=== PATIENT | female | born 1945 | race Caucasian/White ===

== ENCOUNTER 2017-10-23 12:51 | Outpatient (RCR) | payer MEDICARE, OTHER, SELFPAY ==
[2017-10-23 14:23] LABS: International Normalized Ratio 1.9; Prothrombin Time (Protime)PT. 21.1 SECONDS (11.7-14.9)
== END 2017-10-23 13:00 | disposition home or self-care (01) ==
LOC: MTLAB 12:51
PROVIDERS: Family Provider Family Medicine; PCP Family Medicine; Visit Provider Internal Medicine Cardiovascular Disease
DX: I48.0 Paroxysmal atrial fibrillation (principal)
CPT/HCPCS: 36415; 85610

== ENCOUNTER 2017-12-14 08:04 | Outpatient (RCR) | payer MEDICARE, OTHER, SELFPAY ==
[2017-11-19 12:10] LABS: International Normalized Ratio 2.4; Prothrombin Time (Protime)PT. 24.9 SECONDS (11.7-14.9)
[2017-12-14 10:39] LABS: AST(SGOT) 29 U/L (15-37); Alanine Aminotransfer ALT/SGPT 33 U/L (13-56); Albumin, Serum 3.8 g/dL (3.2-5.0); Alkaline Phosphatase 104 U/L (45-117); Bilirubin, Direct 0.09 mg/dL (0.00-0.30); Cholesterol 232 mg/dL (200); Globulin 3.7 g/dL (2.2-4.2); High Density Lipoprotein 43 mg/dL; Protein, Total 7.5 g/dL (6.4-8.2); Triglycerides 301 mg/dL; Very Low Density Lipoprotein 60 mg/dL (5-40)
[2017-12-21 12:18] LABS: Prothrombin Time (Protime)PT. 22.3 SECONDS (11.7-14.9)
== END 2017-12-14 09:00 | disposition home or self-care (01) ==
LOC: LAB 08:04
PROVIDERS: Family Provider Family Medicine; PCP Family Medicine; Visit Provider Internal Medicine Cardiovascular Disease
DX: E78.5 Hyperlipidemia, unspecified (principal); Z79.899 Other long term (current) drug therapy; I48.0 Paroxysmal atrial fibrillation
CPT/HCPCS: 36415; 80061; 80076; 85610

== ENCOUNTER 2018-01-21 09:15 | Outpatient (RCR) | payer MEDICARE, OTHER, SELFPAY ==
[2018-01-21 10:11] LABS: International Normalized Ratio 2.4; Prothrombin Time (Protime)PT. 26.1 SECONDS (11.7-14.9)
== END 2018-01-21 10:00 | disposition home or self-care (01) ==
LOC: LAB 09:15
PROVIDERS: Family Provider Family Medicine; PCP Family Medicine; Visit Provider Internal Medicine Cardiovascular Disease
DX: I48.0 Paroxysmal atrial fibrillation (principal)
CPT/HCPCS: 36415; 85610

== ENCOUNTER 2018-02-25 09:36 | Outpatient (RCR) | payer MEDICARE, OTHER, SELFPAY ==
[2018-02-25 12:30] LABS: International Normalized Ratio 2.6; Prothrombin Time (Protime)PT. 27.9 SECONDS (11.7-14.9)
== END 2018-02-25 10:00 | disposition home or self-care (01) ==
LOC: LAB 09:36
PROVIDERS: Family Provider Family Medicine; PCP Family Medicine; Visit Provider Internal Medicine Cardiovascular Disease
DX: I48.0 Paroxysmal atrial fibrillation (principal)
CPT/HCPCS: 36415; 85610

== ENCOUNTER → 2018-03-02 15:20 | Outpatient (CLI) | payer MEDICARE, OTHER, SELFPAY ==
[2018-03-02 17:56] LABS: Absolute Lymphocyte Count 4.51 X10^3/ul (0.83-4.51); Absolute Neutrophil Count 4.6 X10^3/uL (2.0-7.7); Basophil# 0.02 X10^3/uL; Basophil% 0.2 % (0-1); Eosinophil# 0.11 X10^3/uL; Eosinophils% 1.1 % (0-5); Hematocrit 37.8 % (37-47); Hemoglobin 12.5 g/dl (12.0-15.0); Lymphocyte # 4.51 X10^3/ul (4.0); Lymphocyte % 45.1 % (19-41); Mean Corp Hgb Conc 33.1 g/gl (32-36); Mean Corpuscular Hgb 30.3 pg (27.0-32.0); Mean Corpuscular Volume 91.5 fL (81-99); Monocyte# 0.74 X10^3/uL; Monocyte% 7.4 % (0-10); Neutrophil % 46.1 % (47-70); Platelet Count 302 K/mm3 (150-450); RBC Distribution Width CV 12.9 % (11.6-14.6); RBC Distribution Width SD 43.1 fl (35.1-43.9); Red Blood Count 4.13 M/mm3 (4.2-5.4)
[2018-03-02 18:01] LABS: POSITIVE COUNT NO; POSITIVE DIFFERENTIAL NO; POSITIVE MORPHOLOGY NO
[2018-03-02 18:05] LABS: ALB/GLOB Ratio 1.1 RATIO (0.9-2.4); AST(SGOT) 26 U/L (15-37); Alanine Aminotransfer ALT/SGPT 26 U/L (13-56); Albumin, Serum 4.1 g/dL (3.2-5.0); Alkaline Phosphatase 90 U/L (45-117); Anion Gap 10 (5-15); BUN 16 mg/dL (7-18); BUN/Creat Ratio 19.6 RATIO (10-20); Chloride 104 mmol/L (98-107); Creatinine, Serum 0.82 mg/dL (0.55-1.02); EST Glomerular Filtration Rate 73 mL/min (>60); Est Glom Filt Rate - Afr Amer 88 mL/min (>60); Globulin 3.6 g/dL (2.2-4.2); Glucose 89 mg/dL (74-106); Potassium 3.8 mmol/L (3.5-5.1); Protein, Total 7.7 g/dL (6.4-8.2); Sodium Level 138 mmol/L (136-145)
== END ==
PROVIDERS: Family Provider Family Medicine; PCP Family Medicine; Visit Provider Nurse Practitioner Adult Health
DX: R53.83 Other fatigue (principal)
CPT/HCPCS: 36415; 80053; 85025

== ENCOUNTER 2018-04-12 11:22 | Outpatient (RCR) | payer MEDICARE, OTHER, SELFPAY ==
[2018-04-12 15:04] LABS: International Normalized Ratio 2.5; Prothrombin Time (Protime)PT. 26.8 SECONDS (11.7-14.9)
== END 2018-04-12 12:00 | disposition home or self-care (01) ==
LOC: LAB 11:22
PROVIDERS: Family Provider Family Medicine; PCP Family Medicine; Visit Provider Internal Medicine Cardiovascular Disease
DX: I48.0 Paroxysmal atrial fibrillation (principal)
CPT/HCPCS: 36415; 85610

== ENCOUNTER 2018-05-31 12:46 | Outpatient (RCR) | payer MEDICARE, OTHER, SELFPAY | END 2018-05-31 14:00 | disposition home or self-care (01) | LOC: LAB 12:46 | PROVIDERS: Family Provider Family Medicine; PCP Family Medicine; Visit Provider Internal Medicine Cardiovascular Disease | DX: I48.0 Paroxysmal atrial fibrillation (principal) | CPT/HCPCS: 36416; 85610 ==

== ENCOUNTER 2018-07-06 16:03 | Outpatient (RCR) | payer MEDICARE, OTHER, SELFPAY ==
[2018-07-06 16:15] LABS: Prothrombin Time Fingerstick 32.4 SEC (11.9-14.4)
== END 2018-07-06 17:00 | disposition home or self-care (01) ==
LOC: MTLAB 16:03
PROVIDERS: Family Provider Family Medicine; PCP Family Medicine; Visit Provider Internal Medicine Cardiovascular Disease
DX: I48.0 Paroxysmal atrial fibrillation (principal)
CPT/HCPCS: 36416; 85610

== ENCOUNTER → 2018-07-22 08:28 | Outpatient (CLI) | payer MEDICARE, OTHER, SELFPAY ==
--- NOTE | 2018-07-22 08:32 | BI_ITS ---
MAMMOGRAPHY - BILATERAL SCREENING REASON FOR EXAM: Female, 73 years old. Routine annual screening examination. 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 2-D mediolateral oblique (MLO) and craniocaudad (CC) views of both breasts were obtained. CAD: Full Field Digital Mammography with Computer Added Detection was performed. COMPARISON: None. FINDINGS: Breast Composition: There are scattered areas of fibroglandular density. There are no dominant masses or suspicious calcifications. No other significant abnormalities are identified. BI/SCREENING MAMM (CAD), BILAT IMPRESSION: Stable bilateral screening mammogram. Yearly follow-up mammogram recommended. (A) ASSESSMENT CATEGORY: BIRADS Category 2: Benign. A letter regarding these results will be sent to the patient by the facility within 30 days. Approximately 10% of breast cancers are not detected by mammography. A normal mammogram should not delay biopsy of a clinically suspicious abnormality. [id number] Electronically Signed: Nahomi Matute MD at 16:28 EDT Tel , Service support ,
== END ==
PROVIDERS: Family Provider Family Medicine; PCP Family Medicine; Referring Provider Family Medicine; Visit Provider Family Medicine
DX: Z12.31 Encounter for screening mammogram for malignant neoplasm of breast (principal)
CPT/HCPCS: 77063; 77067

== ENCOUNTER → 2018-09-01 09:21 | Outpatient (CLI) | payer MEDICARE, OTHER, SELFPAY ==
[2018-09-01 10:11] LABS: International Normalized Ratio 1.5; Prothrombin Time (Protime)PT. 18.3 SECONDS (11.7-14.9)
[2018-09-01 10:35] LABS: AST(SGOT) 23 U/L (15-37); Alanine Aminotransfer ALT/SGPT 29 U/L (13-56); Albumin, Serum 3.7 g/dL (3.2-5.0); Alkaline Phosphatase 88 U/L (45-117); Bilirubin, Direct 0.16 mg/dL (0.00-0.30); Cholesterol 214 mg/dL (200); Globulin 3.6 g/dL (2.2-4.2); High Density Lipoprotein 49 mg/dL; Protein, Total 7.3 g/dL (6.4-8.2); Triglycerides 263 mg/dL; Very Low Density Lipoprotein 53 mg/dL (5-40)
== END ==
PROVIDERS: Family Provider Family Medicine; PCP Family Medicine; Referring Provider Internal Medicine Cardiovascular Disease; Visit Provider Internal Medicine Cardiovascular Disease
DX: E78.5 Hyperlipidemia, unspecified (principal); Z79.899 Other long term (current) drug therapy; Z79.01 Long term (current) use of anticoagulants; I47.1 Supraventricular tachycardia; I48.0 Paroxysmal atrial fibrillation
CPT/HCPCS: 36415; 80061; 80076; 85610

== ENCOUNTER → 2018-09-03 09:47 | Outpatient (CLI) | payer MEDICARE, OTHER, SELFPAY ==
[2018-09-03 11:15] LABS: Anion Gap 8 (5-15); BUN 11 mg/dL (7-18); BUN/Creat Ratio 16.4 RATIO (10-20); Calcium,Total 8.6 mg/dL (8.5-10.1); Chloride 103 mmol/L (98-107); Creatinine, Serum 0.67 mg/dL (0.55-1.02); EST Glomerular Filtration Rate 91 mL/min (>60); Est Glom Filt Rate - Afr Amer 110 mL/min (>60); Glucose 85 mg/dL (74-106); Magnesium 2.1 mg/dL (1.6-2.6); Potassium 4.1 mmol/L (3.5-5.1); Sodium Level 137 mmol/L (136-145); T4 Total, Thyroxin 9.8 ug/dL (4.8-13.9); Thyroid Stim Hormone (TSH) 1.33 uIU/mL (0.358-3.74)
== END ==
PROVIDERS: Family Provider Family Medicine; PCP Family Medicine; Referring Provider Internal Medicine Cardiovascular Disease; Visit Provider Internal Medicine Cardiovascular Disease
DX: I47.1 Supraventricular tachycardia (principal); I48.0 Paroxysmal atrial fibrillation; I49.3 Ventricular premature depolarization
CPT/HCPCS: 36415; 80048; 83735; 84436; 84443

== ENCOUNTER 2018-09-13 11:43 | Outpatient (RCR) | payer MEDICARE, OTHER, SELFPAY ==
[2018-08-27 14:10] LABS: Prothrombin Time Fingerstick 46.1 SEC (11.9-14.4)
[2018-08-27 16:07] LABS: International Normalized Ratio 3.3; Prothrombin Time (Protime)PT. 33.5 SECONDS (11.7-14.9)
[2018-09-13 14:46] LABS: International Normalized Ratio 1.8; Prothrombin Time (Protime)PT. 20.8 SECONDS (11.7-14.9)
== END 2018-09-13 12:00 | disposition home or self-care (01) ==
LOC: MTLAB 11:43
PROVIDERS: Family Provider Family Medicine; PCP Family Medicine; Referring Provider Internal Medicine Cardiovascular Disease; Visit Provider Internal Medicine Cardiovascular Disease
DX: I48.0 Paroxysmal atrial fibrillation (principal)
CPT/HCPCS: 36415; 36416; 85610

== ENCOUNTER 2018-09-27 11:01 | Outpatient (RCR) | payer MEDICARE, OTHER, SELFPAY ==
[2018-09-27 12:29] LABS: International Normalized Ratio 2.3; Prothrombin Time (Protime)PT. 25.3 SECONDS (11.7-14.9)
== END 2018-09-27 12:00 | disposition home or self-care (01) ==
LOC: MTLAB 11:01
PROVIDERS: Family Provider Family Medicine; PCP Family Medicine; Referring Provider Internal Medicine Cardiovascular Disease; Visit Provider Internal Medicine Cardiovascular Disease
DX: I47.1 Supraventricular tachycardia (principal)
CPT/HCPCS: 36415; 85610

== ENCOUNTER 2018-10-22 10:52 | Outpatient (RCR) | payer MEDICARE, OTHER, SELFPAY ==
[2018-10-22 12:32] LABS: International Normalized Ratio 2.3; Prothrombin Time (Protime)PT. 25.8 SECONDS (11.7-14.9)
== END 2018-10-22 12:00 | disposition home or self-care (01) ==
LOC: MTLAB 10:52
PROVIDERS: Physician Assistant Medical; Family Provider Family Medicine; PCP Family Medicine; Referring Provider Internal Medicine Cardiovascular Disease; Visit Provider Internal Medicine Cardiovascular Disease
DX: I47.1 Supraventricular tachycardia (principal)
CPT/HCPCS: 36415; 85610

== ENCOUNTER 2018-11-22 11:49 | Outpatient (RCR) | payer MEDICARE, OTHER, SELFPAY ==
[2018-11-22 12:06] LABS: Prothrombin Time Fingerstick 28.9 SEC (11.9-14.4)
== END 2018-11-22 12:00 | disposition home or self-care (01) ==
LOC: MTLAB 11:49
PROVIDERS: Family Provider Family Medicine; PCP Family Medicine; Referring Provider Internal Medicine Cardiovascular Disease; Visit Provider Internal Medicine Cardiovascular Disease
DX: I47.1 Supraventricular tachycardia (principal)
CPT/HCPCS: 36416; 85610

== ENCOUNTER → 2018-11-25 08:54 | Outpatient (CLI) | payer MEDICARE, OTHER, SELFPAY | PROVIDERS: Family Provider Family Medicine; PCP Family Medicine; Referring Provider Internal Medicine Cardiovascular Disease; Visit Provider Internal Medicine Cardiovascular Disease | DX: I47.1 Supraventricular tachycardia (principal); I49.3 Ventricular premature depolarization; I48.0 Paroxysmal atrial fibrillation; R00.2 Palpitations | CPT/HCPCS: 93225; 93226 ==

== ENCOUNTER 2018-12-17 11:16 | Outpatient (RCR) | payer MEDICARE, OTHER, SELFPAY ==
[2018-12-17 11:30] LABS: Prothrombin Time Fingerstick 28.8 SEC (11.9-14.4)
== END 2018-12-17 12:00 | disposition home or self-care (01) ==
LOC: MTLAB 11:16
PROVIDERS: Family Provider Family Medicine; PCP Family Medicine; Referring Provider Internal Medicine Cardiovascular Disease; Visit Provider Internal Medicine Cardiovascular Disease
DX: I47.1 Supraventricular tachycardia (principal)
CPT/HCPCS: 36416; 85610

== ENCOUNTER 2019-02-10 11:44 | Outpatient (RCR) | payer MEDICARE, OTHER, SELFPAY ==
[2019-01-17 11:31] LABS: Prothrombin Time Fingerstick 33.7 SEC (11.9-14.4)
[2019-02-10 12:05] LABS: Prothrombin Time Fingerstick 35.1 SEC (11.9-14.4)
== END 2019-02-15 16:00 | disposition home or self-care (01) ==
LOC: LAB 11:44
PROVIDERS: Family Provider Family Medicine; PCP Family Medicine; Referring Provider Internal Medicine Cardiovascular Disease; Visit Provider Internal Medicine Cardiovascular Disease
DX: I47.1 Supraventricular tachycardia (principal)
CPT/HCPCS: 36416; 85610

== ENCOUNTER → 2019-03-07 06:52 | Outpatient (CLI) | payer MEDICARE, OTHER, SELFPAY ==
[2019-01-27 13:33] VITALS: BMI 27.8
--- NOTE | 2019-03-07 06:54 | ECHOD_ITS ---
Reason For Study: DYSPNEA/SOB Procedure This was a 2D Doppler, Color Flow transthoracic echocardiogram. Exam performed in department. Left Ventricle Normal LV size. Left ventricular systolic function is normal. The estimated ejection fraction is 65 %. Stage 2 diastolic dysfunction. No regional wall motion abnormalities noted. Right Ventricle Normal RV size. Normal systolic function. Atria The left atrium is mildly enlarged. Normal right atrium. Mitral Valve Normal mitral valve. Mild (1+) mitral valve insufficiency. Tricuspid Valve Normal tricuspid valve. Mild (1+) tricuspid valve insufficiency. Pulmonary artery systolic pressure is 28 mmHg. Aortic Valve Normal aortic valve. Pulmonic Valve Normal pulmonic valve. Great Vessels Normal aortic root. The pulmonary artery is normal size. Normal inferior vena cava. Pericardium/Pleural No pericardial effusion. MMode/2D Measurements & Calculations LVIDd: 4.7 cm IVSd: 0.67 cm Ao root diam: 3.3 cm LVIDs: 2.7 cm LVPWd: 0.75 cm RVDd: 3.1 cm FS: 43.3 % LAV(MOD-bp): 69.6 ml LA A4 area: 22.7 cm2 LA dimension(2D): 3.3 cm LAV(MOD-bp) Indexed: 40.1 ml/m2 LAV(MOD-sp2): 62.9 ml LAV(MOD-sp4): 71.9 ml RA A4 area: 15.0 cm2 Time Measurements MV dec time: 0.15 sec Doppler Measurements & Calculations MV E max jones: 107.4 cm/sec Lat Peak E' Jones: 10.0 cm/sec Med Peak E' Jones: 7.9 cm/sec MV A max jones: 69.9 cm/sec E/E' lat: 10.8 E/E' med: 13.6 MV E/A: 1.5 Ao V2 max: 110.7 cm/sec LV V1 max: 108.8 cm/sec PA V2 max: 95.0 cm/sec Ao max P.9 mmHg LV V1 max P.7 mmHg TR max jones: 245.6 cm/sec TR max P.2 mmHg Interpretation Summary Normal LV size. Left ventricular systolic function is normal. The estimated ejection fraction is 65 %. Stage 2 diastolic dysfunction. Mild (1+) mitral valve insufficiency. Mild (1+) tricuspid valve insufficiency. Ordering Physician: Romero Reaves Referring Physician: Romero Ramos Performed By: Darcy Abbasi RDCS, RVT
--- NOTE | 2019-03-07 11:14 | STRESSREP ---
Stress Test Report Exercise myocardial perfusion stress test. 74-year-old lady with a history of chest pain. Stress protocol: Resting EKG demonstrates normal sinus rhythm with a rate of 67 bpm normal intervals are noted resting blood pressures 144/80 mmHg. The patient exercised according to regular Juan Diego protocol for a total duration of 6 minutes and 30 seconds. The maximum heart rate attained was 137 bpm which was 94% of maximum predicted heart rate the maximum workload was 7.7 metabolic equivalents. At rest there were no ST or T wave changes no suggest ischemia peak exercise upsloping ST changes only were noted with no meet the criteria for ischemia. During recovery there were nonspecific downsloping ST changes noted. The resting blood pressure was 144/80 with a final blood pressure 152/60 mmHg. Myocardial perfusion protocol. 11.1 mCi of technetium 99m sestamibi was injected at rest. The patient exercised according to regular Juan Diego protocol for total duration of 6-1/2 minutes. At peak exercise 32.9 mCi of technetium 99m sestamibi was injected stress images were obtained stress and rest images were reconstructed in comparing the short axis vertical long horizontal long axis. Gated images were also obtained Perfusion SPECT analysis: Review of the stress images demonstrate normal uptake of tracer noted in all areas of myocardium. The resting images similarly demonstrate normal uptake of tracer noted in all areas of the myocardium. No areas of reversibility are noted suggest ischemia no previous infarct is noted. Gated SPECT analysis: The gated ejection fraction is noted to be 81%. Conclusion: Normal exercise myocardial perfusion stress test at a moderate workload. Preserved ejection fraction.
== END ==
PROVIDERS: Family Provider Family Medicine; PCP Family Medicine; Referring Provider Nurse Practitioner Family; Visit Provider Nurse Practitioner Family
DX: R07.9 Chest pain, unspecified (principal); R06.00 Dyspnea, unspecified; I48.0 Paroxysmal atrial fibrillation
CPT/HCPCS: 78452; 93017; 93306; A9500; A4216

== ENCOUNTER 2019-03-15 13:43 | Outpatient (RCR) | payer MEDICARE, OTHER, SELFPAY ==
[2019-01-27 13:33] VITALS: BMI 27.8
[2019-03-15 15:42] LABS: International Normalized Ratio 2.9; Prothrombin Time (Protime)PT. 30.4 SECONDS (11.7-14.9)
== END 2019-03-15 15:00 | disposition home or self-care (01) ==
LOC: MTLAB 13:43
PROVIDERS: Family Provider Family Medicine; PCP Family Medicine; Referring Provider Internal Medicine Cardiovascular Disease; Visit Provider Internal Medicine Cardiovascular Disease
DX: I47.1 Supraventricular tachycardia (principal)
CPT/HCPCS: 36415; 85610

== ENCOUNTER 2019-05-03 12:48 | Outpatient (RCR) | payer MEDICARE, OTHER, SELFPAY ==
[2019-01-27 13:33] VITALS: BMI 27.8
[2019-04-19 15:26] LABS: Prothrombin Time Fingerstick 36.5 SEC (11.9-14.4)
[2019-05-03 13:56] LABS: International Normalized Ratio 2.6; Prothrombin Time (Protime)PT. 27.9 SECONDS (11.7-14.9)
== END 2019-05-18 15:59 | disposition home or self-care (01) ==
LOC: MTLAB 12:48
PROVIDERS: Family Provider Family Medicine; PCP Family Medicine; Referring Provider Internal Medicine Cardiovascular Disease; Visit Provider Internal Medicine Cardiovascular Disease
DX: I47.1 Supraventricular tachycardia (principal)
CPT/HCPCS: 36415; 36416; 85610

== ENCOUNTER 2019-06-03 13:20 | Outpatient (RCR) | payer MEDICARE, OTHER, SELFPAY ==
[2019-05-16 09:31] VITALS: BMI 27.8
[2019-06-03 17:14] LABS: Prothrombin Time Fingerstick 24.7 SEC (11.9-14.4)
== END 2019-06-03 14:20 | disposition home or self-care (01) ==
LOC: MTLAB 13:20
PROVIDERS: Family Provider Family Medicine; PCP Family Medicine; Referring Provider Internal Medicine Cardiovascular Disease; Visit Provider Internal Medicine Cardiovascular Disease
DX: I47.1 Supraventricular tachycardia (principal)
CPT/HCPCS: 36416; 85610

== ENCOUNTER → 2019-06-10 07:53 | Outpatient (CLI) | payer MEDICARE, OTHER, SELFPAY ==
[2019-05-16 09:31] VITALS: BMI 27.8
[2019-06-10 10:56] LABS: AST(SGOT) 23 U/L (15-37); Alanine Aminotransfer ALT/SGPT 28 U/L (13-56); Albumin, Serum 3.9 g/dL (3.2-5.0); Alkaline Phosphatase 111 U/L (45-117); Bilirubin, Direct 0.12 mg/dL (0.00-0.30); Cholesterol 209 mg/dL (200); Globulin 3.6 g/dL (2.2-4.2); High Density Lipoprotein 48 mg/dL; Protein, Total 7.5 g/dL (6.4-8.2); Triglycerides 269 mg/dL; Very Low Density Lipoprotein 54 mg/dL (5-40)
== END ==
PROVIDERS: Family Provider Family Medicine; PCP Family Medicine; Referring Provider Nurse Practitioner Family; Visit Provider Nurse Practitioner Family
DX: E78.00 Pure hypercholesterolemia, unspecified (principal)
CPT/HCPCS: 36415; 80061; 80076

== ENCOUNTER → 2019-07-08 11:26 | Outpatient (CLI) | payer MEDICARE, OTHER, SELFPAY ==
[2019-05-16 09:31] VITALS: BMI 27.8
[2019-07-08 13:01] LABS: Absolute Lymphocyte Count 2.99 X10^3/uL (0.83-4.51); Absolute Neutrophil Count 3.2 X10^3/uL (2.0-7.7); Basophil# 0.04 X10^3/uL; Basophil% 0.6 % (0-1); Eosinophil# 0.16 X10^3/uL; Eosinophils% 2.3 % (0-5); Hematocrit 37.5 % (37-47); Hemoglobin 12.3 g/dL (12.0-15.0); Lymphocyte # 2.99 X10^3/ul (4.0); Lymphocyte % 43.1 % (19-41); Mean Corp Hgb Conc 32.8 g/dL (32-36); Mean Corpuscular Hgb 30.5 pg (27.0-32.0); Mean Corpuscular Volume 93.1 fL (81-99); Monocyte# 0.56 X10^3/uL; Monocyte% 8.1 % (0-10); NRBC Flagged by Analyzer 0 % (0-5); Neutrophil # 3.17 X10^3/uL (2.7-7.7); Neutrophil % 45.8 % (47-70); Platelet Count 275 K/mm3 (150-450); RBC Distribution Width CV 12.7 % (11.6-14.6); RBC Distribution Width SD 43.1 fl (35.1-43.9); Red Blood Count 4.03 M/mm3 (4.2-5.4); White Blood Count 6.9 K/mm3 (4.4-11.0)
[2019-07-08 13:31] LABS: Vitamin D,25 Hydroxy 42.7 ng/mL (29.95-100.01)
[2019-07-08 13:35] LABS: Anion Gap 5 (5-15); BUN 11 mg/dL (7-18); BUN/Creat Ratio 14.5 RATIO (10-20); Calcium,Total 8.9 mg/dL (8.5-10.1); Chloride 108 mmol/L (98-107); Creatinine, Serum 0.76 mg/dL (0.55-1.02); EST Glomerular Filtration Rate 79 mL/min (>60); Est Glom Filt Rate - Afr Amer 96 mL/min (>60); Glucose 83 mg/dL (74-106); Potassium 3.9 mmol/L (3.5-5.1); Sodium Level 138 mmol/L (136-145)
== END ==
PROVIDERS: Family Provider Family Medicine; PCP Family Medicine; Referring Provider Family Medicine; Visit Provider Family Medicine
DX: R53.83 Other fatigue (principal); I10 Essential (primary) hypertension
CPT/HCPCS: 36415; 80048; 82306; 85025

== ENCOUNTER 2019-07-11 11:48 | Outpatient (RCR) | payer MEDICARE, OTHER, SELFPAY ==
[2019-05-16 09:31] VITALS: BMI 27.8
[2019-07-11 12:02] LABS: Prothrombin Time Fingerstick 27.3 SEC (11.9-14.4)
== END 2019-07-11 18:00 | disposition home or self-care (01) ==
LOC: MTLAB 11:48
PROVIDERS: Family Provider Family Medicine; PCP Family Medicine; Referring Provider Internal Medicine Cardiovascular Disease; Visit Provider Internal Medicine Cardiovascular Disease
DX: I47.1 Supraventricular tachycardia (principal)
CPT/HCPCS: 36416; 85610

== ENCOUNTER → 2019-07-25 08:18 | Outpatient (CLI) | payer MEDICARE, OTHER, SELFPAY ==
[2019-05-16 09:31] VITALS: BMI 27.8
--- NOTE | 2019-07-25 08:21 | BI_ITS ---
BILATERAL DIGITAL MAMMOGRAM WITH TOMOSYNTHESIS: Mediolateral oblique and craniocaudal views demonstrate no evidence of dominant parenchymal masses. No cluster of microcalcifications or architectural distortion is seen. No evidence of skin thickening is identified. There has been no significant change since 07/22/2018. Breast Density: The breast tissue is almost entirely fatty. CAD was used to assist in final assessment. IMPRESSION: NORMAL MAMMOGRAM BILATERALLY. FINAL ASSESSMENT: BIRAD 1 (NEGATIVE) YEARLY MAMMOGRAM RECOMMENDED Electronically Signed: Romero Anand, at 16:43 EDT Tel , Service support , BI/SCREEN MAMM (CAD) W/AMANDA ESPINAL
== END ==
PROVIDERS: Family Provider Family Medicine; PCP Family Medicine; Referring Provider Family Medicine; Visit Provider Family Medicine
DX: Z12.31 Encounter for screening mammogram for malignant neoplasm of breast (principal)
CPT/HCPCS: 77063; 77067

== ENCOUNTER 2019-08-11 11:56 | Outpatient (RCR) | payer MEDICARE, OTHER, SELFPAY ==
[2019-05-16 09:31] VITALS: BMI 27.8
[2019-08-11 12:07] LABS: Prothrombin Time Fingerstick 24.9 SEC (11.9-14.4)
== END 2019-08-11 18:00 | disposition home or self-care (01) ==
LOC: MTLAB 11:56
PROVIDERS: Family Provider Family Medicine; PCP Family Medicine; Referring Provider Internal Medicine Cardiovascular Disease; Visit Provider Internal Medicine Cardiovascular Disease
DX: I47.1 Supraventricular tachycardia (principal)
CPT/HCPCS: 36416; 85610

== ENCOUNTER 2019-09-14 10:25 | Outpatient (RCR) | payer MEDICARE, OTHER, SELFPAY ==
[2019-05-16 09:31] VITALS: BMI 27.8
[2019-09-20 08:04] LABS: Prothrombin Time Fingerstick 30.9 SEC (11.9-14.4)
== END 2019-09-14 18:00 | disposition home or self-care (01) ==
LOC: MTLAB 10:25
PROVIDERS: Family Provider Family Medicine; PCP Family Medicine; Referring Provider Internal Medicine Cardiovascular Disease; Visit Provider Internal Medicine Cardiovascular Disease
DX: I48.0 Paroxysmal atrial fibrillation (principal); Z79.01 Long term (current) use of anticoagulants
CPT/HCPCS: 36416; 85610

== ENCOUNTER → 2019-09-20 13:18 | Outpatient (CLI) | payer MEDICARE, OTHER, SELFPAY ==
[2019-05-16 09:31] VITALS: BMI 27.8
== END ==
PROVIDERS: Family Provider Family Medicine; PCP Family Medicine; Referring Provider Family Medicine; Visit Provider Family Medicine
DX: N39.0 Urinary tract infection, site not specified (principal)
CPT/HCPCS: 87086; 87088

== ENCOUNTER 2019-11-04 11:00 | Outpatient (RCR) | payer MEDICARE, OTHER, SELFPAY ==
[2019-05-16 09:31] VITALS: BMI 27.8
[2019-11-04 09:17] VITALS: BMI 28.5
[2019-11-04 11:15] LABS: Prothrombin Time Fingerstick 25.3 SEC (11.9-14.4)
== END 2019-11-04 18:00 | disposition home or self-care (01) ==
LOC: LAB 11:00
PROVIDERS: Family Provider Family Medicine; PCP Family Medicine; Referring Provider Internal Medicine Cardiovascular Disease; Visit Provider Internal Medicine Cardiovascular Disease
DX: I48.0 Paroxysmal atrial fibrillation (principal); Z79.01 Long term (current) use of anticoagulants
CPT/HCPCS: 36416; 85610

== ENCOUNTER → 2019-11-18 11:51 | Outpatient (CLI) | payer MEDICARE, OTHER, SELFPAY ==
[2019-11-04 09:17] VITALS: BMI 28.5
[2019-11-18 14:02] LABS: Absolute Lymphocyte Count 3.16 X10^3/uL (0.83-4.51); Basophil# 0.03 X10^3/uL; Basophil% 0.4 % (0-1); Eosinophil# 0.06 X10^3/uL; Eosinophils% 0.8 % (0-5); Hematocrit 38.2 % (37-47); Hemoglobin 12.6 g/dL (12.0-15.0); Lymphocyte # 3.16 X10^3/ul (4.0); Lymphocyte % 40.8 % (19-41); Mean Corpuscular Hgb 30.4 pg (27.0-32.0); Mean Platelet Vol. 11.2 fl (6.2-12.0); Monocyte# 0.51 X10^3/uL; Monocyte% 6.6 % (0-10); NRBC Flagged by Analyzer 0 % (0-5); Neutrophil # 3.98 X10^3/uL (2.7-7.7); Neutrophil % 51.3 % (47-70); Platelet Count 276 K/mm3 (150-450); RBC Distribution Width CV 12.3 % (11.6-14.6); RBC Distribution Width SD 41.5 fl (35.1-43.9); Red Blood Count 4.15 M/mm3 (4.2-5.4); White Blood Count 7.8 K/mm3 (4.4-11.0)
[2019-11-18 14:21] LABS: BUN 12 mg/dL (7-18); Creatinine, Serum 0.75 mg/dL (0.55-1.02); Glucose 103 mg/dL (74-106)
[2019-11-18 14:22] LABS: ALB/GLOB Ratio 1.1 RATIO (0.9-2.4); AST(SGOT) 28 U/L (15-37); Alanine Aminotransfer ALT/SGPT 31 U/L (13-56); Albumin, Serum 3.9 g/dL (3.2-5.0); Alkaline Phosphatase 89 U/L (45-117); Anion Gap 6 (5-15); Calcium,Total 9.1 mg/dL (8.5-10.1); Chloride 102 mmol/L (98-107); EST Glomerular Filtration Rate 80 mL/min (>60); Est Glom Filt Rate - Afr Amer 97 mL/min (>60); Globulin 3.5 g/dL (2.2-4.2); Potassium 3.8 mmol/L (3.5-5.1); Protein, Total 7.4 g/dL (6.4-8.2); Sodium Level 135 mmol/L (136-145); Thyroid Stim Hormone (TSH) 1.49 uIU/mL (0.358-3.74)
[2019-11-18 14:41] LABS: Vitamin B12 907 pg/mL (211-911)
[2019-11-21 21:08] LABS: Vitamin B1, Thiamine 135.9 nmol/L (66.5-200.0)
== END ==
PROVIDERS: PCP Family Medicine; Referring Provider Family Medicine; Visit Provider Family Medicine
DX: R10.13 Epigastric pain (principal); G62.9 Polyneuropathy, unspecified; I10 Essential (primary) hypertension
CPT/HCPCS: 36415; 80053; 82607; 84425; 84443; 85025

== ENCOUNTER 2019-11-23 09:00 | Outpatient (RCR) | payer MEDICARE, OTHER, SELFPAY ==
[2019-05-16 09:31] VITALS: BMI 27.8
--- NOTE | 2019-10-25 14:56 | HP.PTEVAL ---
Patient's Visit Information QUYEN LEVI is a 74 year old F referred to Physical Therapy by Romero García MD with a diagnosis of FIBROMYALGIA. Date of Evaluation: 10/25/19 Physical Therapist: Gene Barrera PT, Cert MDT, OCS - Visit Plan Frequency: 2x /Week Duration: 4 Weeks Plan: PT INTERVETIONS WITH MANUAL THERAPY STM/MYOFASCIAL,CERVICAL POSTURAL EX'S,MODALITIES THEN PROGRESS TO AQUATICS - Subjective Findings: This 74 y/o female presents to physical therapy with fibromyalagia ,bilateral shoulder pain. Pateint has had recent fall with arms outstretched about 2 months ago right worse than left. Patient pain located cervical spine UT with radicular symptosm to arms /scapular region as well as hands,chest. Aggravating symptoms ADLS,housework tasks ,lifting ,turning neck. Alleviating heat. Patient c/o SANCHEZ,denies tinnutis/dizziness. Although has h/o vertigo. Patient symptoms affects sleeping. Patient has had PT in past. Patient has h/o falling . Patient symptoms affects ADL'S,housework tasks and function. Patient symptoms affects QOL.Also,my arms feel weak affects my ADL'S. SOCIAL: . VOCATION: retired - Pain Bilateral Neck Pain Intensity (Out of 10): 6 Pain Intensity Range: 10 Bilateral Shoulder Pain Intensity (Out of 10): 6 Pain Intensity Range: 10 - Objective POSTURE: mild foward posture. PALAPTION: tender UT/levator/occiput. NEURO: denies parathesia/tingling reflexes C5-6-7 /. AROM: BUE WFL. MMT: BUE GROSSLY 4-/5. CERVICAL ROM: flexion mod loss,lateral flexion/rotation,extension mod loss pain. 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 - Special Tests C/S Radiculapathy - Left Upper limb tension test: Negative C/S Radiculapathy - Right Upper limb tension test: Negative C/S Radiculapathy - Left Spurlings: Positive C/S Radiculapathy - Right Spurlings: Positive C/S Radiculapathy - Left Cervical distraction: Negative C/S Radiculapathy - Right Cervical distraction: Negative C/S Radiculapathy - Left Relief test: Negative C/S Radiculapathy - Right Relief test: Negative Sharp Lizet: Negative Vertebral Artery Test: Negative Alar Ligament Test: Negative - Goals Goal 1:: Independant with HEP ,Then Aquatics Goal Time Frame: 4-6 Weeks Goal 2:: Decrease cervical pain by 50% or> to improve function. Goal Time Frame: 4-6 Weeks Goal 3:: Patient imp[rove cervical ROM for function of recovery Goal Time Frame: 4-6 Weeks Goal 4:: Patient to increase strength BUE to 4/5 to improve function with ADL'S Goal Time Frame: 4-6 Weeks Goal 5:: Patient to improve neck owestry score by 5 points or > to improve QOL. Goal Time Frame: 4-6 Weeks - Rehabilitation Potential Physical Therapy Diagnosis: This patient has cervical pain with radicular symptoms from falling in outstretched arm,pain affects cervical ROM ,stength deficits,SANCHEZ thus benifit from skilled PT initially then possible Aquatic per patient. Rehabilitation Potential: Good - Anticipated Interventions Patient/Client Instruction: Educate patient on: Condition, Plan of Care For the Purpose of:: To decrease pain, To increase ROM, To improve muscle performance and motor function, To improve ability to perform ADL's, To increase tolerance to activity/condition/position, To improve ability of physical actions for home/community/work/leisure, To improve health of tissue, To decrease soft tissue restriction, To increase flexibility/ROM, To improve ability to perform tasks related to life management Therapeutic Exercise to Include: Strength training, Body mechanics, Postural training, Flexibilty training, Active ROM For the Purpose of:: To decrease pain, To increase ROM, To improve nutrient delivery to tissue, To increase oxygenation perfusion, To increase tolerance to activity/condition/position, To improve performance and independence with ADL's, To improve ability of physical actions for home/community/work/leisure, To improve health of tissue, To decrease soft tissue restriction, To improve ability to perform tasks related to life management Manual Therapy Techniques to Include: Mobilization, Soft tissue mobilization For the Purpose of:: To decrease pain, To decrease swelling/inflammation, To increase ROM, To improve health of tissue, To decrease soft tissue restriction TENS: Yes IF ES: Yes Cryotherapy (ice pack, ice massage): Yes Thermo therapy (hot pack): Yes Ultrasound (thermal/non thermal): Yes For the Purpose of:: To decrease pain, To increase ROM, To improve nutrient delivery to tissue, To increase oxygenation perfusion, To improve health of tissue, To decrease soft tissue restriction Thank you for the opportunity to evaluate your patient. For Medicare and Medicare HMO plans, please review the plan of care and approve it. It will need to be FAXED BACK to us at [phone] for Medicare purposes. For Medicare only, by signing this I certify the plan of care. Please let me know if there are questions or concerns regarding this plan of care. Physician Signature: Date:
--- NOTE | 2019-11-23 09:37 | HP.PTEVAL ---
Patient's Visit Information QUYEN LEVI is a 74 year old F referred to Physical Therapy by Romero García MD with a diagnosis of FIBROMYALGIA. Date of Evaluation: 10/25/19 Physical Therapist: Gene Barrera PT, Cert MDT, OCS - Visit Plan Frequency: 2x /Week Duration: 4 Weeks Plan: d/c - Subjective Findings: This 74 y/o female presents to physical therapy with fibromyalagia ,bilateral shoulder pain. Pateint has had recent fall with arms outstretched about 2 months ago right worse than left. Patient pain located cervical spine UT with radicular symptosm to arms /scapular region as well as hands,chest. Aggravating symptoms ADLS,housework tasks ,lifting ,turning neck. Alleviating heat. Patient c/o SANCHEZ,denies tinnutis/dizziness. Although has h/o vertigo. Patient symptoms affects sleeping. Patient has had PT in past. Patient has h/o falling . Patient symptoms affects ADL'S,housework tasks and function. Patient symptoms affects QOL.Also,my arms feel weak affects my ADL'S. SOCIAL: . VOCATION: retired - Pain Bilateral Neck Pain Intensity (Out of 10): 0 Pain Intensity Range: 10 Bilateral Shoulder Pain Intensity (Out of 10): 0 Pain Intensity Range: 10 - Objective POSTURE: mild foward posture. PALAPTION: tender UT/levator/occiput. NEURO: denies parathesia/tingling reflexes C5-6-7 /. AROM: BUE WFL. MMT: BUE GROSSLY 4-/5. CERVICAL ROM: flexion mod loss,lateral flexion/rotation,extension mod loss pain. 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 - Special Tests C/S Radiculapathy - Left Upper limb tension test: Negative C/S Radiculapathy - Right Upper limb tension test: Negative C/S Radiculapathy - Left Spurlings: Positive C/S Radiculapathy - Right Spurlings: Positive C/S Radiculapathy - Left Cervical distraction: Negative C/S Radiculapathy - Right Cervical distraction: Negative C/S Radiculapathy - Left Relief test: Negative C/S Radiculapathy - Right Relief test: Negative Sharp Lizet: Negative Vertebral Artery Test: Negative Alar Ligament Test: Negative - Goals Goal 1:: Independant with HEP ,Then Aquatics Goal Time Frame: 4-6 Weeks Goal 2:: Decrease cervical pain by 50% or> to improve function. Goal Time Frame: 4-6 Weeks Goal 3:: Patient imp[rove cervical ROM for function of recovery Goal Time Frame: 4-6 Weeks Goal 4:: Patient to increase strength BUE to 4/5 to improve function with ADL'S Goal Time Frame: 4-6 Weeks Goal 5:: Patient to improve neck owestry score by 5 points or > to improve QOL. Goal Time Frame: 4-6 Weeks - Rehabilitation Potential Physical Therapy Diagnosis: This patient has cervical pain with radicular symptoms from falling in outstretched arm,pain affects cervical ROM ,stength deficits,SANCHEZ thus benifit from skilled PT initially then possible Aquatic per patient. Rehabilitation Potential: Good - Anticipated Interventions Patient/Client Instruction: Educate patient on: Condition, Plan of Care For the Purpose of:: To decrease pain, To increase ROM, To improve muscle performance and motor function, To improve ability to perform ADL's, To increase tolerance to activity/condition/position, To improve ability of physical actions for home/community/work/leisure, To improve health of tissue, To decrease soft tissue restriction, To increase flexibility/ROM, To improve ability to perform tasks related to life management Therapeutic Exercise to Include: Strength training, Body mechanics, Postural training, Flexibilty training, Active ROM For the Purpose of:: To decrease pain, To increase ROM, To improve nutrient delivery to tissue, To increase oxygenation perfusion, To increase tolerance to activity/condition/position, To improve performance and independence with ADL's, To improve ability of physical actions for home/community/work/leisure, To improve health of tissue, To decrease soft tissue restriction, To improve ability to perform tasks related to life management Manual Therapy Techniques to Include: Mobilization, Soft tissue mobilization For the Purpose of:: To decrease pain, To decrease swelling/inflammation, To increase ROM, To improve health of tissue, To decrease soft tissue restriction TENS: Yes IF ES: Yes Cryotherapy (ice pack, ice massage): Yes Thermo therapy (hot pack): Yes Ultrasound (thermal/non thermal): Yes For the Purpose of:: To decrease pain, To increase ROM, To improve nutrient delivery to tissue, To increase oxygenation perfusion, To improve health of tissue, To decrease soft tissue restriction Thank you for the opportunity to evaluate your patient. For Medicare and Medicare HMO plans, please review the plan of care and approve it. It will need to be FAXED BACK to us at [phone] for Medicare purposes. For Medicare only, by signing this I certify the plan of care. Please let me know if there are questions or concerns regarding this plan of care. Physician Signature: Date:
--- NOTE | 2019-11-25 08:19 | HP.PTDCSUM ---
HP - PT D/C Summary It has been my pleasure to treat QUYEN LEVI under orders from Romero García MD, for the diagnosis of FIBROMYALGIA for a total of 8 visit(s). Discharge Date: 11/23/19 Please see the following information for a summary of their discharge status. - Subjective Subjective: Doing well . Able to do ADLS' like vacummimg - Pain Bilateral Neck Pain Intensity (Out of 10): 0 Bilateral Shoulder Pain Intensity (Out of 10): 0 - Overall Improvement % Improvement: 80 - Objective Objective/Function: POSTURE: mild foward posture. NEURO: intact. PALAPTION: tender UT. BUE: WFL. MMT: 4/5 grossly. CERVICAL ROM: flexion min loss,extension mod loss ,lataerl flexion mod loss - Goals Goal 1:: Independant with HEP ,Then Aquatics Goal Progress: Goal Met Goal 2:: Decrease cervical pain by 50% or> to improve function. Goal Progress: Goal Met Goal 3:: Patient imp[rove cervical ROM for function of recovery Goal Progress: Goal Met Goal 4:: Patient to increase strength BUE to 4/5 to improve function with ADL'S Goal Progress: Goal Met Goal 5:: Patient to improve neck owestry score by 5 points or > to improve QOL. Goal Progress: Goal Met - Plan Plan: d/c - D/C Information If there are questions or concerns regarding this patient's physical therapy, please feel free to call me at [phone]. Thank you for the referral of this patient. Sincerely, Gene Barrera, PT, Cert MDT, OCS
== END 2019-11-23 19:00 | disposition home or self-care (01) ==
LOC: PT 09:00
PROVIDERS: Family Provider Family Medicine; PCP Family Medicine; Referring Provider Family Medicine; Visit Provider Family Medicine
DX: M79.7 Fibromyalgia (principal); M25.512 Pain in left shoulder; M25.511 Pain in right shoulder
CPT/HCPCS: 97035; 97140; 97162; 97530

== ENCOUNTER 2019-12-02 10:03 | Outpatient (RCR) | payer MEDICARE, OTHER, SELFPAY ==
[2019-12-05 07:46] LABS: Prothrombin Time Fingerstick 28.1 SEC (11.9-14.4)
== END 2019-12-02 18:00 | disposition home or self-care (01) ==
LOC: MTLAB 10:03
PROVIDERS: Family Provider Family Medicine; PCP Family Medicine; Referring Provider Internal Medicine Cardiovascular Disease; Visit Provider Internal Medicine Cardiovascular Disease
DX: I48.0 Paroxysmal atrial fibrillation (principal); Z79.01 Long term (current) use of anticoagulants
CPT/HCPCS: 36416; 85610

== ENCOUNTER → 2019-12-05 07:47 | Outpatient (CLI) | payer MEDICARE, OTHER, SELFPAY ==
--- NOTE | 2019-12-05 07:51 | US_ITS ---
STUDY: ABDOMINAL ULTRASOUND - RIGHT UPPER QUADRANT REASON FOR VISIT: Female, 74 years old rug tenderness TECHNIQUE: Ultrasound evaluation of the right upper quadrant was performed with real-time and static mackey-scale imaging. TECHNICAL QUALITY: Adequate. COMPARISON: None. FINDINGS: Liver: The liver measures 12.0 cm. There is increased echogenicity consistent with fatty infiltration. The bile ducts are within normal limits. There is hepatic color flow. The direction of portal flow is hepatopetal. 3 cysts are seen in the liver. The largest in the right lobe measures 4 cm x 3.7 cm by 3.1 cm. The single cyst in the left lobe of the liver measures 2.4 cm x 2.87 x 1.4 cm. Gallbladder: Normal distended gallbladder. The gallbladder wall measures 2.0 mm. There is a negative sonographic Velasco''s sign. There is no pericholecystic fluid. There are no gallstones. Common Bile Duct (C.B.D.): The common bile duct measures 2.0 mm. Pancreas: Normal size of the head, body and tail of the pancreas. There is normal echogenicity of the pancreas. There is no demonstrated pancreatic mass or cyst. Right Kidney: Normal size of the right kidney. The right kidney measures 10.1 cm x 4.1 cm x 5.7 cm. Normal renal cortex. The right cortex measures 1.7 cm. There is a 9 mm x 7 mm x 4 mm cyst. There is no right hydronephrosis. US/Abdomen Limited IMPRESSION: Hepatic cysts. Electronically Signed: Vernon Pulliam, at 11:09 EST , Service support ,
[2019-12-05 08:55] LABS: AST(SGOT) 25 U/L (15-37); Alanine Aminotransfer ALT/SGPT 29 U/L (13-56); Albumin, Serum 3.8 g/dL (3.2-5.0); Alkaline Phosphatase 90 U/L (45-117); Bilirubin, Direct 0.16 mg/dL (0.00-0.30); Cholesterol 228 mg/dL (200); Globulin 3.4 g/dL (2.2-4.2); High Density Lipoprotein 52 mg/dL; Protein, Total 7.2 g/dL (6.4-8.2); Triglycerides 247 mg/dL; Very Low Density Lipoprotein 49 mg/dL (5-40)
== END ==
LOC: OPUS 07:48 → PAVLAB 08:20
PROVIDERS: Nurse Practitioner Family; PCP Family Medicine; Referring Provider Internal Medicine Cardiovascular Disease; Visit Provider Family Medicine
DX: E78.00 Pure hypercholesterolemia, unspecified (principal); E78.5 Hyperlipidemia, unspecified; R10.811 Right upper quadrant abdominal tenderness
CPT/HCPCS: 36415; 76705; 80061; 80076

== ENCOUNTER 2020-01-20 09:08 | Outpatient (RCR) | payer MEDICARE, OTHER, SELFPAY ==
[2020-01-20 09:21] LABS: Prothrombin Time Fingerstick 24.5 SEC (11.9-14.4)
== END 2020-02-16 18:00 | disposition home or self-care (01) ==
LOC: MTLAB 09:08
PROVIDERS: Family Provider Family Medicine; PCP Family Medicine; Referring Provider Internal Medicine Cardiovascular Disease; Visit Provider Internal Medicine Cardiovascular Disease
DX: I48.0 Paroxysmal atrial fibrillation (principal); Z79.01 Long term (current) use of anticoagulants
CPT/HCPCS: 36416; 85610

== ENCOUNTER 2020-03-01 11:00 | Outpatient (RCR) | payer MEDICARE, OTHER, SELFPAY ==
[2020-03-01 11:06] LABS: Prothrombin Time Fingerstick 25.3 SEC (11.9-14.4)
== END 2020-03-01 18:00 | disposition home or self-care (01) ==
LOC: MTLAB 11:00
PROVIDERS: Family Provider Family Medicine; PCP Family Medicine; Referring Provider Internal Medicine Cardiovascular Disease; Visit Provider Internal Medicine Cardiovascular Disease
DX: I48.0 Paroxysmal atrial fibrillation (principal); Z79.01 Long term (current) use of anticoagulants
CPT/HCPCS: 36416; 85610

== ENCOUNTER 2020-03-30 11:14 | Outpatient (RCR) | payer MEDICARE, OTHER, SELFPAY ==
[2020-04-02 16:01] LABS: Prothrombin Time Fingerstick 26.4 SEC (11.9-14.4)
== END 2020-03-30 18:00 | disposition home or self-care (01) ==
LOC: MTLAB 11:14
PROVIDERS: Family Provider Family Medicine; PCP Family Medicine; Referring Provider Internal Medicine Cardiovascular Disease; Visit Provider Internal Medicine Cardiovascular Disease
DX: I48.0 Paroxysmal atrial fibrillation (principal); Z79.01 Long term (current) use of anticoagulants
CPT/HCPCS: 36416; 85610

== ENCOUNTER 2020-04-26 15:51 | Outpatient (RCR) | payer MEDICARE, OTHER, SELFPAY ==
[2020-04-26 16:10] LABS: Prothrombin Time Fingerstick 24.5 SEC (11.9-14.4)
== END 2020-04-26 18:00 | disposition home or self-care (01) ==
LOC: MTLAB 15:51
PROVIDERS: Family Provider Family Medicine; PCP Family Medicine; Referring Provider Internal Medicine Cardiovascular Disease; Visit Provider Internal Medicine Cardiovascular Disease
DX: I48.0 Paroxysmal atrial fibrillation (principal); Z79.01 Long term (current) use of anticoagulants
CPT/HCPCS: 36416; 85610

== ENCOUNTER 2020-05-30 12:29 | Outpatient (RCR) | payer MEDICARE, OTHER, SELFPAY ==
[2020-05-30 10:45] VITALS: BMI 28.8
[2020-05-30 13:41] LABS: Absolute Neutrophil Count 3.5 X10^3/uL (2.0-7.7); Basophil# 0.04 X10^3/uL; Basophil% 0.5 % (0-1); Eosinophil# 0.08 X10^3/uL; Mean Corp Hgb Conc 33.3 g/dL (32-36); Mean Corpuscular Hgb 31.9 pg (27.0-32.0); Mean Corpuscular Volume 95.6 fL (81-99); Mean Platelet Vol. 10.9 fl (6.2-12.0); Monocyte# 0.67 X10^3/uL; Monocyte% 8.3 % (0-10); NRBC Flagged by Analyzer 0 % (0-5); Neutrophil # 3.54 X10^3/uL (2.7-7.7); Platelet Count 355 K/mm3 (150-450); RBC Distribution Width CV 12.5 % (11.6-14.6); RBC Distribution Width SD 43.5 fl (35.1-43.9); Red Blood Count 4.08 M/mm3 (4.2-5.4); White Blood Count 8.1 K/mm3 (4.4-11.0)
[2020-05-30 13:52] LABS: International Normalized Ratio 2.8; Prothrombin Time (Protime)PT. 29.1 SECONDS (11.7-14.9)
[2020-05-30 14:03] LABS: Anion Gap 3 (5-15); BUN 15 mg/dL (7-18); BUN/Creat Ratio 19.8 RATIO (10-20); Chloride 102 mmol/L (98-107); Creatinine, Serum 0.76 mg/dL (0.55-1.02); EST Glomerular Filtration Rate 79 mL/min (>60); Est Glom Filt Rate - Afr Amer 96 mL/min (>60); Glucose 102 mg/dL (74-106); Magnesium 2.4 mg/dL (1.6-2.6); Potassium 4.3 mmol/L (3.5-5.1); Sodium Level 137 mmol/L (136-145)
[2020-05-30 14:10] LABS: BNP,B-Type NATRIURETIC PEPTIDE 81.9 pg/mL (0-100)
== END 2020-06-18 18:00 | disposition home or self-care (01) ==
LOC: LAB 12:29
PROVIDERS: Nurse Practitioner Family; Family Provider Family Medicine; PCP Family Medicine; Referring Provider Internal Medicine Cardiovascular Disease; Visit Provider Internal Medicine Cardiovascular Disease
DX: I48.0 Paroxysmal atrial fibrillation (principal); Z79.01 Long term (current) use of anticoagulants; R06.00 Dyspnea, unspecified; I10 Essential (primary) hypertension; E78.00 Pure hypercholesterolemia, unspecified
CPT/HCPCS: 36415; 80048; 83735; 83880; 85025; 85610

== ENCOUNTER 2020-06-21 12:14 | Outpatient (RCR) | payer MEDICARE, OTHER, SELFPAY ==
[2020-06-21 15:20] LABS: Prothrombin Time Fingerstick 22.3 SEC (11.9-14.4)
== END 2020-06-21 18:00 | disposition home or self-care (01) ==
LOC: LAB 12:14
PROVIDERS: Family Provider Family Medicine; PCP Family Medicine; Referring Provider Internal Medicine Cardiovascular Disease; Visit Provider Internal Medicine Cardiovascular Disease
DX: I48.0 Paroxysmal atrial fibrillation (principal); Z79.01 Long term (current) use of anticoagulants
CPT/HCPCS: 36416; 85610

== ENCOUNTER 2020-07-27 14:44 | Outpatient (RCR) | payer MEDICARE, OTHER, SELFPAY ==
[2020-06-27 09:37] VITALS: BMI 28.8
[2020-07-30 07:50] LABS: Prothrombin Time Fingerstick 31.8 SEC (11.9-14.4)
== END 2020-07-27 18:00 | disposition home or self-care (01) ==
LOC: LAB 14:44
PROVIDERS: Family Provider Family Medicine; PCP Family Medicine; Referring Provider Internal Medicine Cardiovascular Disease; Visit Provider Internal Medicine Cardiovascular Disease
DX: I48.0 Paroxysmal atrial fibrillation (principal); Z79.01 Long term (current) use of anticoagulants
CPT/HCPCS: 36416; 85610

== ENCOUNTER → 2020-07-30 09:18 | Outpatient (CLI) | payer MEDICARE, OTHER, SELFPAY ==
[2020-06-27 09:37] VITALS: BMI 28.8
--- NOTE | 2020-07-30 09:24 | RAD_ITS ---
STUDY: X-RAY - LEFT SHOULDER REASON FOR EXAM: Left shoulder lifting injury in June. TECHNIQUE: 4 view(s) of the shoulder. COMPARISON: None. FINDINGS: Normal glenohumeral articulation. There is mild acromioclavicular arthrosis. Normal acromion. Normal humeral head and visualized proximal humerus. The soft tissue structures are unremarkable. Normal visualized pulmonary apex. RAD/Shoulder min 2 Views IMPRESSION: Mild acromioclavicular arthrosis. Electronically Signed: Luis M Perry MD at 10:12 EDT Tel , Service support ,
== END ==
PROVIDERS: PCP Family Medicine; Referring Provider Nurse Practitioner Adult Health; Visit Provider Nurse Practitioner Adult Health
DX: S49.92XD Unspecified injury of left shoulder and upper arm, subsequent encounter (principal)
CPT/HCPCS: 73030

== ENCOUNTER → 2020-08-14 08:06 | Outpatient (CLI) | payer MEDICARE, OTHER, SELFPAY ==
[2020-06-27 09:37] VITALS: BMI 28.8
--- NOTE | 2020-08-14 08:09 | BI_ITS ---
MAMMOGRAPHY - BILATERAL SCREENING REASON FOR EXAM: Female, 75 years old. Routine annual screening examination. PERTINENT HISTORY: Non-contributory. TECHNIQUE: Digital bilateral breast amanda (3D mammographic acquisition) in the CC and MLO projections. 2-D mediolateral oblique (MLO) and craniocaudad (CC) views of both breasts were obtained. CAD: Full Field Digital Mammography with Computer Added Detection was performed. COMPARISON: Comparison is made with prior study dated 07/25/2019 and 07/22/2018. FINDINGS: Breast Composition: The breasts are almost entirely fatty. There are no dominant masses or suspicious calcifications. No other significant abnormalities are identified. There has been no significant change since the prior study. BI/SCREEN MAMM (CAD) W/AMANDA BILAT IMPRESSION: Stable bilateral screening mammogram. Yearly follow-up mammogram recommended. (A) ASSESSMENT CATEGORY: BIRADS Category 1: Negative. A letter regarding these results will be sent to the patient by the facility within 30 days. Approximately 10% of breast cancers are not detected by mammography. A normal mammogram should not delay biopsy of a clinically suspicious abnormality. [id number] Electronically Signed: Vernon Pulliam, at 9:16 EDT , Service support ,
--- NOTE | 2020-08-14 08:53 | BD_ITS ---
STUDY: DUAL ENERGY X-RAY ABSORPTIOMETRY / DXA REASON FOR EXAM: Female, 75 years old. 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 COMPARISON: Comparison is made with prior study dated 05/20/2016. FINDINGS: Lumbar Spine (L1-L4): g/cm2 (1.297) / T-score (1.1) / Z-score (2.8) Findings are suggestive of normal bone density with a low fracture risk. Left Femur Total: g/cm2 (1.003) / T-score (0.0) / Z-score (1.8) Left Femoral Neck: g/cm2 (0.98) / T-score (-0.4) / Z-score (1.6) Right Femur Total: g/cm2 (1.019) / T-score (0.1) / Z-score (1.) Right Femoral Neck: g/cm2 (0.997) / T-score (-0.3) / Z-score (1.7) The T-Scores on the most recent prior examination were: Lumbar Spine (L1-L4): There has been improvement of bone density since the previous examination. Left Femur Total: which represents a worsening of 2.4%. Right Femur Total: which represents a worsening of 1.7%. BD/Dexa Bone Density Study IMPRESSION: The patient is considered normal as outlined below according to World [place] Organization (WHO) criteria with a low fracture risk. There has been worsening of bone density since the previous examination. Reference Information: The T-score is the number of standard deviations above or below the standard which is normal for young adults at their peak bone mineral density. The World Health Organization (WHO) interprets the T-scores as follows: Above -1 Normal bone density Between -1 and -2.5 Osteopenia Equal to / or below -2.5 Osteoporosis As a practical clinical guideline, osteopenia may be graded as follows: Mild -1 through -1.5 Moderate -1.6 through -2.0 Severe -2.1 through -2.4 The Z-score is the number of standard deviations above or below age-matched controls. A Z-score of less than -1.5 would be considered abnormal. References: 1. NIH Osteoporosis and Related Bone Diseases www osteo.org 2. International Society for Clinical Densitometry www iscd.org 3. National Osteoporosis Foundation www nof.org Electronically Signed: Vernon Pulliam, at 10:54 EDT , Service support ,
== END ==
PROVIDERS: PCP Family Medicine; Referring Provider Family Medicine; Visit Provider Family Medicine
DX: Z12.31 Encounter for screening mammogram for malignant neoplasm of breast (principal); N95.9 Unspecified menopausal and perimenopausal disorder
CPT/HCPCS: 77063; 77067; 77080

== ENCOUNTER 2020-09-05 09:00 | Outpatient (RCR) | payer MEDICARE, OTHER, SELFPAY ==
[2020-06-27 09:37] VITALS: BMI 28.8
--- NOTE | 2020-08-01 10:05 | HP.PTEVAL ---
Patient's Visit Information QUYEN LEVI is a 75 year old F referred to Physical Therapy by Dr. Romero García MD with a diagnosis of CERVICALGIA,LEFT ARM NUMBNESS. Date of Evaluation: 08/01/20 Physical Therapist: Gene Barrera PT, Cert MDT, OCS - Visit Plan Frequency: 2x /Week Duration: 4 Weeks Plan: HIGHLY IRRATATED. PT INTERVETIONS MODLATIES FOR PAIN,CERVICAL POSTURAL EXCERCISES,MANUAL THERAPY - Subjective This 75 y/o female presents to physical therapy with cervical pain with radicuar symptoms left arm.Patient developed left shoulder pain Sept lifting something out of car trunk. Symptoms with parathesia/tingling in left arm progressively worse . Seen DR did x-rays. Recommended neurotin but stopped,but continues with tramadol at night.Pain pain left scapular sharp pain to hand,buring in tricep. Aggraveing factors lifting,turning,flexon ,sitting and affects sleepin. Alleviating factors heat,MEDS. Denies SANCHEZ occassional SANCHEZ. Denies nausea but has h/o vertigo. Patient pain affects sleeping.Patient symptoms affects ADLS and housework tasks. Patient symptoms affects QOL.Patient has no trauma ,has h/o chiropractor and injections 2004. SOCAIL: . VOCATION: retired - Pain Left Neck Pain Intensity (Out of 10): 5 Pain Intensity Range: 10 Left Scapula Pain Intensity (Out of 10): 10 Pain Intensity Range: 10 - Objective POSTURE: mild foward posture,thoracic kyphosis. NEURO: c/o parathesia /tingling left arm to hand,reflexes C5-6-7 10/21. PALAPTION: tender UT/LEVATOR. AROM SHOULDER: WFL. CERVICAL ROM: flexion mod loss,lateral flexion/rotation mod loss left pain,extension pain scapular arm,mod lateral flexion/rotation mod loss pain. COMPUTER GRAPHIC ARTIST STRENGTH: 25 # dynamotor. MMT: BUE 4/5 SHOULDER 4-/5 - Special Tests C/S Radiculapathy - Left Upper limb tension test: Negative C/S Radiculapathy - Right Upper limb tension test: Positive C/S Radiculapathy - Left Spurlings: Positive C/S Radiculapathy - Right Spurlings: Positive C/S Radiculapathy - Left Cervical distraction: Positive C/S Radiculapathy - Right Cervical distraction: Positive C/S Radiculapathy - Left Relief test: Negative C/S Radiculapathy - Right Relief test: Negative Sharp Lizet: Negative Vertebral Artery Test: Negative Alar Ligament Test: Negative - Goals Goal 1:: I with HEP Goal Time Frame: 4-6 Weeks Goal 2:: Decrease cervical radiculaopthy by 50% or > to improve function with ADL's. Goal Time Frame: 4-6 Weeks Goal 3:: Patient to improve cervical ROM for function of recovery with less pain. Goal Time Frame: 4-6 Weeks Goal 4:: Patient to improve neck owestry by 5 points or > to improve QOL. Goal Time Frame: 4-6 Weeks Goal 5:: Patient be able to perform ADL'S and housework activities with less symptoms in arm. Goal Time Frame: 4-6 Weeks - Rehabilitation Potential Physical Therapy Diagnosis: This patient has left lateral stenosis with severe pain and parathesia/tingling in left arm with poor ROM which affects left arm symptoms, + spurling ,postioning thus impairs patient function and ADL'S Rehabilitation Potential: Good - Anticipated Interventions Patient/Client Instruction: Educate patient on: Condition, Plan of Care For the Purpose of:: To decrease pain, To increase ROM, To improve muscle performance and motor function, To increase tolerance to activity/condition/position, To improve performance and independence with ADL's, To improve ability of physical actions for home/community/work/leisure, To improve health of tissue, To decrease soft tissue restriction, To increase flexibility/ROM, To improve ability to perform tasks related to life management Therapeutic Exercise to Include: Strength training, Postural training, Flexibilty training, Active ROM For the Purpose of:: To decrease pain, To increase ROM, To improve muscle performance and motor function, To improve ability to perform ADL's, To increase tolerance to activity/condition/position, To improve ability of physical actions for home/community/work/leisure, To improve health of tissue, To decrease soft tissue restriction, To increase flexibility/ROM, To reduce risk of recurrence, To improve ability to perform tasks related to life management Manual Therapy Techniques to Include: Mobilization, Soft tissue mobilization For the Purpose of:: To decrease pain, To increase ROM, To improve nutrient delivery to tissue, To increase oxygenation perfusion, To improve health of tissue, To decrease soft tissue restriction TENS: Yes IF ES: Yes Cryotherapy (ice pack, ice massage): Yes Thermo therapy (hot pack): Yes For the Purpose of:: To decrease pain, To improve nutrient delivery to tissue, To increase oxygenation perfusion, To improve health of tissue, To decrease soft tissue restriction Thank you for the opportunity to evaluate your patient. For Medicare and Medicare HMO plans, please review the plan of care and approve it. It will need to be FAXED BACK to us at [phone] for Medicare purposes. For Medicare only, by signing this I certify the plan of care. Please let me know if there are questions or concerns regarding this plan of care. Physician Signature: Date:
--- NOTE | 2020-09-05 10:19 | HP.PTDCSUM ---
It has been my pleasure to treat QUYEN LEVI referred by Dr. Romeor García MD, with the diagnosis of CERVICALGIA,LEFT ARM NUMBNESS for a total of 10 visit(s). Discharge Date: 09/05/20 Please see the following information for a summary of their discharge status. Subjective: Doing alot better no pain,jus some parathesia in fingers Left Neck Pain Intensity (Out of 10): 0 Left Scapula Pain Intensity (Out of 10): 0 % Improvement: 65 Objective/Function: POSTURE: mild thoracic kyphosis. AROM BLE: WFL. MMT: BUE 4/5 ,SHOULDER 4-/5. CERVICAL ROM: flexion min loss ,lateral flexion/rotation ,extension mod loss Goal 1:: I with HEP Goal Progress: Goal Met Goal 2:: Decrease cervical radiculaopthy by 50% or > to improve function with ADL's. Goal Progress: Goal Met Goal 3:: Patient to improve cervical ROM for function of recovery with less pain. Goal Progress: Goal Met Goal 4:: Patient to improve neck owestry by 5 points or > to improve QOL. Goal Progress: Goal Met Goal 5:: Patient be able to perform ADL'S and housework activities with less symptoms in arm. Goal Progress: Goal Met Plan: D/C Discharge Comments: HEP If there are questions or concerns regarding this patient's physical therapy, please feel free to call me at [phone]. Thank you for the referral of this patient. Sincerely, Gene Barrera PT, Cert MDT, OCS
== END 2020-09-05 19:00 | disposition home or self-care (01) ==
LOC: PT 09:00
PROVIDERS: PCP Family Medicine; Referring Provider Family Medicine; Visit Provider Family Medicine
DX: M54.2 Cervicalgia (principal); R20.0 Anesthesia of skin
CPT/HCPCS: 97014; 97035; 97162; 97530; G0283

== ENCOUNTER 2020-10-08 13:31 | Outpatient (RCR) | payer MEDICARE, OTHER, SELFPAY ==
[2020-06-27 09:37] VITALS: BMI 28.8
[2020-09-20 12:34] LABS: Prothrombin Time (Protime)PT. 34.6 SECONDS (11.7-14.9)
[2020-09-20 12:51] LABS: International Normalized Ratio 3.5
[2020-10-08 16:19] LABS: International Normalized Ratio 2.8; Prothrombin Time (Protime)PT. 29.4 SECONDS (11.7-14.9)
== END 2020-10-08 18:00 | disposition home or self-care (01) ==
LOC: MTLAB 13:31
PROVIDERS: Family Provider Family Medicine; PCP Family Medicine; Referring Provider Internal Medicine Cardiovascular Disease; Visit Provider Internal Medicine Cardiovascular Disease
DX: I48.0 Paroxysmal atrial fibrillation (principal); Z79.01 Long term (current) use of anticoagulants
CPT/HCPCS: 36415; 36416; 85610

== ENCOUNTER → 2020-10-23 10:49 | Outpatient (CLI) | payer MEDICARE, OTHER, SELFPAY ==
[2020-06-27 09:37] VITALS: BMI 28.8
[2020-10-23 12:38] LABS: Anion Gap 6 (5-15); BUN 14 mg/dL (7-18); BUN/Creat Ratio 19.7 RATIO (10-20); Calcium,Total 9.1 mg/dL (8.5-10.1); Chloride 105 mmol/L (98-107); Creatinine, Serum 0.71 mg/dL (0.55-1.02); EST Glomerular Filtration Rate 85 mL/min (>60); Est Glom Filt Rate - Afr Amer 102 mL/min (>60); Glucose 94 mg/dL (74-106); Magnesium 2.1 mg/dL (1.6-2.6); Sodium Level 136 mmol/L (136-145)
== END ==
PROVIDERS: PCP Family Medicine; Referring Provider Family Medicine; Visit Provider Family Medicine
DX: R42 Dizziness and giddiness (principal)
CPT/HCPCS: 36415; 80048; 83735

== ENCOUNTER 2020-12-05 12:38 | Outpatient (RCR) | payer MEDICARE, OTHER, SELFPAY ==
[2020-06-27 09:37] VITALS: BMI 28.8
[2020-12-05 15:48] LABS: International Normalized Ratio 2.3; Prothrombin Time (Protime)PT. 25.1 SECONDS (11.7-14.9)
== END 2020-12-05 18:00 | disposition home or self-care (01) ==
LOC: MTLAB 12:38
PROVIDERS: Family Provider Family Medicine; PCP Family Medicine; Referring Provider Internal Medicine Cardiovascular Disease; Visit Provider Internal Medicine Cardiovascular Disease
DX: I48.0 Paroxysmal atrial fibrillation (principal); Z79.01 Long term (current) use of anticoagulants
CPT/HCPCS: 36415; 85610

== ENCOUNTER → 2020-12-11 08:59 | Outpatient (CLI) | payer MEDICARE, OTHER, SELFPAY ==
[2020-06-27 09:37] VITALS: BMI 28.8
[2020-12-11 10:37] LABS: AST(SGOT) 33 U/L (15-37); Alanine Aminotransfer ALT/SGPT 36 U/L (13-56); Alkaline Phosphatase 89 U/L (45-117); Bilirubin, Direct 0.11 mg/dL (0.00-0.30); Cholesterol 217 mg/dL (200); Globulin 3.3 g/dL (2.2-4.2); High Density Lipoprotein 50 mg/dL; Protein, Total 7.3 g/dL (6.4-8.2); Triglycerides 323 mg/dL; Very Low Density Lipoprotein 65 mg/dL (5-40)
== END ==
PROVIDERS: PCP Family Medicine; Referring Provider Internal Medicine Cardiovascular Disease; Visit Provider Internal Medicine Cardiovascular Disease
DX: E78.5 Hyperlipidemia, unspecified (principal)
CPT/HCPCS: 36415; 80061; 80076

== ENCOUNTER 2020-12-13 10:45 | Outpatient (RCR) | payer MEDICARE, SELFPAY ==
[2020-06-27 09:37] VITALS: BMI 28.8
== END 2020-12-13 23:59 ==
LOC: IMMUN 10:45
PROVIDERS: PCP Family Medicine; Visit Provider Family Medicine
DX: Z23 Encounter for immunization (principal)
CPT/HCPCS: 0011A; 0012A; 91301

== ENCOUNTER → 2020-12-20 10:23 | Outpatient (CLI) | payer MEDICARE, SELFPAY ==
[2020-06-27 09:37] VITALS: BMI 28.8
[2020-12-20 12:09] LABS: Absolute Lymphocyte Count 3.58 X10^3/uL (0.83-4.51); Absolute Neutrophil Count 3.1 X10^3/uL (2.0-7.7); Basophil# 0.03 X10^3/uL; Basophil% 0.4 % (0-1); Eosinophil# 0.08 X10^3/uL; Eosinophils% 1.1 % (0-5); Hematocrit 40.5 % (37-47); Hemoglobin 13.5 g/dL (12.0-15.0); Lymphocyte # 3.58 X10^3/ul (4.0); Lymphocyte % 48.3 % (19-41); Mean Corp Hgb Conc 33.3 g/dL (32-36); Mean Corpuscular Hgb 31.5 pg (27.0-32.0); Mean Corpuscular Volume 94.4 fL (81-99); Monocyte# 0.58 X10^3/uL; Monocyte% 7.8 % (0-10); NRBC Flagged by Analyzer 0 % (0-5); Neutrophil # 3.12 X10^3/uL (2.7-7.7); Neutrophil % 42.1 % (47-70); Platelet Count 314 K/mm3 (150-450); RBC Distribution Width CV 12.2 % (11.6-14.6); RBC Distribution Width SD 42.4 fl (35.1-43.9); Red Blood Count 4.29 M/mm3 (4.2-5.4); White Blood Count 7.4 K/mm3 (4.4-11.0)
[2020-12-20 12:23] LABS: ALB/GLOB Ratio 1.1 RATIO (0.9-2.4); AST(SGOT) 26 U/L (15-37); Alanine Aminotransfer ALT/SGPT 36 U/L (13-56); Albumin, Serum 3.8 g/dL (3.2-5.0); Alkaline Phosphatase 95 U/L (45-117); Anion Gap 6 (5-15); BUN 12 mg/dL (7-18); BUN/Creat Ratio 14.5 RATIO (10-20); Calcium,Total 9.1 mg/dL (8.5-10.1); Chloride 107 mmol/L (98-107); Creatinine, Serum 0.82 mg/dL (0.55-1.02); EST Glomerular Filtration Rate 71 mL/min (>60); Est Glom Filt Rate - Afr Amer 86 mL/min (>60); Globulin 3.4 g/dL (2.2-4.2); Glucose 97 mg/dL (74-106); Potassium 4.2 mmol/L (3.5-5.1); Protein, Total 7.2 g/dL (6.4-8.2); Sodium Level 140 mmol/L (136-145)
== END ==
PROVIDERS: PCP Family Medicine; Referring Provider Family Medicine; Visit Provider Family Medicine
DX: R19.7 Diarrhea, unspecified (principal)
CPT/HCPCS: 36415; 80053; 85025

== ENCOUNTER → 2020-12-21 11:45 | Outpatient (CLI) | payer MEDICARE, SELFPAY ==
[2020-06-27 09:37] VITALS: BMI 28.8
== END ==
PROVIDERS: PCP Family Medicine; Referring Provider Family Medicine; Visit Provider Family Medicine
DX: R19.7 Diarrhea, unspecified (principal)
CPT/HCPCS: 87493; 87506

== ENCOUNTER 2021-01-08 09:32 | Outpatient (RCR) | payer MEDICARE, OTHER, SELFPAY ==
[2020-06-27 09:37] VITALS: BMI 28.8
[2021-01-08 12:16] LABS: International Normalized Ratio 2.6; Prothrombin Time (Protime)PT. 27.3 SECONDS (11.7-14.9)
== END 2021-01-08 18:00 | disposition home or self-care (01) ==
LOC: MTLAB 09:32
PROVIDERS: Family Provider Family Medicine; PCP Family Medicine; Referring Provider Internal Medicine Cardiovascular Disease; Visit Provider Internal Medicine Cardiovascular Disease
DX: I48.0 Paroxysmal atrial fibrillation (principal); Z79.01 Long term (current) use of anticoagulants
CPT/HCPCS: 36415; 85610

== ENCOUNTER 2021-02-05 14:02 | Outpatient (RCR) | payer MEDICARE, OTHER, SELFPAY ==
[2020-06-27 09:37] VITALS: BMI 28.8
[2021-02-05 15:59] LABS: International Normalized Ratio 1.6
== END 2021-02-05 18:00 | disposition home or self-care (01) ==
LOC: MTLAB 14:02
PROVIDERS: Family Provider Family Medicine; PCP Family Medicine; Referring Provider Internal Medicine Cardiovascular Disease; Visit Provider Internal Medicine Cardiovascular Disease
DX: I48.0 Paroxysmal atrial fibrillation (principal); Z79.01 Long term (current) use of anticoagulants
CPT/HCPCS: 36415; 85610

== ENCOUNTER 2021-02-18 09:40 | Outpatient (RCR) | payer MEDICARE, OTHER, SELFPAY ==
[2020-06-27 09:37] VITALS: BMI 28.8
[2021-02-18 12:29] LABS: International Normalized Ratio 2.9; Prothrombin Time (Protime)PT. 29.2 SECONDS (11.7-14.9)
== END 2021-02-18 18:00 | disposition home or self-care (01) ==
LOC: MTLAB 09:40
PROVIDERS: Family Provider Family Medicine; PCP Family Medicine; Referring Provider Internal Medicine Cardiovascular Disease; Visit Provider Internal Medicine Cardiovascular Disease
DX: I48.0 Paroxysmal atrial fibrillation (principal); Z79.01 Long term (current) use of anticoagulants
CPT/HCPCS: 36415; 85610

== ENCOUNTER → 2021-03-14 17:33 | Outpatient (CLI) | payer MEDICARE, OTHER, SELFPAY ==
[2021-03-08 11:25] VITALS: BMI 30.7
== END ==
PROVIDERS: PCP Family Medicine; Referring Provider Family Medicine; Visit Provider Family Medicine
DX: N39.0 Urinary tract infection, site not specified (principal)
CPT/HCPCS: 87086

== ENCOUNTER 2021-03-20 11:30 | Outpatient (RCR) | payer MEDICARE, OTHER, SELFPAY ==
[2021-03-08 11:25] VITALS: BMI 30.7
[2021-03-20 15:14] LABS: International Normalized Ratio 2.5; Prothrombin Time (Protime)PT. 25.8 SECONDS (11.7-14.9)
== END 2021-03-20 18:00 | disposition home or self-care (01) ==
LOC: MTLAB 11:30
PROVIDERS: Family Provider Family Medicine; PCP Family Medicine; Referring Provider Internal Medicine Cardiovascular Disease; Visit Provider Internal Medicine Cardiovascular Disease
DX: I48.0 Paroxysmal atrial fibrillation (principal); Z79.01 Long term (current) use of anticoagulants
CPT/HCPCS: 36415; 85610

== ENCOUNTER 2021-04-18 09:33 | Outpatient (RCR) | payer MEDICARE, OTHER, SELFPAY ==
[2021-03-08 11:25] VITALS: BMI 30.7
--- NOTE | 2021-04-18 09:39 | RAD_ITS ---
STUDY: X-RAY - PELVIS AND LEFT HIP REASON FOR EXAM: Female, 76 years old. Hip pain. TECHNIQUE: 3 views of the pelvis and hip. COMPARISON: 10/09/2015. FINDINGS: There is a non-specific bowel gas pattern. Phleboliths. Stable mild osteopenia. Mild arthrosis of both sacroiliac joints unchanged. Normal bilateral superior and inferior pubic rami. Normal pubic symphysis. Normal bilateral ischial tuberosities. Mild arthrosis of both hips unchanged from prior study. 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 No acute abnormality. Electronically Signed: Jey Wilson MD at 13:21 EDT , Service support ,
[2021-04-18 12:14] LABS: Prothrombin Time (Protime)PT. 22.2 SECONDS (11.7-14.9)
== END 2021-04-18 18:00 | disposition home or self-care (01) ==
LOC: MTLAB 09:33
PROVIDERS: Family Provider Family Medicine; PCP Family Medicine; Referring Provider Internal Medicine Cardiovascular Disease; Visit Provider Internal Medicine Cardiovascular Disease
DX: I48.0 Paroxysmal atrial fibrillation (principal); Z79.01 Long term (current) use of anticoagulants
CPT/HCPCS: 36415; 73502; 85610

== ENCOUNTER 2021-06-05 09:00 | Outpatient (RCR) | payer MEDICARE, OTHER, SELFPAY ==
[2021-03-08 11:25] VITALS: BMI 30.7
--- NOTE | 2021-04-30 11:33 | HP.PTEVAL_ITS ---
Patient's Visit Information QUYEN LEVI is a 76 year old F referred to Physical Therapy by Dr. Romero García MD with a diagnosis of Left Hip Pain. Date of Evaluation: 04/30/21 Physical Therapist: Ashley Flores DPT - Visit Plan Frequency: 2x /Week Duration: 4 Weeks Plan: Focus on LE and core strength/stabilization- gentle- functional mobility - ambulation and stairs. HEP Given IE: TA Contraction, bridge, hip add, hip abd, hamstring stretch - Subjective Patient reports that she is having problems with her left hip- she has had pain over the past 3-4 years- it would come and go. She had an x-ray a few weeks ago and it has thinned out a little bit. She limps when she first gets up and then after she walks for exercise. But after when she sits down or gets in the car- she has a problem getting back up. She has a lot of problems with the steps. Pain is located in the joint and on the outside. Pain does radiate to the low back some right down the outside of the leg to the mid thigh. Describes the pain as shooting when she gets up immediately- once she gets moving its more of an ache. When she sits in the car she can travel 45 minutes then it starts to ache. Eases: getting up and moving around Best: 0/10 Worst: 4/10. Agg: see above and going up stairs. Sleep: disturbed- feels like she is laying on a bruise- side sleeper. Walks for exercises- an hour- 3 days a week. She does not have a history of back pain but does have pain when she bends forwards to long- more aggravated by the hip. Does have overall stiffness. Goals: learn exercises and good habits to stop it from getting worse- going up/down stairs better. PMHx: HTN, A-fib, Fibromyalgia Meds: see list from Dr. Salinas. - Objective Posture: FH, RS, increased kyphosis- is able to correct with verbal and tactile cues but does not maintain. Gait: when getting up from sitting first steps are antalgic with significant hip drop and decreased stance on the left LE- with ambulation it becomes just slightly antalgic. HR/TR: able. Stairs: asc: recip with significant UE A and hip drop desc: recip but with poor control- reports pain with both. SLS: weight shift but unable to SLS. Transfers: able without A- reports discomfort and vertigo. ROM: Hip flexion: 100 degrees then pain, extn: 10 degrees, IR: neutral then pain, ER: WFL, Knee/ankle: WFL. Strength: Core: fair, Hip: Flexion: 4/5, Abd: 4/5, IR/ER: 3+/5 with pain, Add: 4+/5, Extn: 4-/5 Knee: 4+/5 with discomfort HS testing, Ankle: 5/5. Flex: HS: severe, Gastroc: severe. Special Test: ANTOLIN: positive, Scour: positive - Goals Goal 1:: Patient will be I with HEP and progression Goal Time Frame: 4-6 Weeks Goal 2:: Patient will ambulate >300 feet with a normalized gait pattern Goal Time Frame: 4-6 Weeks Goal 3:: Patient will asc/desc 8 stairs recip with 1 HR and good technique. Goal Time Frame: 4-6 Weeks Goal 4:: Patient will report no more than 2/10 pain for 1 week Goal Time Frame: 4-6 Weeks - Rehabilitation Potential Physical Therapy Diagnosis: Patient presents with hypomobility- she has decreased ROM, core and LE strength/stabilization, flexibility and muscular endurance leading to poor posture and increased pain with ADL's. Rehabilitation Potential: Good - Anticipated Interventions Thank you for the opportunity to evaluate your patient. For Medicare and Medicare HMO plans, please review the plan of care and approve it. It will need to be FAXED BACK to us at [phone] for Medicare purposes. For Medicare only, by signing this I certify the plan of care. Please let me know if there are questions or concerns regarding this plan of care. Physician Signature: Date:
--- NOTE | 2021-05-27 10:46 | HP.PTEVAL2_ITS ---
Patient's Visit Information QUYEN LEVI is a 76 year old F referred to Physical Therapy by Dr. Romero García MD with a diagnosis of Vertigo. Date of Evaluation: 05/27/21 Physical Therapist: Chapin Grayson, SAVANNAT, OCS, CSCS - Visit Plan Frequency: 1-2x /Week Duration: 2-4 Weeks Plan: 1-2x/week as needed for 2-4 weeks for positional treatments adn exercises as needed. Next session will likely need L Joseph and pssibly BD. Pt to bring someone with her in case of poor tolerance. - Subjective Subjective: I have vertigo which never completely went away from [id number]. Dr. Vernon has done Joseph maneuver several times and it helps. She gets it bending over at dryer, quick turning adn turning in bed or lying in bed. Doesn't last long. Gets dizzy multiple times per day. Chavez snot make her nauseous like it used to. Gone within seconds now. Balance feels OK most of time. No falls recently. Staggers at times if dizzy. Sleep is OK as far a dizzyness goes, dizzy when lies down but then it goes away. Not keeping her from doing anything but has to be careful with laundry etc. Can't lie flat to do hip exercises so wants that to be better. - Objective Objective: Posture is slightly kyphoitc T/S and forward head. Cervical aROM rotation without pain 55 B and ext 25 with pain. + L hallpike geoff for up torsional 8 seconds and very dizzy, Treated with Epleya dn dizzy with every mo vement miserably including sitting up, nauseous after adn needing to use bathroom. Balance was iffy adn SBA going to bathroom but after resting a little bit, she walked out I with just slight nausea. My gut feeling is that patient likely has L sided BPPV and need Joseph on that isde however she could not/did not wish to lie down again today due to her nausea. She will schedule again when she has someone who can bring her. - Balance/Special Gait Scores Functional Gait Assessment Score: 27 % Disability: 10.0000 - Goals Goal 1:: abolish vertigo rolling in bed. Goal Time Frame: 4-6 Weeks Goal 2:: Bend to do laundry without dizzyness or hesitation. Goal Time Frame: 4-6 Weeks - Rehabilitation Potential Physical Therapy Diagnosis: BPPV Rehabilitation Potential: Good - Anticipated Interventions Patient/Client Instruction: Educate patient on: Condition, Risk Factors For the Purpose of:: To increase tolerance to activity/condition/position For the Purpose of:: To increase tolerance to activity/condition/position Thank you for the opportunity to evaluate your patient. For Medicare and Medicare HMO plans, please review the plan of care and approve it. It will need to be FAXED BACK to us at [phone] for Medicare purposes. For Medicare only, by signing this I certify the plan of care. Please let me know if there are questions or concerns regarding this plan of care. Physician Signature: Date:
--- NOTE | 2021-06-05 09:21 | HP.PTDCSUM ---
It has been my pleasure to treat QUYEN LEVI referred by Dr. Romero García MD, with the diagnosis of Left Hip Pain for a total of 7 visit(s). Discharge Date: 06/05/21 Please see the following information for a summary of their discharge status. Subjective: Hip hurts at night if lie on it and going up steps. but tolerable and as good as it will get. Doing exercises at home Feels like she is getting stronger. No f/u with Dr. García on hip anytime soon. L hip Pain Intensity (Out of 10): 0 L LE Pain Intensity (Out of 10): 0 % Improvement: 60 Objective/Function: 110 AROM L hip and 10 ext , 48 ext ortation with just some slight discomfort. Walking normal without antalgia today. Steps reciprocal with one rail up and down and only slight discomfort trasniently. Goal 1:: Patient will be I with HEP and progression Goal Progress: Goal Met Goal 2:: Patient will ambulate >300 feet with a normalized gait pattern Goal Progress: Goal Met Goal 3:: Patient will asc/desc 8 stairs recip with 1 HR and good technique. Goal Progress: Goal Met Goal 4:: Patient will report no more than 2/10 pain for 1 week Goal Progress: Goal Met Plan: d/c to HEP Discharge Comments: Doing well and will c ontinue to manage hip with stretching and strengthening at home adn activity modfiication. If there are questions or concerns regarding this patient's physical therapy, please feel free to call me at [phone]. Thank you for the referral of this patient. Sincerely, Chapin Grayson, DPT, OCS, CSCS Balance/Gait/Functional tests - Balance/Special Test Scores Dizziness Score: 28 Lower Extremity Functional Score: 71
--- NOTE | 2021-06-05 09:24 | HP.PTDCS(2) ---
It has been my pleasure to treat QUYEN LEVI referred by Dr. Romero García MD, with the diagnosis of Vertigo for a total of 3 visit(s). Discharge Date: 06/05/21 Please see the following information for a summary of their discharge status. Subjective: No dizzyness lately since last appointment. I can do everything iI need to do including roll in bed and lie flat without a problem % Improvement: 100 Objective/Function/Assessment: - B Hallpike geoff. Balance is good walkign without problems and steps reciprocal with one rail. Patient Goals: Other Other Goals: rid dizzyness Goal 1:: abolish vertigo rolling in bed. Goal Progress: Goal Met Goal 2:: Bend to do laundry without dizzyness or hesitation. Goal Progress: Goal Met Plan: d/c Discharge Comments: Dizzyness abolished and was BPPV If there are questions or concerns regarding this patient's physical therapy, please feel free to call me at [phone]. Thank you for the referral of this patient. Sincerely, Chapin Grayson, DPT, OCS, CSCS Balance/Special Test Scores - Balance/Special Test Scores Functional Gait Assessment Score: 27 % Disability: 10.0000
== END 2021-06-05 09:32 | disposition home or self-care (01) ==
LOC: PT 09:00
PROVIDERS: PCP Family Medicine; Referring Provider Family Medicine; Visit Provider Family Medicine
DX: M25.552 Pain in left hip (principal); M25.551 Pain in right hip; M19.90 Unspecified osteoarthritis, unspecified site
CPT/HCPCS: 97110; 97161; 97162; 97164; 97530

== ENCOUNTER 2021-06-05 09:42 | Outpatient (RCR) | payer MEDICARE, OTHER, SELFPAY ==
[2021-03-08 11:25] VITALS: BMI 30.7
[2021-06-05 12:42] LABS: International Normalized Ratio 2.8; Prothrombin Time (Protime)PT. 28.5 SECONDS (11.7-14.9)
== END 2021-06-05 18:00 | disposition home or self-care (01) ==
LOC: MTLAB 09:42
PROVIDERS: Family Provider Family Medicine; PCP Family Medicine; Referring Provider Internal Medicine Cardiovascular Disease; Visit Provider Internal Medicine Cardiovascular Disease
DX: I48.0 Paroxysmal atrial fibrillation (principal); Z79.01 Long term (current) use of anticoagulants
CPT/HCPCS: 36415; 85610

== ENCOUNTER → 2021-06-10 09:08 | Outpatient (CLI) | payer MEDICARE, OTHER, SELFPAY ==
[2021-06-10 10:45] LABS: AST(SGOT) 33 U/L (15-37); Alanine Aminotransfer ALT/SGPT 40 U/L (13-56); Albumin, Serum 3.7 g/dL (3.2-5.0); Alkaline Phosphatase 93 U/L (45-117); Bilirubin, Direct 0.14 mg/dL (0.00-0.30); Cholesterol 218 mg/dL (200); Globulin 3.7 g/dL (2.2-4.2); High Density Lipoprotein 50 mg/dL; Protein, Total 7.4 g/dL (6.4-8.2); Triglycerides 297 mg/dL; Very Low Density Lipoprotein 59 mg/dL (5-40)
== END ==
PROVIDERS: PCP Family Medicine; Referring Provider Internal Medicine Cardiovascular Disease; Visit Provider Internal Medicine Cardiovascular Disease
DX: E78.00 Pure hypercholesterolemia, unspecified (principal); E78.5 Hyperlipidemia, unspecified
CPT/HCPCS: 80061; 80076

== ENCOUNTER → 2021-06-25 16:55 | Outpatient (CLI) | payer MEDICARE, OTHER, SELFPAY ==
[2021-06-25 17:43] LABS: Absolute Lymphocyte Count 4.29 X10^3/uL (0.83-4.51); Basophil# 0.03 X10^3/uL; Basophil% 0.3 % (0-1); Eosinophil# 0.07 X10^3/uL; Eosinophils% 0.7 % (0-5); Hematocrit 37.4 % (37-47); Hemoglobin 12.7 g/dL (12.0-15.0); Lymphocyte # 4.29 X10^3/ul (0.83-4.51); Lymphocyte % 42.2 % (19-41); Mean Corpuscular Hgb 31.4 pg (27.0-32.0); Mean Corpuscular Volume 92.6 fL (81-99); Mean Platelet Vol. 10.8 fl (6.2-12.0); Monocyte# 0.78 X10^3/uL; Monocyte% 7.7 % (0-10); NRBC Flagged by Analyzer 0 % (0-5); Neutrophil # 4.97 X10^3/uL (2.7-7.7); Neutrophil % 48.9 % (47-70); Platelet Count 326 K/mm3 (150-450); RBC Distribution Width CV 12.3 % (11.6-14.6); RBC Distribution Width SD 42.4 fl (35.1-43.9); Red Blood Count 4.04 M/mm3 (4.2-5.4); White Blood Count 10.2 K/mm3 (4.4-11.0)
[2021-06-25 18:29] LABS: ALB/GLOB Ratio 1.1 RATIO (0.9-2.4); AST(SGOT) 30 U/L (15-37); Alanine Aminotransfer ALT/SGPT 40 U/L (13-56); Albumin, Serum 3.9 g/dL (3.2-5.0); Alkaline Phosphatase 99 U/L (45-117); Anion Gap 7 (5-15); BUN 13 mg/dL (7-18); BUN/Creat Ratio 15.9 RATIO (10-20); Calcium,Total 9.1 mg/dL (8.5-10.1); Chloride 106 mmol/L (98-107); Creatinine, Serum 0.82 mg/dL (0.55-1.02); EST Glomerular Filtration Rate 72 mL/min (>60); Est Glom Filt Rate - Afr Amer 87 mL/min (>60); Globulin 3.7 g/dL (2.2-4.2); Glucose 99 mg/dL (74-106); Lipase 78 U/L (73-393); Protein, Total 7.6 g/dL (6.4-8.2); Sodium Level 137 mmol/L (136-145)
== END ==
PROVIDERS: PCP Family Medicine; Visit Provider Family Medicine
DX: R10.9 Unspecified abdominal pain (principal)
CPT/HCPCS: 36415; 80053; 83690; 85025

== ENCOUNTER → 2021-07-03 08:26 | Outpatient (CLI) | payer MEDICARE, OTHER, SELFPAY ==
--- NOTE | 2021-07-03 08:28 | CT_ITS ---
STUDY: CT ABDOMEN AND PELVIS WITH CONTRAST REASON FOR EXAM: Female, 76 years old. Abdominal pain worse on the left side. RADIATION DOSAGE (If Supplied By Facility): CTDIvol = ( 16.53 ) mGy, DLP = ( 930.20 ) mGycm TECHNIQUE: Transaxial images were obtained from the dome of the diaphragm to the symphysis pubis without oral contrast. Oral and amp;amp; IV Readi-CAT and amp;amp; 100mL Isovue-300 was administered. Sagittal and coronal images were reconstructed. Individualized dose optimization techniques were used for this CT. COMPARISON: None. FINDINGS: The visualized lung bases are unremarkable. The visualized portions of the heart are within normal limits. There is decreased attenuation of the liver consistent with steatosis. There is a 1.1 cm x 2.9 cm cyst in the anterior aspect of the liver superiorly. There is also evidence of a lobular cyst in the region of the caudate lobe of the liver measuring 3.4 cm x 2.8 cm. There is also evidence of a 1.6 cm cyst in the medial edge of the left lobe of liver as well as a 1 some either cyst along the inferior medial aspect of the right lobe of the liver. Normal gallbladder and extrahepatic biliary system. Normal spleen. Normal pancreas. Normal bilateral adrenal glands. Normal right kidney. Normal left kidney. There is a small hiatal hernia. Normal small intestine. Normal colon. The patient is status post appendectomy. There is diffuse atherosclerotic calcification of the abdominal aorta, without a demonstrated aneurysm. Normal inferior vena cava. Normal retroperitoneum. Normal urinary bladder. There is absence of the uterus consistent with a prior hysterectomy. Normal abdominal wall. Disc space narrowing and subchondral sclerosis at the L4-L5 level. CT/Abdomen/Pelvis WITH Contrast IMPRESSION: Diffuse fatty infiltration of the liver. Hepatic cysts. Electronically Signed: Vernon Pulliam MD at 15:40 EDT , Service support ,
== END ==
PROVIDERS: PCP Family Medicine; Referring Provider Family Medicine; Visit Provider Family Medicine
DX: R10.9 Unspecified abdominal pain (principal)
CPT/HCPCS: 74177; Q9967

== ENCOUNTER 2021-08-16 10:37 | Outpatient (RCR) | payer MEDICARE, OTHER, SELFPAY ==
[2021-07-19 12:30] LABS: International Normalized Ratio 2.6; Prothrombin Time (Protime)PT. 27.4 SECONDS (11.7-14.9)
[2021-08-14 12:14] LABS: International Normalized Ratio 2.4; Prothrombin Time (Protime)PT. 25.5 SECONDS (11.7-14.9)
[2021-08-16 12:10] LABS: International Normalized Ratio 2.2; Prothrombin Time (Protime)PT. 23.4 SECONDS (11.7-14.9)
== END 2021-08-18 18:00 | disposition home or self-care (01) ==
LOC: MTLAB 10:37
PROVIDERS: PCP Family Medicine; Referring Provider Internal Medicine Cardiovascular Disease; Visit Provider Internal Medicine Cardiovascular Disease
DX: I48.0 Paroxysmal atrial fibrillation (principal); I48.92 Unspecified atrial flutter; Z79.01 Long term (current) use of anticoagulants
CPT/HCPCS: 36415; 85610

== ENCOUNTER → 2021-08-21 07:21 | Outpatient (CLI) | payer MEDICARE, OTHER, SELFPAY ==
--- NOTE | 2021-08-21 07:25 | BI_ITS ---
MAMMOGRAPHY - BILATERAL SCREENING REASON FOR EXAM: Female, 76 years old. Routine annual screening examination. PERTINENT HISTORY: Non-contributory. TECHNIQUE: Digital bilateral breast amanda (3D mammographic acquisition) in the CC and MLO projections. 2-D mediolateral oblique (MLO) and craniocaudad (CC) views of both breasts were obtained. CAD: Full Field Digital Mammography with Computer Added Detection was performed. COMPARISON: Comparison is made with prior study 08/14/2020 and 07/25/2019. FINDINGS: Breast Composition: The breasts are almost entirely fatty. There are no dominant masses or suspicious calcifications. No other significant abnormalities are identified. There has been no significant change since the prior study. BI/SCRN MAMM (CAD)W/AMANDA BILAT IMPRESSION: Stable bilateral screening mammogram. Yearly follow-up mammogram recommended. (A) ASSESSMENT CATEGORY: BIRADS Category 1: Negative. A letter regarding these results will be sent to the patient by the facility within 30 days. Approximately 10% of breast cancers are not detected by mammography. A normal mammogram should not delay biopsy of a clinically suspicious abnormality. [id number] Electronically Signed: Vernon Pulliam MD at 9:36 EDT , Service support ,
== END ==
PROVIDERS: PCP Family Medicine; Referring Provider Family Medicine; Visit Provider Family Medicine
DX: Z12.31 Encounter for screening mammogram for malignant neoplasm of breast (principal); Z79.01 Long term (current) use of anticoagulants; I48.0 Paroxysmal atrial fibrillation; I48.92 Unspecified atrial flutter
CPT/HCPCS: 36415; 77063; 77067; 85610

== ENCOUNTER 2021-08-21 08:05 | Outpatient (RCR) | payer MEDICARE, OTHER, SELFPAY ==
[2021-08-21 10:23] LABS: International Normalized Ratio 2.2; Prothrombin Time (Protime)PT. 23.6 SECONDS (11.7-14.9)
== END 2021-09-17 18:00 | disposition home or self-care (01) ==
LOC: MTLAB 08:05
PROVIDERS: PCP Family Medicine; Referring Provider Internal Medicine Cardiovascular Disease; Visit Provider Internal Medicine Cardiovascular Disease
DX: I48.0 Paroxysmal atrial fibrillation (principal); I48.92 Unspecified atrial flutter; Z79.01 Long term (current) use of anticoagulants
CPT/HCPCS: 36415; 85610

== ENCOUNTER 2021-09-09 08:22 | Outpatient (RCR) | payer MEDICARE, OTHER, SELFPAY ==
[2021-06-19 01:22] VITALS: BMI 30.7
[2021-08-26 15:19] LABS: International Normalized Ratio 1.6; Prothrombin Time (Protime)PT. 18.6 SECONDS (11.7-14.9)
[2021-09-09 10:16] LABS: International Normalized Ratio 1.4; Prothrombin Time (Protime)PT. 16.8 SECONDS (11.7-14.9)
== END 2021-09-17 18:00 | disposition home or self-care (01) ==
LOC: MTLAB 08:22
PROVIDERS: Family Provider Family Medicine; PCP Family Medicine; Referring Provider Internal Medicine Cardiovascular Disease; Visit Provider Internal Medicine Cardiovascular Disease
DX: I48.0 Paroxysmal atrial fibrillation (principal); Z79.01 Long term (current) use of anticoagulants
CPT/HCPCS: 36415; 85610

== ENCOUNTER 2021-09-26 15:11 | Outpatient (RCR) | payer MEDICARE, OTHER, SELFPAY ==
[2021-09-18 04:08] VITALS: BMI 30.7
[2021-09-26 15:25] LABS: Prothrombin Time Fingerstick 32.9 SEC (11.9-14.4)
== END 2021-10-19 18:00 | disposition home or self-care (01) ==
LOC: MTLAB 15:11
PROVIDERS: Family Provider Family Medicine; PCP Family Medicine; Referring Provider Internal Medicine Cardiovascular Disease; Visit Provider Internal Medicine Cardiovascular Disease
DX: I48.0 Paroxysmal atrial fibrillation (principal); Z79.01 Long term (current) use of anticoagulants
CPT/HCPCS: 36416; 85610

== ENCOUNTER 2021-11-18 11:41 | Outpatient (RCR) | payer MEDICARE, OTHER, SELFPAY ==
[2021-10-20 18:19] VITALS: BMI 30.7
[2021-10-25 15:50] LABS: International Normalized Ratio 1.7; Prothrombin Time (Protime)PT. 19.5 SECONDS (11.7-14.9)
[2021-11-18 15:39] LABS: International Normalized Ratio 1.6; Prothrombin Time (Protime)PT. 18.4 SECONDS (11.7-14.9)
== END 2021-11-18 18:00 | disposition home or self-care (01) ==
LOC: MTLAB 11:41
PROVIDERS: Family Provider Family Medicine; PCP Family Medicine; Referring Provider Internal Medicine Cardiovascular Disease; Visit Provider Internal Medicine Cardiovascular Disease
DX: I48.0 Paroxysmal atrial fibrillation (principal); Z79.01 Long term (current) use of anticoagulants
CPT/HCPCS: 36415; 85610

== ENCOUNTER 2021-12-04 10:43 | Outpatient (RCR) | payer MEDICARE, OTHER, SELFPAY ==
[2021-11-19 01:44] VITALS: BMI 30.7
[2021-12-04 13:02] LABS: International Normalized Ratio 2.2; Prothrombin Time (Protime)PT. 23.3 SECONDS (11.7-14.9)
== END 2021-12-04 23:59 | disposition home or self-care (01) ==
LOC: MTLAB 10:43
PROVIDERS: Family Provider Family Medicine; PCP Family Medicine; Referring Provider Internal Medicine Cardiovascular Disease; Visit Provider Internal Medicine Cardiovascular Disease
DX: I48.0 Paroxysmal atrial fibrillation (principal); Z79.01 Long term (current) use of anticoagulants
CPT/HCPCS: 36415; 85610

== ENCOUNTER 2022-01-13 09:10 | Outpatient (RCR) | payer MEDICARE, OTHER, SELFPAY ==
[2021-12-17 10:19] VITALS: BMI 30.7
[2022-01-13 10:13] LABS: International Normalized Ratio 1.8; Prothrombin Time (Protime)PT. 19.7 SECONDS (11.7-14.9)
[2022-01-13 10:42] LABS: AST(SGOT) 28 U/L (15-37); Alanine Aminotransfer ALT/SGPT 47 U/L (13-56); Alkaline Phosphatase 101 U/L (45-117); Bilirubin, Direct 0.15 mg/dL (0.00-0.30); Cholesterol 233 mg/dL (200); Globulin 3.6 g/dL (2.2-4.2); High Density Lipoprotein 64 mg/dL; Protein, Total 7.6 g/dL (6.4-8.2); Triglycerides 171 mg/dL; Very Low Density Lipoprotein 34 mg/dL (5-40)
== END 2022-01-16 18:00 | disposition home or self-care (01) ==
LOC: MTLAB 09:10
PROVIDERS: Family Provider Family Medicine; PCP Family Medicine; Referring Provider Internal Medicine Cardiovascular Disease; Visit Provider Internal Medicine Cardiovascular Disease
DX: I48.0 Paroxysmal atrial fibrillation (principal); Z79.01 Long term (current) use of anticoagulants; E78.00 Pure hypercholesterolemia, unspecified
CPT/HCPCS: 36415; 80061; 80076; 85610

== ENCOUNTER 2022-01-22 09:55 | Outpatient (CLI) | payer MEDICARE, OTHER, SELFPAY ==
[2022-01-22 12:27] LABS: Hematocrit 37.9 % (37-47); Hemoglobin 12.4 g/dL (12.0-15.0); Mean Corp Hgb Conc 32.7 g/dL (32-36); Mean Corpuscular Hgb 31.3 pg (27.0-32.0); Mean Corpuscular Volume 95.7 fL (81-99); Mean Platelet Vol. 10.8 fl (6.2-12.0); Platelet Count 289 K/mm3 (150-450); RBC Distribution Width CV 12.5 % (11.6-14.6); RBC Distribution Width SD 43.8 fl (35.1-43.9); Red Blood Count 3.96 M/mm3 (4.2-5.4); White Blood Count 8.4 K/mm3 (4.4-11.0)
[2022-01-22 12:33] LABS: ALB/GLOB Ratio 1.1 RATIO (0.9-2.4); AST(SGOT) 31 U/L (15-37); Alanine Aminotransfer ALT/SGPT 59 U/L (13-56); Albumin, Serum 3.7 g/dL (3.2-5.0); Alkaline Phosphatase 104 U/L (45-117); Anion Gap 5 (5-15); BUN 18 mg/dL (7-18); BUN/Creat Ratio 22.5 RATIO (10-20); Chloride 105 mmol/L (98-107); EST Glomerular Filtration Rate 74 mL/min (>60); Est Glom Filt Rate - Afr Amer 89 mL/min (>60); Globulin 3.5 g/dL (2.2-4.2); Glucose 96 mg/dL (74-106); Potassium 4.2 mmol/L (3.5-5.1); Protein, Total 7.2 g/dL (6.4-8.2); Sodium Level 136 mmol/L (136-145)
[2022-01-22 12:35] LABS: Vitamin B12 538 pg/mL (211-911); Vitamin D,25 Hydroxy 44.8 ng/mL
== END 2022-01-22 23:59 | disposition home or self-care (01) ==
LOC: MFPLAB 10:03
PROVIDERS: PCP Family Medicine; Referring Provider Family Medicine; Visit Provider Nurse Practitioner Family
DX: R53.1 Weakness (principal); M85.80 Other specified disorders of bone density and structure, unspecified site
CPT/HCPCS: 36415; 80053; 82306; 82607; 85027

== ENCOUNTER 2022-02-03 10:51 | Outpatient (CLI) | payer MEDICARE, OTHER, SELFPAY ==
--- NOTE | 2022-02-03 10:55 | RAD_ITS ---
INDICATION: s/p injury; rule out fracture. EXAMINATION/TECHNIQUE: X-RAY - RIGHT XR Tibia/Fibula 2 Views 3 VIEWS COMPARISON: None. FINDINGS: SOFT TISSUES: No soft tissue swelling or gas. No radiopaque foreign body. BONES/JOINTS: No acute fracture or subluxation.. Normal alignment. Preservation of the joint space.. No sclerotic or destructive changes observed. RAD/Tibia & Fibula 2 Views IMPRESSION: No evidence of acute osseous abnormality. Electronically Signed: Kvng Grady MD at 12:25 EDT ,
== END 2022-02-03 23:59 | disposition home or self-care (01) ==
LOC: MTRAD 10:53
PROVIDERS: PCP Family Medicine; Referring Provider Nurse Practitioner Family; Visit Provider Nurse Practitioner Family
DX: M79.604 Pain in right leg (principal)
CPT/HCPCS: 73590

== ENCOUNTER 2022-02-12 12:44 | Outpatient (RCR) | payer MEDICARE, OTHER, SELFPAY ==
[2022-01-17 03:00] VITALS: BMI 30.7
[2022-01-21 15:20] LABS: International Normalized Ratio 2.6; Prothrombin Time (Protime)PT. 27.4 SECONDS (11.7-14.9)
[2022-02-12 15:54] LABS: International Normalized Ratio 2.5; Prothrombin Time (Protime)PT. 26.4 SECONDS (11.7-14.9)
== END 2022-02-12 18:00 | disposition home or self-care (01) ==
LOC: MTLAB 12:44
PROVIDERS: Family Provider Family Medicine; PCP Family Medicine; Referring Provider Internal Medicine Cardiovascular Disease; Visit Provider Internal Medicine Cardiovascular Disease
DX: I48.0 Paroxysmal atrial fibrillation (principal); Z79.01 Long term (current) use of anticoagulants
CPT/HCPCS: 36415; 85610

== ENCOUNTER 2022-03-25 15:12 | Outpatient (RCR) | payer MEDICARE, OTHER, SELFPAY ==
[2022-02-16 05:25] VITALS: BMI 30.7
[2022-03-25 17:53] LABS: International Normalized Ratio 2.5
== END 2022-04-17 16:00 | disposition home or self-care (01) ==
LOC: MTLAB 15:12
PROVIDERS: Family Provider Family Medicine; PCP Family Medicine; Referring Provider Internal Medicine Cardiovascular Disease; Visit Provider Internal Medicine Cardiovascular Disease
DX: I48.0 Paroxysmal atrial fibrillation (principal); Z79.01 Long term (current) use of anticoagulants
CPT/HCPCS: 36415; 85610

== ENCOUNTER 2022-04-21 20:16 | Observation (INO) | payer MEDICARE, OTHER, SELFPAY ==
[2022-04-21 20:18] VITALS: BP 171/127; PULSE 65; RESP 16; TEMP 35.8; O2SAT 98; BMI 29.2
--- NOTE | 2022-04-21 20:30 | RAD_ITS ---
EXAM: XR CHEST, 1 VIEW CLINICAL INDICATION: chest pain TECHNIQUE: Frontal view of the chest. This report was created using Grid20/20 report generation technology. COMPARISON: 07/30/2017. FINDINGS: LUNGS AND PLEURAL SPACES: Couple of small ovoid nodular opacities projecting over the right upper lobe could represent old granulomatous disease. No consolidation or edema. No pneumothorax. No effusion. HEART: Cardiac silhouette not enlarged. MEDIASTINUM: Central airways and mediastinal contour are unremarkable. Atherosclerotic calcifications of the nonenlarged thoracic aortic arch. BONES/JOINTS: Degenerative changes of the spine and acromioclavicular joints. SOFT TISSUES: Unremarkable. RAD/Chest 1 View (Portable) IMPRESSION: No acute disease. Electronically Signed: Humberto Hernandez MD at 21:17 EDT ,
--- NOTE | 2022-04-21 20:42 | EKG12_ITS ---
Test Reason : CP Blood Pressure : / mmHG Vent. Rate : 064 BPM Atrial Rate : 064 BPM P-R Int : 204 ms QRS Dur : 108 ms QT Int : 430 ms P-R-T Axes : 053 051 051 degrees QTc Int : 443 ms Normal sinus rhythm Nonspecific T wave abnormality Confirmed by MELISSA FRANCISCO, MAHAD ([id number]), assignment desk editor GÓMEZ BARAHONA ([id number]) on 04/23/2022 8:17:56 AM Referred By: SLAVA Confirmed By:MAHAD TORRES MD
--- NOTE | 2022-04-21 20:43 | EX.ED.DYSGE1 ---
HPI History of Present Illness Chief Complaint: General Illness Detail of Chief Complaint: Chest pain that started around 3 PM Informant: patient Narrative Narrative: Patient presents the emergency department with pain in her back and chest that started around 3 PM. Patient states that she had gotten up to put something in the kitchen when she had a discomfort between her shoulder blades that radiated into her shoulders and down her arms and into her neck. Patient felt sweaty and nauseated afterwards. She felt somewhat short of breath. She never had discomfort like that before. She still complains of some heaviness in her arms. Patient denies recent travel or surgery. She has no heart history. She had a heart cath in that was unremarkable. Patient has history of A. fib and is currently on Coumadin. 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 Neuropathy Osteoarthritis Osteoporosis Paroxysmal atrial fibrillation Paroxysmal atrial tachycardia URI (upper respiratory infection) Home Medications omeprazole 20 mg capsule,delayed release 20 mg PO QDAY 03/31/18 [History Last Taken Unknown] multivit with min-folic acid-lutein 400 mcg-250 mcg chewable tablet (Centrum Silver) 1 tab PO .COMPLEX 04/02/18 [History Last Taken Unknown] loratadine 10 mg tablet (Claritin) 10 mg PO QDAY PRN Allergy Symptoms 01/27/19 [History Last Taken Unknown] aspirin 81 mg tablet,delayed release (Adult Low Dose Aspirin) 81 mg PO DAILY 02/24/20 [History Last Taken Unknown] atorvastatin 10 mg tablet 10 mg PO DAILY #90 tabs 04/23/21 [Rx Last Taken Unknown] warfarin 3 mg tablet 3 mg PO .COMPLEX #90 tabs 09/06/21 [Rx Last Taken Unknown] cholecalciferol (vitamin D3) 25 mcg (1,000 unit) capsule 1,000 unit PO BID 09/16/21 [History Last Taken Unknown] flecainide 50 mg tablet 50 mg PO Q12H #180 tabs 09/16/21 [Rx Last Taken Unknown] lisinopril 10 mg tablet 10 mg PO QDAY #90 tabs 12/02/21 [Rx Last Taken Unknown] metoprolol succinate 50 mg tablet,extended release 24 hr 50 mg PO BID #180 tabs 01/16/22 [Rx Last Taken Unknown] duloxetine 20 mg capsule,delayed release 1 cap PO DAILY 04/21/22 [History Last Taken Unknown] Allergy/AdvReac Type Severity Reaction Status Date / Time acetaminophen [From Vicodin] AdvReac Severe Unknown Verified 04/21/22 20:18 atorvastatin [From Lipitor] AdvReac Severe Muscle Verified 04/21/22 20:18 spasms codeine AdvReac Severe Unknown Verified 04/21/22 20:18 fenofibrate [From Tricor] AdvReac Severe Joint pain Verified 04/21/22 20:18 fluvastatin [From Lescol] AdvReac Severe Unknown Verified 04/21/22 20:18 hydrocodone [From Vicodin] AdvReac Severe Unknown Verified 04/21/22 20:18 lovastatin [From Mevacor] AdvReac Severe Muscle Verified 04/21/22 20:18 spasms prednisone AdvReac Severe Unknown Verified 04/21/22 20:18 pravastatin AdvReac Intermediate myalgias Verified 04/21/22 20:18 simvastatin AdvReac Intermediate didn't Verified 04/21/22 20:18 help cholesterol, some myalgias also Family History Mother , age 51 Heart disease Myocardial infarction Father Diabetes Brother Diabetes Sister Diabetes Sister Diabetes Sister Diabetes Sister Diabetes Other Hypertension Surgical History History of appendectomy History of carpal tunnel release History of cataract extraction (2018) History of hysterectomy History of left heart catheterization (07/02/09) History of tonsillectomy Social History Smoking Status: Never smoker alcohol intake: never substance use type: does not use caffeine: No ROS ROS ED Review of Systems ROS Unobtainable: other Constitutional Constitutional ED: Reports lethargy; Denies chills, fever(s), sweats or weight loss Eyes Eyes: Denies blurry vision, change in vision or diplopia ENT ENT ED: Denies rhinorrhea or sore throat Cardiovascular Cardiovascular: Reports chest pain and racing heartbeat; Denies orthopnea Respiratory/Chest Respiratory/Chest: Reports dyspnea and dyspnea on exertion; Denies cough, orthopnea or sputum Gastrointestinal Gastrointestinal: Denies abdominal pain, diarrhea, nausea or vomiting Genitourinary Genitourinary ED: Denies dysuria, hematuria or urinary frequency Musculoskeletal Musculoskeletal: Reports back pain; Denies arthralgias, myalgias or neck pain Integumentary Denies abscess, Abrasions or rash Neurologic Neurologic: Denies headache(s) or weakness Psychiatric Psychiatric: Denies anxiety, depression or suicidal thoughts Endocrine Endocrinology: Denies polydipsia, polyphagia or polyuria Hematologic/Lymphatic Hematologic/Lymphatic: Denies easy bleeding, easy bruising or lymphadenopathy Allergic/Immunologic Allergic/Immunologic ED: Denies mouth swelling, tongue swelling or urticaria EXAM Physical Exam Const Vital Signs: 04/21/22 20:18 04/21/22 22:29 Temperature 96.5 F L Temperature Source Temporal Pulse Rate 65 64 Respiratory Rate 16 12 Blood Pressure 171/127 H 158/77 H Blood Pressure Mean 141 104 Pulse Ox 98 98 Oxygen Delivery Method Room Air Room Air MDM MDM MDM Narrative Medical decision making narrative: IV line established on arrival. Patient was given morphine and Zofran and had minimal relief with that. She was given Dilaudid half milligram IV. Lab work-up showed a normal troponin as well as chemistries. H&H was normal. INR was 2.7. CTA of the chest was obtained to rule out dissection which was negative for PE or dissection. At this point etiology of her pain is unclear although I am concerned about ACS. Case discussed with hospitalist will evaluate patient for admission. Lab Data Attestation: I reviewed the patient's lab results. Labs: Laboratory Results - last 24 hr 04/21/22 04/21/22 04/21/22 20:45 20:45 20:45 WBC 10.9 RBC 3.88 L Hgb 12.6 Hct 37.6 MCV 96.9 MCH 32.5 H MCHC 33.5 RDW Std Deviation 44.3 H RDW Coeff of Nathaniel 12.6 Plt Count 295 MPV 10.4 Immature Gran % (Auto) 0.300 Neut % (Auto) 43.9 L Lymph % (Auto) 46.5 H [place] % (Auto) 8.1 Eos % (Auto) 0.9 Baso % (Auto) 0.3 Absolute Neuts (auto) 4.8 Absolute Lymphs (auto) 5.04 H Nucleated RBC % 0 Differential Comment SCANNED PT 28.6 H INR 2.7 Sodium 136 Potassium 3.8 Chloride 102 Carbon Dioxide 25.0 Anion Gap 9 BUN 14 Creatinine 0.88 Estim Creat Clear Calc 43.58 Est GFR (MDRD) Af Amer 79 Est GFR (MDRD) Non-Af 66 BUN/Creatinine Ratio 15.8 Glucose 119 H Calcium 9.2 Total Bilirubin Direct Bilirubin AST ALT Alkaline Phosphatase Troponin I High Sens 4 Total Protein Albumin Globulin 04/21/22 20:45 WBC RBC Hgb Hct MCV MCH MCHC RDW Std Deviation RDW Coeff of Nathaniel Plt Count MPV Immature Gran % (Auto) Neut % (Auto) Lymph % (Auto) [place] % (Auto) Eos % (Auto) Baso % (Auto) Absolute Neuts (auto) Absolute Lymphs (auto) Nucleated RBC % Differential Comment PT INR Sodium Potassium Chloride Carbon Dioxide Anion Gap BUN Creatinine Estim Creat Clear Calc Est GFR (MDRD) Af Amer Est GFR (MDRD) Non-Af BUN/Creatinine Ratio Glucose Calcium Total Bilirubin 0.30 Direct Bilirubin 0.14 AST 34 ALT 39 Alkaline Phosphatase 104 Troponin I High Sens Total Protein 7.4 Albumin 3.9 Globulin 3.5 Radiography Chest X-Ray - ED: 1 View Diagnostic Testing: Clinical Impression(s) from Imaging Studies Chest X-Ray 04/21/22 20:30 IMPRESSION: No acute disease. Electronically Signed: Humberto Hernadnez MD at 21:17 EDT , Chest CTA 04/21/22 21:04 IMPRESSION: 1. No PE or other acute disease. 2. Indeterminate 7 mm pulmonary nodule at the left upper lobe with apparent pleural retraction which increases suspicion. Refer to Pulmonology for further management. Electronically Signed: Humberto Hernandez MD at 22:39 EDT , ADDENDUM: 04/21/22 2248 IMPRESSION: 1. No PE or other acute disease. 2. Indeterminate 7 mm pulmonary nodule at the left upper lobe with apparent pleural retraction which increases suspicion. Refer to Pulmonology for further management. N.B. : CRISTOBAL Tejada, confirmed on 04/21/2022 22:41:08 (ET) that the healthcare facility has received the radiology report. Electronically Signed: Humberto Hernandez MD at 22:39 EDT , 1 view chest x-ray obtained interpreted by myself as no acute disease process. Radiology in agreement. EKG Initial EKG: Attestation: I personally reviewed and interpreted this EKG as follows: Comments: Sinus rhythm with a rate of 64 bpm with no acute ST segment changes. Second EKG obtained for continued pain in this to showed a sinus rhythm with a rate of 64 bpm with a first-degree AV block otherwise unremarkable. Discharge Plan Dx/Rx/DC Orders Clinical Impression: Chest pain Disposition Disposition: Acute Care Hospital [facility]
[2022-04-21 20:54] LABS: Absolute Lymphocyte Count 5.04 X10^3/uL (0.83-4.51); Absolute Neutrophil Count 4.8 X10^3/uL (2.0-7.7); Basophil# 0.03 X10^3/uL; Basophil% 0.3 % (0-1); Eosinophils% 0.9 % (0-5); Hematocrit 37.6 % (37-47); Hemoglobin 12.6 g/dL (12.0-15.0); Lymphocyte # 5.04 X10^3/ul (0.83-4.51); Lymphocyte % 46.5 % (19-41); Mean Corp Hgb Conc 33.5 g/dL (32-36); Mean Corpuscular Hgb 32.5 pg (27.0-32.0); Mean Corpuscular Volume 96.9 fL (81-99); Mean Platelet Vol. 10.4 fl (6.2-12.0); Monocyte# 0.88 X10^3/uL; Monocyte% 8.1 % (0-10); NRBC Flagged by Analyzer 0 % (0-5); Neutrophil # 4.77 X10^3/uL (2.7-7.7); Neutrophil % 43.9 % (47-70); POSITIVE DIFFERENTIAL YES; Platelet Count 295 K/mm3 (150-450); RBC Distribution Width CV 12.6 % (11.6-14.6); RBC Distribution Width SD 44.3 fl (35.1-43.9); Red Blood Count 3.88 M/mm3 (4.2-5.4); White Blood Count 10.9 K/mm3 (4.4-11.0)
[2022-04-21 20:55] LABS: Differential Indicated SCAN CRITERIA MET
[2022-04-21 21:01] LABS: International Normalized Ratio 2.7; Prothrombin Time (Protime)PT. 28.6 SECONDS (11.7-14.9)
--- NOTE | 2022-04-21 21:04 | CT_ITS ---
EXAM: CT ANGIOGRAPHY CHEST WITHOUT AND WITH INTRAVENOUS CONTRAST CLINICAL INDICATION: back/chest pain TECHNIQUE: Helically acquired angiography images were obtained of the chest without and with intravenous contrast. CTDIvol = ( 14.42 ) mGy, DLP = ( 422.20 ) mGycm This CT exam was performed using one or more of the following dose reduction techniques: automated exposure control, adjustment of the mA and/or kV according to patient size, and/or use of iterative reconstruction technique. This report was created using [employer] report generation technology. MIP reconstructed images were created and reviewed. CONTRAST: IV 75mL Isovue-370 COMPARISON: None. FINDINGS: PULMONARY ARTERIES: Unremarkable. Normal in caliber. No evidence of pulmonary embolism. AORTA: Unremarkable. Normal in caliber. No evidence of dissection. GREAT VESSELS OF AORTIC ARCH: Unremarkable. Normal in caliber. No evidence of dissection. LUNGS AND PLEURAL SPACES: Atypical infectious reticular nodular process involving the posterior aspect of the right upper lobe. Indeterminate 7 mm pulmonary nodule at the left upper lobe with apparent and pleural retraction. No associated calcifications. No pleural effusion or thickening. No pneumothorax. HEART: Unremarkable. Heart size is normal. No pericardial effusion. No signs of right heart strain, ratio of right ventricle to left ventricle measures less than 1. MEDIASTINUM: Unremarkable. No mediastinal or hilar adenopathy. Esophagus is unremarkable. No hiatal hernia. THYROID: Unremarkable. No thyroid lesions. BONES/JOINTS: No suspicious lytic or sclerotic lesions of bone. LYMPH NODES: Small calcified lymph node involving the left suprahilar region. LIVER: Multiple hepatic cysts which appear to be benign. Largest measures up to 4.2 cm. Small calcified granuloma involving the spleen. CT/CTA Chest W/WO Contrast IMPRESSION: 1. No PE or other acute disease. 2. Indeterminate 7 mm pulmonary nodule at the left upper lobe with apparent pleural retraction which increases suspicion. Refer to Pulmonology for further management. Electronically Signed: Humberto Hernandez MD at 22:39 EDT ,
[2022-04-21] MEDS: Ondansetron 4 MG/2 ML Vial IV (21:10)
[2022-04-21 21:12] LABS: Anion Gap 9 (5-15); BUN 14 mg/dL (7-18); BUN/Creat Ratio 15.8 RATIO (10-20); Calcium,Total 9.2 mg/dL (8.5-10.1); Chloride 102 mmol/L (98-107); Creatinine, Serum 0.88 mg/dL (0.55-1.02); EST Glomerular Filtration Rate 66 mL/min (>60); Est Glom Filt Rate - Afr Amer 79 mL/min (>60); Estimated Creatinine Clearance 43.58 ml/min; Glucose 119 mg/dL (74-106); Potassium 3.8 mmol/L (3.5-5.1); Sodium Level 136 mmol/L (136-145); Troponin-I HS (w/2H Reflex) 4 pg/mL (3.0-54.0)
[2022-04-21] MEDS: Morphine 4 MG/ML Syringe IV (21:12)
[2022-04-21] MEDS: 0.9% Normal Saline 1,000 ML 150 ML IV (21:16)
[2022-04-21 21:36] LABS: Differential Comment SCANNED
[2022-04-21] MEDS: Morphine 2 MG/ML Syringe IV (21:49)
--- NOTE | 2022-04-21 21:50 | ED.RN ---
Dr. Barrett aware pt did not want to take all 4 mg of morphine at once. dose split up into two 2 mg doses.
[2022-04-21 22:04] LABS: AST(SGOT) 34 U/L (15-37); Alanine Aminotransfer ALT/SGPT 39 U/L (13-56); Albumin, Serum 3.9 g/dL (3.2-5.0); Alkaline Phosphatase 104 U/L (45-117); Bilirubin, Direct 0.14 mg/dL (0.00-0.30); Globulin 3.5 g/dL (2.2-4.2); Protein, Total 7.4 g/dL (6.4-8.2)
[2022-04-21 22:29] VITALS: BP 158/77; PULSE 64; RESP 12; O2SAT 98
--- NOTE | 2022-04-21 22:34 | EKG12_ITS ---
Test Reason : REPEAT CP Blood Pressure : / mmHG Vent. Rate : 064 BPM Atrial Rate : 064 BPM P-R Int : 222 ms QRS Dur : 104 ms QT Int : 430 ms P-R-T Axes : 041 034 041 degrees QTc Int : 443 ms Sinus rhythm with 1st degree A-V block Nonspecific T wave abnormality Confirmed by MELISSA FRANCISCO, MAHAD ([id number]), make up editor GÓMEZ BARAHOAN ([id number]) on 04/23/2022 8:18:14 AM Referred By: LAURA Confirmed By:MAHAD TORRES MD
[2022-04-21 22:50] LABS: Reflex Troponin-HS? (from REC) Y
--- NOTE | 2022-04-21 22:58 | PCM.HP.STD ---
HPI - General General Date of Admission: 04/21/22 Date of Service: 04/21/22 Chief Complaint: Pain in her upper back HPI Narrative QUYEN LEVI, is a 77 F with a significant history of hypertension; neuropathy and atrial fibrillation who presents emergency department with pain at her upper back. Her pain was progressively worsening and then the severity reduced. Her pain is located in between her shoulder blades and into her shoulders and into her bilateral arms. Also her pain radiated to her abdomen. She described the pain at her upper back as an ache and the pain in her bilateral arms as heaviness. She described the intensity of the pain as severe. She denies any aggravating or ameliorating factors to the pain. She denies any nausea or vomiting. Associated with symptom is diaphoresis. [facility] Medical History (Updated 04/21/22 @ 23:[address] 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 Neuropathy Osteoarthritis Osteoporosis Paroxysmal atrial fibrillation Paroxysmal atrial tachycardia URI (upper respiratory infection) Home Medications omeprazole 20 mg capsule,delayed release 20 mg PO QDAY 03/31/18 [History Last Taken Unknown] multivit with min-folic acid-lutein 400 mcg-250 mcg chewable tablet (Centrum Silver) 1 tab PO .COMPLEX 04/02/18 [History Last Taken Unknown] loratadine 10 mg tablet (Claritin) 10 mg PO QDAY PRN Allergy Symptoms 01/27/19 [History Last Taken Unknown] aspirin 81 mg tablet,delayed release (Adult Low Dose Aspirin) 81 mg PO DAILY 02/24/20 [History Last Taken Unknown] atorvastatin 10 mg tablet 10 mg PO DAILY #90 tabs 04/23/21 [Rx Last Taken Unknown] warfarin 3 mg tablet 3 mg PO .COMPLEX #90 tabs 09/06/21 [Rx Last Taken Unknown] cholecalciferol (vitamin D3) 25 mcg (1,000 unit) capsule 1,000 unit PO BID 09/16/21 [History Last Taken Unknown] flecainide 50 mg tablet 50 mg PO Q12H #180 tabs 09/16/21 [Rx Last Taken Unknown] lisinopril 10 mg tablet 10 mg PO QDAY #90 tabs 12/02/21 [Rx Last Taken Unknown] metoprolol succinate 50 mg tablet,extended release 24 hr 50 mg PO BID #180 tabs 01/16/22 [Rx Last Taken Unknown] duloxetine 20 mg capsule,delayed release 1 cap PO DAILY 04/21/22 [History Last Taken Unknown] Allergy/AdvReac Type Severity Reaction Status Date / Time acetaminophen [From Vicodin] AdvReac Severe Unknown Verified 04/21/22 20:18 atorvastatin [From Lipitor] AdvReac Severe Muscle Verified 04/21/22 20:18 spasms codeine AdvReac Severe Unknown Verified 04/21/22 20:18 fenofibrate [From Tricor] AdvReac Severe Joint pain Verified 04/21/22 20:18 fluvastatin [From Lescol] AdvReac Severe Unknown Verified 04/21/22 20:18 hydrocodone [From Vicodin] AdvReac Severe Unknown Verified 04/21/22 20:18 lovastatin [From Mevacor] AdvReac Severe Muscle Verified 04/21/22 20:18 spasms prednisone AdvReac Severe Unknown Verified 04/21/22 20:18 pravastatin AdvReac Intermediate myalgias Verified 04/21/22 20:18 simvastatin AdvReac Intermediate didn't Verified 04/21/22 20:18 help cholesterol, some myalgias also Family History Mother , age 51 Heart disease Myocardial infarction Father Diabetes Brother Diabetes Sister Diabetes Sister Diabetes Sister Diabetes Sister Diabetes Other Hypertension Surgical History History of appendectomy History of carpal tunnel release History of cataract extraction (2018) History of hysterectomy History of left heart catheterization (07/02/09) History of tonsillectomy Social History Smoking Status: Never smoker alcohol intake: never substance use type: does not use caffeine: No ROS ROS Narrative Pertinent positives and pertinent negatives as noted in HPI. All other systems were reviewed and are negative. Vital Signs Vital Signs Vital Signs: 04/21/22 20:18 04/21/22 22:29 Temperature 96.5 F L Temperature Source Temporal Pulse Rate 65 64 Respiratory Rate 16 12 Blood Pressure 171/127 H 158/77 H Blood Pressure Mean 141 104 Pulse Ox 98 98 Oxygen Delivery Method Room Air Room Air Weight Weight: 74.843 kg Body Mass Index (BMI) 29.2 Physical Exam Narrative Physical exam: General: Well-nourished, well-developed. Head: Normocephalic, atraumatic, no tenderness Eyes: Vision is grossly intact. Injection of right. EOMI ENT, no trauma, moist mucous membranes, no rhinorrhea Neck: Nontender, full range of motion, no spinal tenderness, deformities, step-off CVS: Regular rate and rhythm. S1-S2 present. No murmur, gallop or rub. Respiratory : clear to auscultation bilaterally, chest wall nontender, no wheezing Abdomen: Soft, nontender, nondistended, normal bowel sounds, no masses : Deferred Back: Nontender, no CVA tenderness, no midline spinal tenderness, deformities, step-offs Extremities: Nontender full range of motion, no trauma Skin: Normal color, no trauma, abrasions Neuro: Alert, oriented, cranial nerves II through XII grossly intact. Psychiatry: Normal mood. Normal affect. Not depressed. Not anxious. Results Lab / Micro Data Result Diagrams: 04/21/22 20:45 04/21/22 20:45 Labs: Laboratory Results - last 24 hr 04/21/22 20:45: WBC 10.9, RBC 3.88 L, Hgb 12.6, Hct 37.6, MCV 96.9, MCH 32.5 H, MCHC 33.5, RDW Std Deviation 44.3 H, RDW Coeff of Nathaniel 12.6, Plt Count 295, MPV 10.4, Immature Gran % (Auto) 0.300, Neut % (Auto) 43.9 L, Lymph % (Auto) 46.5 H, [place] % (Auto) 8.1, Eos % (Auto) 0.9, Baso % (Auto) 0.3, Absolute Neuts (auto) 4.8, Absolute Lymphs (auto) 5.04 H, Nucleated RBC % 0, Differential Comment SCANNED 04/21/22 20:45: Sodium 136, Potassium 3.8, Chloride 102, Carbon Dioxide 25.0, Anion Gap 9, BUN 14, Creatinine 0.88, Estim Creat Clear Calc 43.58, Est GFR (MDRD) Af Amer 79, Est GFR (MDRD) Non-Af 66, BUN/Creatinine Ratio 15.8, Glucose 119 H, Calcium 9.2, Troponin I High Sens 4 04/21/22 20:45: PT 28.6 H, INR 2.7 04/21/22 20:45: Total Bilirubin 0.30, Direct Bilirubin 0.14, AST 34, ALT 39, Alkaline Phosphatase 104, Total Protein 7.4, Albumin 3.9, Globulin 3.5 Radiology Impression Chest X-Ray 04/21/22 20:30 IMPRESSION: No acute disease. Electronically Signed: Humberto Hernandez MD at 21:17 EDT Reading Location ID and State: [id number] / [employer] , Service support , Chest CTA 04/21/22 21:04 IMPRESSION: 1. No PE or other acute disease. 2. Indeterminate 7 mm pulmonary nodule at the left upper lobe with apparent pleural retraction which increases suspicion. Refer to Pulmonology for further management. Electronically Signed: Humberto Hernandez MD at 22:39 EDT Reading Location ID and State: [id number] / [employer] , Service support , ADDENDUM: 04/21/22 2248 IMPRESSION: 1. No PE or other acute disease. 2. Indeterminate 7 mm pulmonary nodule at the left upper lobe with apparent pleural retraction which increases suspicion. Refer to Pulmonology for further management. N.B. : CRISTOBAL Teajda, confirmed on 04/21/2022 22:41:08 (ET) that the healthcare facility has received the radiology report. Electronically Signed: Humberto Hernandez MD at 22:39 EDT , Assessment & Plan Assessment/Plan (1) Chest pain: PLAN: Place on a monitored bed at progressive care unit Actual CXR image was independently visualized. No acute cardiopulmonary process was noted. And I agree with radiologist interpretation. Actual EKG tracing was independently visualized. EKG tracing showed sinus rhythm with first-degree AV block. No ST or T abnormality noted ASA 81 mg p.o. daily ordered SL NTG 0.4 mg prn as needed for chest pain ordered Morphine as needed for pain ordered We will check lipid panel. Home statin continued Initial high sensitive troponin was 4. Repeat 3. Serial cardiac enzymes ordered Stat EKG as needed for chest pain Cardiac stress test in the AM if the cardiac enzymes are negative. Of note patient reports the neuropathy and decreased stamina and is unsure what she can do treadmill stress test Trend BMP (2) Paroxysmal atrial fibrillation: PLAN: Patient sinus rhythm with physical AV block on presentation. Observe on telemetry. Flecainide continued. Metoprolol continued. Warfarin continued. INR therapeutic. Trend PT/INR. (3) Essential (primary) hypertension: PLAN: Blood pressure is not within goal. Lisinopril and metoprolol continued. Trend (4) Lung nodule seen on imaging study: PLAN: Pulmary nodule seen on CT with radiology recommending pulmonary follow-up. Recommend on discharge referral to optometric technician (5) Conjunctivitis: PLAN: Right conjunctivitis Erythromycin ointment ordered. PLAN: Plan DVT prophylaxis: Not indicated as patient is on Coumadin for Afib. INR therapeutic. Coumadin continued. Charges/Coding Visit Charges OBSV E&M: 88060 Initial observation care L3
[2022-04-21 23:31] VITALS: BP 139/71; PULSE 64; RESP 17; TEMP 36.1; O2SAT 96
[2022-04-21 23:31] LABS: Troponin-I HS 3 pg/mL (3.0-54.0)
[2022-04-21] MEDS: HYDROmorphone 0.5 MG/0.5 ML SYRINGE IV (23:45)
--- NOTE | 2022-04-21 23:55 | EKG12_ITS ---
Test Reason : ADMIT. EKG Blood Pressure : / mmHG Vent. Rate : 062 BPM Atrial Rate : 062 BPM P-R Int : 238 ms QRS Dur : 106 ms QT Int : 420 ms P-R-T Axes : 058 032 049 degrees QTc Int : 426 ms Sinus rhythm with 1st degree A-V block Nonspecific T wave abnormality Abnormal ECG Confirmed by MELISSA FRANCISCO, MAHAD ([id number]), editor dictionary GÓMEZ BARAHONA ([id number]) on 04/23/2022 8:24:31 AM Referred By: HARVINDER Confirmed By:MAHAD TORRES MD
[2022-04-22] VITALS (13 sets, daily range): BP systolic 138–153; BP diastolic 64–77; PULSE 67–80; RESP 16–18; TEMP 36–36.6; O2SAT 92–98; BMI 30.5
[2022-04-22] MEDS: Erythromycin Base 1 OPTH.TUBE 1 APPLIC RIGHT EYE ×4 (00:33→21:08)
[2022-04-22 03:43] LABS: Absolute Lymphocyte Count 2.97 X10^3/uL (0.83-4.51); Absolute Neutrophil Count 4.8 X10^3/uL (2.0-7.7); Basophil# 0.03 X10^3/uL; Basophil% 0.4 % (0-1); Eosinophil# 0.09 X10^3/uL; Eosinophils% 1.1 % (0-5); Hematocrit 41.8 % (37-47); Lymphocyte # 2.97 X10^3/ul (0.83-4.51); Lymphocyte % 35.3 % (19-41); Mean Corp Hgb Conc 31.1 g/dL (32-36); Mean Corpuscular Hgb 32.1 pg (27.0-32.0); Mean Corpuscular Volume 103.2 fL (81-99); Mean Platelet Vol. 10.3 fl (6.2-12.0); Monocyte% 5.9 % (0-10); NRBC Flagged by Analyzer 0 % (0-5); Neutrophil # 4.81 X10^3/uL (2.7-7.7); Neutrophil % 57.1 % (47-70); Platelet Count 239 K/mm3 (150-450); RBC Distribution Width CV 12.5 % (11.6-14.6); RBC Distribution Width SD 47.7 fl (35.1-43.9); Red Blood Count 4.05 M/mm3 (4.2-5.4); White Blood Count 8.4 K/mm3 (4.4-11.0)
[2022-04-22 03:54] LABS: International Normalized Ratio 2.9; Prothrombin Time (Protime)PT. 30.3 SECONDS (11.7-14.9)
[2022-04-22 04:02] LABS: Troponin-I HS 4 pg/mL (3.0-54.0)
[2022-04-22 04:38] LABS: Anion Gap 9 (5-15); BUN 11 mg/dL (7-18); BUN/Creat Ratio 15.1 RATIO (10-20); Calcium,Total 8.4 mg/dL (8.5-10.1); Chloride 107 mmol/L (98-107); Cholesterol 234 mg/dL (200); Creatinine, Serum 0.73 mg/dL (0.55-1.02); EST Glomerular Filtration Rate 82 mL/min (>60); Est Glom Filt Rate - Afr Amer 100 mL/min (>60); Estimated Creatinine Clearance 38.35 ml/min; Glucose 106 mg/dL (74-106); High Density Lipoprotein 54 mg/dL; Potassium 4.5 mmol/L (3.5-5.1); Sodium Level 138 mmol/L (136-145); Triglycerides 280 mg/dL; Very Low Density Lipoprotein 56 mg/dL (5-40)
[2022-04-22] MEDS: 0.9% Saline Lock 10 ML Syringe IV ×3 (06:36→15:15)
[2022-04-22] MEDS: Aspirin E.C. 81 MG Tablet PO (06:43)
[2022-04-22] MEDS: Lisinopril 10 MG Tablet PO (06:44)
--- NOTE | 2022-04-22 07:45 | CT_ITS ---
STUDY: CT BRAIN WITHOUT CONTRAST REASON FOR EXAM: Female, 77 years old. Worsening neuro symptoms RADIATION DOSAGE (If Supplied By Facility): CTDIvol = ( 44.99 ) mGy, DLP = ( 796.11 ) mGycm TECHNIQUE: Transaxial CT imaging of the brain was performed without administration of intravenous contrast material. Individualized dose optimization techniques were used for this CT. COMPARISON: No relevant priors. FINDINGS: Normal soft tissue structures. Normal calvarium. There is mild cerebral atrophy with widening of the extra-axial spaces and ventricular dilatation. There are areas of decreased attenuation within the white matter tracts of the supratentorial brain, consistent with microvascular disease changes. Normal basal ganglia and thalami. Normal brainstem. Normal cerebellum. There is no intracranial hemorrhage. There are no findings of an acute ischemic infarction. Calcific plaques of the cavernous carotids. Normal visualized paranasal sinuses. CT/Brain/Head without Contrast IMPRESSION: Chronic involutional changes of the brain. Electronically Signed: Vernon Pulliam MD at 10:15 EDT ,
[2022-04-22] MEDS: Ondansetron 4 MG/2 ML Vial IV (07:46)
--- NOTE | 2022-04-22 07:46 | CT_ITS ---
STUDY: CT CERVICAL SPINE WITHOUT CONTRAST REASON FOR EXAM: Female, 77 years old. Progressive weakness RADIATION DOSAGE (If Supplied By Facility): CTDIvol = ( 22.64 ) mGy, DLP = ( 436.67 ) mGycm TECHNIQUE: High resolution transaxial imaging was performed without contrast material. Sagittal and coronal images were reconstructed. Individualized dose optimization techniques were used for this CT. COMPARISON: None FINDINGS: Normal craniovertebral junction. There are degenerative changes of the anterior atlantoaxial articulation. Normal odontoid process. There is straightening of the normal cervical lordosis. Normal vertebral bodies and posterior osseous elements. C2-3: Normal endplates. Normal disc height and morphology. Normal central canal and intervertebral neuroforamina. C3-4: Moderate degree of disc space narrowing. Facet joint osteoarthritis and hypertrophy. Uncovertebral arthrosis worse on the left side with a mild degree of left neural foraminal stenosis. C4-5: Moderate degree of disc space narrowing. Uncovertebral arthrosis. No significant stenosis seen. C5-6: Moderate degree of disc space narrowing. Facet joint osteoarthritis. Uncovertebral arthrosis. Moderate degree of bilateral neural foraminal stenosis. C6-7: Moderate degree of disc space narrowing. Facet joint osteoarthritis. No significant stenosis is seen. C7-T1: Normal endplates. Normal disc height and morphology. Normal central canal and intervertebral neuroforamina. Normal visualized soft tissue structures. CT/Spine Cervical without Contras IMPRESSION: Multilevel degenerative changes, as described above. Electronically Signed: Vernon Pulliam MD at 10:17 EDT ,
--- NOTE | 2022-04-22 07:46 | CT_ITS ---
STUDY: CT THORACIC SPINE WITHOUT CONTRAST REASON FOR EXAM: Female, 77 years old. Mid back pain, difficulty walking RADIATION DOSAGE (If Supplied By Facility): CTDIvol = ( 21.02 ) mGy, DLP = ( 752.68 ) mGycm TECHNIQUE: The patient was scanned in a multi detector CT scanner. High resolution imaging was performed. Images were obtained from C7 to T12. Sagittal and coronal images were reconstructed. Individualized dose optimization techniques were used for this CT. COMPARISON: None. FINDINGS: Bones are demineralized. Normal visualized cervical spine. There is an increased kyphosis of the thoracic spine. There is no substantial scoliosis. Normal thoracic vertebrae and endplates. There is multilevel degenerative disc disease with loss of the disc space heights. The soft tissue structures are unremarkable. CT/Spine Thoracic without Contras IMPRESSION: Age consistent degenerative changes, no acute findings. Electronically Signed: Jose Cha MD at 10:10 EDT ,
[2022-04-22 09:17] LABS: CPK Total, Creatine Kinase 111 U/L (26-192)
--- NOTE | 2022-04-22 10:49 | NURSING ---
This RN attempted to call Stress test multiple times starting at 10:30 to let them know pt was back from CT. No answer. notified.
--- NOTE | 2022-04-22 11:16 | NURSING ---
This RN updated pt's two sisters at bedside per pt request.
--- NOTE | 2022-04-22 13:25 | STRESSREP_ITS ---
Stress Test Report Date: 04-22-2022 Procedure: Pharmacologic stress nuclear imaging study Indications: Chest pain; atrial dysrhythmia Consent: Per the patient Procedure: The patient underwent pharmacologic (Regadenoson 0.4mg ) evaluation with a peak heart rate of 93 beats per minute (65%predicted maximal heart rate) and a peak blood pressure of 132/76 mmHg. The baseline ECG demonstrated normal sinus rhythm; nonspecific T wave abnormality. The peak pharmacologic ECG demonstrated no obvious ECG changes. There were no cardiac dysrhythmias pretest, during pharmacologic infusion, or recovery. There was no complaint of chest discomfort during pharmacologic infusion or recovery. The examination was discontinued secondary to completion of protocol. Impression: 1. Pharmacologic (Regadenoson) evaluation 2. Peak pharmacologic ECG with no obvious ECG changes. 3. There were no cardiac dysrhythmias pretest, during pharmacologic infusion, or recovery. 4. Nuclear images pending Myocardial perfusion imaging study: Technique: The patient was injected with 11.7 millicuries of technetium 99m Cardiolite and subsequently rest SPECT Cardiolite nuclear imaging was obtained in the horizontal long, vertical long, and short axis views. The patient underwent pharmacologic (Regadenoson) evaluation with a peak heart rate of 93 beats per minute (65% percent predicted maximal heart rate) and a peak blood pressure of 132/76 mmHg. The patient was injected with 34.6 millicuries of technetium 99m Cardiolite and subsequently stress SPECT Cardiolite nuclear imaging was obtained in the horizontal long, vertical long, and short axis views. A gated Cardiolite study at peak stress was obtained. Interpretation: Rest and stress SPECT Cardiolite nuclear imaging status post realignment, normalization, and attenuation correction demonstrate relative uniform tracer uptake and myocardial perfusion appearing within normal limits. There is end systolic thickening and brightening. The gated Cardiolite study demonstrates myocardial thickening and inward wall motion. The reported LVEF is 89%. Impression: 1. Rest and stress SPECT Cardiolite nuclear imaging demonstrate relative uniform tracer uptake and myocardial perfusion appearing within normal limits. 2. The gated Cardiolite study reports an LVEF of 89%. This note was generated with [employer] software. It may contain incorrect words, spelling, and punctuation that were not noted in checking the note before signing.
--- NOTE | 2022-04-22 13:34 | DCINST_ITS ---
Discharge Instructions Follow Up Care Test Results: Test results from this visit will be discussed in further detail at your follow- up appointment, if applicable. Discharge Plan Admission Admit Date/Time: 04/21/22 23:22 Attending Provider: Elina Keller Primary Care Provider: Cat Moran Consulting Providers: Willie Cordero Discharge Orders/Prescriptions Prescriptions: No Action [id number] acid-lutein [Centrum Silver] 400-250 mcg tablet,chewable 1 tab PO .COMPLEX Label Comments: 1 tab PO q day Rx Instructions: 1 tab PO q day loratadine [Claritin] 10 mg tablet 10 mg PO QDAY PRN (Reason: Allergy Symptoms) omeprazole 20 mg capsule,delayed release(DR/EC) 40 mg PO QDAY cholecalciferol (vitamin D3) 1,000 unit capsule 25 mcg (1,000 unit) capsule 1,000 unit PO BID flecainide 50 mg tablet 50 mg PO Q12H Qty: 180 3RF duloxetine 20 mg capsule,delayed release(DR/EC) 1 cap PO DAILY Label Comments: TAKE 1 CAPSULE BY MOUTH ONCE DAILY aspirin [Adult Low Dose Aspirin] 81 mg tablet,delayed release (DR/EC) 81 mg PO DAILY atorvastatin 10 mg tablet 10 mg PO DAILY Qty: 90 3RF warfarin 3 mg tablet 3 mg PO .COMPLEX Qty: 90 3RF Protocol: Dose Management Condition: Thursday Dose/Route: 3 mg Instruction: 1 x 3 mg tablet Condition: Thursday Dose/Route: 3 mg Instruction: 1 x 3 mg tablet Condition: Thursday Dose/Route: 3 mg Instruction: 1 x 3 mg tablet Condition: Thursday Dose/Route: 3 mg Instruction: 1 x 3 mg tablet Condition: Dose/Route: 3 mg Instruction: 1 x 3 mg tablet Condition: Thursday Dose/Route: 3 mg Instruction: 1 x 3 mg tablet Condition: Thursday Dose/Route: 3 mg Instruction: 1 x 3 mg tablet Protocol Text: Adjustment Start Date: Thursday03/25/22 INR Value: 2.5 INR Date: 03/25/22 Recheck Date: 04/22/22 Rx Instructions: 3 mg PO daily lisinopril 10 mg tablet 10 mg PO QDAY Qty: 90 3RF metoprolol succinate 50 mg tablet extended release 24 hr 50 mg PO BID Qty: 180 3RF Referrals / Follow Up: Cat Moran DO [Primary Care Provider] -
--- NOTE | 2022-04-22 14:34 | MRI_ITS ---
EXAM: MR HEAD WITHOUT INTRAVENOUS CONTRAST CLINICAL INDICATION: ataxia, poor coordination,dizzy TECHNIQUE: Multiplanar and multisequence MR images of the brain were obtained without intravenous contrast. This report was created using TY[employer] report generation technology. COMPARISON: CT head done earlier FINDINGS: BRAIN AND EXTRA-AXIAL SPACES: Unremarkable. No intra- or extra-axial hemorrhage. No evidence of acute infarct. No intracranial mass or mass effect. There is preservation of the mackey/white matter interface. Posterior fossa structures are unremarkable. Ventricles are appropriate for age. No hydrocephalus. Basal cisterns are patent. SELLA: Unremarkable. Normal sella turcica, pituitary gland, infundibular stalk, optic chiasm and hypothalamus. AUDITORY SYSTEM: Unremarkable. The internal auditory canals are patent. BONES/JOINTS: Unremarkable. No discrete lytic or blastic abnormalities. SINUSES: Unremarkable as visualized. Clear. MASTOID AIR CELLS: Unremarkable as visualized. Clear. ORBITS: Unremarkable as visualized. Both globes, extraocular muscles, optic nerves and retrobulbar fat appear unremarkable. VASCULATURE: Unremarkable as visualized. Normal flow voids in the major intracranial circulation. MRI/Brain without Contrast IMPRESSION: Negative MRI brain without intravenous contrast. Electronically Signed: Brian Sandoval MD at 18:23 EDT ,
--- NOTE | 2022-04-22 14:36 | PCM.PN.HOSP ---
Subjective Subjective Follow-up on chest pain/Paroxysmal atrial fibrillation/ataxia: Seen and examined. She was found to be very ataxic. CT neck and thorax was negative showed multilevel degenerative changes. She underwent nuclear stress test that was unremarkable. Patient was seen by PT and OT and found to be very ataxic. MRI of the brain was requested. Objective Data Objective Data Vital Signs: Vital Signs Temp Pulse Resp BP Pulse Ox O2 Del Method 97.8 F 77 16 140/77 H 92 Room Air 04/22/22 13:17 04/22/22 13:17 04/22/22 13:17 04/22/22 13:17 04/22/22 13:17 04/22/22 13:17 Oxygen Delivery Method Room Air Weight: 78.2 kg Body Mass Index (BMI) 30.5 Intake & Output: Intake and Output for Last 24 Hours 04/20/22 04/21/22 04/22/22 23:59 23:59 23:59 Intake Total 358 / 358 Balance 358 / 358 Lab / Micro Data Result Diagrams: 04/22/22 03:36 04/22/22 03:36 Labs: Laboratory Results - last 24 hr 04/21/22 20:45: WBC 10.9, RBC 3.88 L, Hgb 12.6, Hct 37.6, MCV 96.9, MCH 32.5 H, MCHC 33.5, RDW Std Deviation 44.3 H, RDW Coeff of Nathaniel 12.6, Plt Count 295, MPV 10.4, Immature Gran % (Auto) 0.300, Neut % (Auto) 43.9 L, Lymph % (Auto) 46.5 H, [place] % (Auto) 8.1, Eos % (Auto) 0.9, Baso % (Auto) 0.3, Absolute Neuts (auto) 4.8, Absolute Lymphs (auto) 5.04 H, Nucleated RBC % 0, Differential Comment SCANNED 04/21/22 20:45: Sodium 136, Potassium 3.8, Chloride 102, Carbon Dioxide 25.0, Anion Gap 9, BUN 14, Creatinine 0.88, Estim Creat Clear Calc 43.58, Est GFR (MDRD) Af Amer 79, Est GFR (MDRD) Non-Af 66, BUN/Creatinine Ratio 15.8, Glucose 119 H, Calcium 9.2, Troponin I High Sens 4 04/21/22 20:45: PT 28.6 H, INR 2.7 04/21/22 20:45: Total Bilirubin 0.30, Direct Bilirubin 0.14, AST 34, ALT 39, Alkaline Phosphatase 104, Total Protein 7.4, Albumin 3.9, Globulin 3.5 04/21/22 23:05: Troponin I High Sens 3 04/22/22 03:36: WBC 8.4, RBC 4.05 L, Hgb 13.0, Hct 41.8, MCV 103.2 H D, MCH 32.1 H, MCHC 31.1 L D, RDW Std Deviation 47.7 H, RDW Coeff of Nathaniel 12.5, Plt Count 239, MPV 10.3, Immature Gran % (Auto) 0.200, Neut % (Auto) 57.1, Lymph % (Auto) 35.3, [place] % (Auto) 5.9, Eos % (Auto) 1.1, Baso % (Auto) 0.4, Absolute Neuts (auto) 4.8, Absolute Lymphs (auto) 2.97, Nucleated RBC % 0 04/22/22 03:36: PT 30.3 H, INR 2.9 04/22/22 03:36: Sodium 138, Potassium 4.5, Chloride 107, Carbon Dioxide 22.0, Anion Gap 9, BUN 11, Creatinine 0.73, Estim Creat Clear Calc 38.35, Est GFR (MDRD) Af Amer 100, Est GFR (MDRD) Non-Af 82, BUN/Creatinine Ratio 15.1, Glucose 106, Calcium 8.4 L, Triglycerides 280 H, Cholesterol 234 H, LDL Cholesterol 124, VLDL Cholesterol 56 H, HDL Cholesterol 54 04/22/22 03:36: Troponin I High Sens 4 04/22/22 08:20: Total Creatine Kinase 111 Radiography Diagnostic Testing: Radiology Impression Chest X-Ray 04/21/22 20:30 IMPRESSION: No acute disease. Electronically Signed: Humberto Hernandez MD at 21:17 EDT , Chest CTA 04/21/22 21:04 IMPRESSION: 1. No PE or other acute disease. 2. Indeterminate 7 mm pulmonary nodule at the left upper lobe with apparent pleural retraction which increases suspicion. Refer to Pulmonology for further management. Electronically Signed: Humberto Hernandez MD at 22:39 EDT , ADDENDUM: 04/21/22 3248 IMPRESSION: 1. No PE or other acute disease. 2. Indeterminate 7 mm pulmonary nodule at the left upper lobe with apparent pleural retraction which increases suspicion. Refer to Pulmonology for further management. N.B. : CRISTOBAL Tejada, confirmed on 04/21/2022 22:41:08 (ET) that the healthcare facility has received the radiology report. Electronically Signed: Humberto Hernandez MD at 22:39 EDT , Brain CT 04/22/22 07:45 IMPRESSION: Chronic involutional changes of the brain. Electronically Signed: Vernon Pulliam MD at 10:15 EDT , Cervical Spine CT 04/22/22 07:46 IMPRESSION: Multilevel degenerative changes, as described above. Electronically Signed: Vernon Pulliam MD at 10:17 EDT , Thoracic Spine CT 04/22/22 07:46 IMPRESSION: Age consistent degenerative changes, no acute findings. Electronically Signed: Jose Cha MD at 10:10 EDT , Physical Exam Narrative Physical exam: General: Alert, Oriented x3, Cooperative, subconjunctival hemorrhages on the lateral aspect of the eyes HEENT: Atraumatic Oral: Moist Mucosa Neck: Supple Lungs: Diminished to auscultation Cardiovascular: HS I+II, regular, no murmurs Abdomen: Bowel Sounds Present, Soft, Non Tender Extremities: No edema Skin: No rashes, No breakdown Neurological: Ataxic, power is 5/5 in all extremities Psych/Mental Status: Appropriate Assessment & Plan Assessment/Plan (1) Ataxia: PLAN: Plan 1. Ataxia, unclear etiology, CT of the neck showed multilevel degenerative changes, thoracic spine CT is unremarkable Brain CT is unremarkable, will get MRI of the brain 2. Chest discomfort, ACS ruled out with negative stress test 3. Paroxysmal atrial fibrillation, in normal sinus rhythm, Continue flecainide, metoprolol, Coumadin 4. Hyperlipidemia, has statin intolerance, will discuss about starting Zetia 5. DVT PPx-INR therapeutic, on coumadin Charges/Coding Visit Charges OBSV E&M: 44165 Subsequent observation care L3
[2022-04-22] MEDS: Acetaminophen 325 MG Tablet 650 MG PO ×2 (14:58→21:01)
[2022-04-22] MEDS: proCHLORPERazine 10 MG/2 ML Vial 5 MG IV (14:59)
[2022-04-22] MEDS: Dextrose 5%/0.9% NaCl 1,000 ML 100 ML IV (15:01)
--- NOTE | 2022-04-22 15:13 | CASEMGMT ---
This RN CM to room with DELGADO form, explanation done-pt voices understanding, and signs DELGADO form. Original to chart and copy to pt. Pt states has a copy of MCR Inpt vs OBS booklet at bedside. Pt voices no further questions/concerns/needs. SStaten NOAH PUENTE
[2022-04-22] MEDS: DULoxetine Hcl 20 MG Capsule PO (15:53)
[2022-04-22] MEDS: Pantoprazole Sodium 20 MG Tablet PO (15:53)
[2022-04-22] MEDS: Flecainide 100 MG Tablet 50 MG PO ×2 (15:54→21:08)
[2022-04-22] MEDS: Cholecalciferol (VIT D3) 25 MCG TABLET (1,000 UNITS) PO (21:08)
[2022-04-22] MEDS: Metoprolol(XL)Succ 50 MG Tablet PO (21:08)
[2022-04-23] VITALS (8 sets, daily range): BP systolic 108–132; BP diastolic 55–75; PULSE 63–70; RESP 16; TEMP 36.2–36.8; O2SAT 95–97
[2022-04-23] MEDS: Dextrose 5%/0.9% NaCl 1,000 ML 100 ML IV ×2 (00:57→10:52)
[2022-04-23] MEDS: Erythromycin Base 1 OPTH.TUBE 1 APPLIC RIGHT EYE ×2 (05:20→13:40)
[2022-04-23 05:52] LABS: Absolute Lymphocyte Count 2.82 X10^3/uL (0.83-4.51); Absolute Neutrophil Count 4.4 X10^3/uL (2.0-7.7); Basophil# 0.03 X10^3/uL; Basophil% 0.4 % (0-1); Eosinophil# 0.08 X10^3/uL; Hematocrit 35.7 % (37-47); Hemoglobin 11.8 g/dL (12.0-15.0); Lymphocyte # 2.82 X10^3/ul (0.83-4.51); Lymphocyte % 35.2 % (19-41); Mean Corp Hgb Conc 33.1 g/dL (32-36); Mean Corpuscular Hgb 32.2 pg (27.0-32.0); Mean Corpuscular Volume 97.3 fL (81-99); Mean Platelet Vol. 10.6 fl (6.2-12.0); Monocyte# 0.68 X10^3/uL; Monocyte% 8.5 % (0-10); NRBC Flagged by Analyzer 0 % (0-5); Neutrophil # 4.38 X10^3/uL (2.7-7.7); Neutrophil % 54.7 % (47-70); Platelet Count 261 K/mm3 (150-450); RBC Distribution Width CV 12.6 % (11.6-14.6); RBC Distribution Width SD 44.7 fl (35.1-43.9); Red Blood Count 3.67 M/mm3 (4.2-5.4)
[2022-04-23 06:14] LABS: International Normalized Ratio 3.2; Prothrombin Time (Protime)PT. 32.6 SECONDS (11.7-14.9)
[2022-04-23 06:34] LABS: ALB/GLOB Ratio 1.1 RATIO (0.9-2.4); AST(SGOT) 24 U/L (15-37); Alanine Aminotransfer ALT/SGPT 27 U/L (13-56); Albumin, Serum 3.1 g/dL (3.2-5.0); Alkaline Phosphatase 68 U/L (45-117); Anion Gap 6 (5-15); BUN 7 mg/dL (7-18); BUN/Creat Ratio 10.6 RATIO (10-20); Calcium,Total 8.3 mg/dL (8.5-10.1); Chloride 109 mmol/L (98-107); Creatinine, Serum 0.66 mg/dL (0.55-1.02); EST Glomerular Filtration Rate 92 mL/min (>60); Est Glom Filt Rate - Afr Amer 111 mL/min (>60); Estimated Creatinine Clearance 38.35 ml/min; Globulin 2.9 g/dL (2.2-4.2); Glucose 110 mg/dL (74-106); Potassium 3.5 mmol/L (3.5-5.1); Sodium Level 141 mmol/L (136-145)
--- NOTE | 2022-04-23 07:46 | TELEMED_ITS ---
[facility] has confirmed receipt of a request for visit. This document confirms receipt of the order initiating the consult. To find the results of the consultation, please view the patient's reports for the scanned Tele[facility] Consult.
[2022-04-23] MEDS: Metoprolol(XL)Succ 50 MG Tablet PO (08:09)
[2022-04-23] MEDS: Lisinopril 10 MG Tablet PO (08:09)
[2022-04-23] MEDS: Aspirin E.C. 81 MG Tablet PO (08:09)
[2022-04-23] MEDS: Cholecalciferol (VIT D3) 25 MCG TABLET (1,000 UNITS) PO (08:09)
[2022-04-23] MEDS: Multivitamins,Ther W-Minerals Tablet 1 TABLET PO (08:09)
[2022-04-23] MEDS: Pantoprazole Sodium 20 MG Tablet PO (08:12)
[2022-04-23] MEDS: Acetaminophen 325 MG Tablet 650 MG PO ×2 (08:12→13:39)
[2022-04-23] MEDS: Flecainide 100 MG Tablet 50 MG PO (08:12)
[2022-04-23 08:22] LABS: Vitamin B12 462 pg/mL (211-911)
[2022-04-23] MEDS: DULoxetine Hcl 20 MG Capsule PO (09:22)
--- NOTE | 2022-04-23 11:13 | MRI_ITS ---
STUDY: MRI THORACIC SPINE WITHOUT CONTRAST REASON FOR EXAM: Female, 77 years old. Progressive weakness, inability to walk TECHNIQUE: Standardized fat and water weighted pulse sequences were obtained in the sagittal and axial planes. COMPARISON: None. FINDINGS: Normal kyphosis of the thoracic spine. There is no substantial scoliosis. T1-2, T2-3, T3-4, T4-5, T5-6, T6-7, T7-8, T8-9, T9-10, T10-11, T11-12: At T7/T8, there is a moderate-sized central disc protrusion which produces moderate spinal stenosis with abutment of the central spinal cord but with significant CSF surrounding the posterior aspect of the cord. Normal visualized thoracic cord. Normal conus medullaris that terminates at the L1 to. The soft tissue structures are unremarkable. MRI/Spine Thoracic (Routine) IMPRESSION: Focal disc protrusion at T7/T8 with abutment of the cord but no maeve cord compression. Electronically Signed: Rakesh Kemp MD at 15:42 EDT ,
--- NOTE | 2022-04-23 11:13 | MRI_ITS ---
STUDY: MRI CERVICAL SPINE WITHOUT CONTRAST REASON FOR EXAM: Female, 77 years old. Progressive weakness TECHNIQUE: Standardized fat and water weighted pulse sequences were obtained in the sagittal and axial planes. COMPARISON: CT 04/22/2022 FINDINGS: Normal foramen magnum and brainstem-cervical cord junction. Normal craniovertebral junction. Normal anterior atlantoaxial articulation. Normal odontoid process. Normal cervical lordosis. Normal vertebral bodies and posterior osseous elements. C2-3: Normal endplates. Normal disc height, signal and morphology. Normal central canal and intervertebral neural foramina. C3-4: Moderate bilobed disc osteophyte complex produces moderate spinal stenosis with abutment of the spinal cord and moderate bilateral neural foraminal stenosis. There is some hyperintensity of the cord at this level worrisome for myelomalacia. C4-5: Mild bilobed disc osteophyte complex with ankylosis of the posterior aspect of the disc space produces mild spinal stenosis but no neural foraminal stenosis. C5-6: Mild bilobed disc osteophyte complex with ankylosis of the posterior aspect of the disc space produces mild spinal stenosis and no neural foraminal stenosis. C6-7: Moderate bilobed disc osteophyte complex with moderate spinal stenosis with abutment of the central spinal cord and mild bilateral neural foraminal stenosis. Focal hyperintensity of the cord is level worrisome for myelomalacia. C7-T1: Mild bilobed disc osteophyte complex produces mild spinal stenosis and mild bilateral neural foraminal stenosis. Normal visualized soft tissue structures. MRI/Spine Cervical (Routine) IMPRESSION: Multilevel degenerative changes, as described above. Electronically Signed: Rakesh Kemp MD at 15:40 EDT ,
--- NOTE | 2022-04-23 12:38 | DCINST_ITS ---
Discharge Instructions Diet Discharge Diet: Low fat / Low cholesterol and 2000 mg Sodium Diet Activity Discharge Activity: Return to Normal Activity Follow Up Care Test Results: Test results from this visit will be discussed in further detail at your follow- up appointment, if applicable. Discharge Plan Admission Admit Date/Time: 04/21/22 23:22 Primary Reason for Your Visit: Chest discomfort, bilateral leg weakness Attending Provider: Elina Keller Primary Care Provider: Cat Moran Consulting Providers: Willie Cordero Instructions Additional Instructions / Restrictions: Continue to take the rest of your medications as prescribed. Follow-up with outpatient therapy as prescribed. Hold Coumadin tonight. Resume your Coumadin on 04/24/22 Discharge Orders/Prescriptions Prescriptions: Continued jj-het-bzkas acid-lutein [Centrum Silver] 400-250 mcg tablet,chewable 1 tab PO .COMPLEX Label Comments: 1 tab PO q day Rx Instructions: 1 tab PO q day loratadine [Claritin] 10 mg tablet 10 mg PO QDAY PRN (Reason: Allergy Symptoms) omeprazole 20 mg capsule,delayed release(DR/EC) 40 mg PO QDAY cholecalciferol (vitamin D3) 1,000 unit capsule 25 mcg (1,000 unit) capsule 1,000 unit PO BID flecainide 50 mg tablet 50 mg PO Q12H Qty: 180 3RF duloxetine 20 mg capsule,delayed release(DR/EC) 1 cap PO DAILY Label Comments: TAKE 1 CAPSULE BY MOUTH ONCE DAILY aspirin [Adult Low Dose Aspirin] 81 mg tablet,delayed release (DR/EC) 81 mg PO DAILY atorvastatin 10 mg tablet 10 mg PO DAILY Qty: 90 3RF warfarin 3 mg tablet 3 mg PO .COMPLEX Qty: 90 3RF Protocol: Dose Management Condition: Thursday Dose/Route: 3 mg Instruction: 1 x 3 mg tablet Condition: Thursday Dose/Route: 3 mg Instruction: 1 x 3 mg tablet Condition: Thursday Dose/Route: 3 mg Instruction: 1 x 3 mg tablet Condition: Thursday Dose/Route: 3 mg Instruction: 1 x 3 mg tablet Condition: Dose/Route: 3 mg Instruction: 1 x 3 mg tablet Condition: Thursday Dose/Route: 3 mg Instruction: 1 x 3 mg tablet Condition: Thursday Dose/Route: 3 mg Instruction: 1 x 3 mg tablet Protocol Text: Adjustment Start Date: Thursday03/25/22 INR Value: 2.5 INR Date: 03/25/22 Recheck Date: 04/22/22 Rx Instructions: 3 mg PO daily lisinopril 10 mg tablet 10 mg PO QDAY Qty: 90 3RF metoprolol succinate 50 mg tablet extended release 24 hr 50 mg PO BID Qty: 180 3RF Referrals / Follow Up: Cat Moran DO [Primary Care Provider] - In 1 Week Bowen Hdz DO [STAFF PHYSICIAN] - Within 2 Weeks Disposition Disposition (needs filled in before D/C Order can be placed): Home, Self Care
--- NOTE | 2022-04-23 14:20 | CASEMGMT ---
Per therapy, pt is doing much better today and would benefit from OP therapy at discharge. Pt agreeable to [facility] script and script obtained and faxed to [facility], copy to pt. Dustin ZAMORA CM
--- NOTE | 2022-04-23 15:25 | DS.PCM_ITS ---
Providers Date of Admission: 04/21/22 Date of Discharge: 04/23/22 Primary Care Physician: Cat Moran DO Reason For Visit: ANGINA EQUIVALENT Diagnosis Discharge Diagnosis (1) Ataxia: Status: Acute Code(s): R27.0 - Ataxia, unspecified (2) Chest pain: Status: Resolved Code(s): R07.9 - Chest pain, unspecified Qualifiers: Chest pain type: unspecified Qualified Code(s): R07.9 - Chest pain, unspecified Medications at Discharge Home Medications omeprazole 20 mg capsule,delayed release 40 mg PO QDAY 03/31/18 multivit with min-folic acid-lutein 400 mcg-250 mcg chewable tablet (Centrum S ilver) 1 tab PO .COMPLEX 04/02/18 loratadine 10 mg tablet (Claritin) 10 mg PO QDAY PRN Allergy Symptoms 01/27/19 aspirin 81 mg tablet,delayed release (Adult Low Dose Aspirin) 81 mg PO DAILY 02/24/20 atorvastatin 10 mg tablet 10 mg PO DAILY #90 tabs 04/23/21 warfarin 3 mg tablet 3 mg PO .COMPLEX #90 tabs 09/06/21 cholecalciferol (vitamin D3) 25 mcg (1,000 unit) capsule 1,000 unit PO BID 09/16/21 flecainide 50 mg tablet 50 mg PO Q12H #180 tabs 09/16/21 lisinopril 10 mg tablet 10 mg PO QDAY #90 tabs 12/02/21 metoprolol succinate 50 mg tablet,extended release 24 hr 50 mg PO BID #180 tabs 01/16/22 duloxetine 20 mg capsule,delayed release 1 cap PO DAILY 04/21/22 Hospital Course Operations None Procedures 2-D Echocardiogram Summary of Care Provided Minutes Spent on Discharge: 50 Hospital Course: 77-year-old female past medical history of paroxysmal atrial fibrillation, hypertension who presented to the emergency department with pain in head upper back, that has been progressively worsening, and located between his shoulder blades and radiates into her shoulders and into her's as well as her abdomen. Pain is described as heaviness. It has associated diaphoresis. Admitting EKG showed normal sinus rhythm. CTA of the chest in the ED was negative for acute dissection or any acute abnormality. Patient was admitted to the progressive care unit for stress test to rule out coronary disease. Patient was found the next morning to be very weak, she was a two-person assist. Patient walked into the hospital herself. She denied any tingling or numbness in her lower extremity. Brain CT was not remarkable. Cervical CT showed multilevel degenerative changes. Thoracic CT was unremarkable. Her nuclear stress test was also unremarkable. Teleneurology was consulted and recommended MRI of the brain as well as cervical and thoracic spines. MRI of the brain is unremarkable. Cervical spine MRI showed multilevel degenerative changes. MRI of the thoracic spine showed focal disc protrusion at T7/T8 with abutment of the cord but no maeve cord compression. Patient was reevaluated by PT and OT and found to be okay for discharge home with outpatient therapy. Patient was also referred to neurosurgery for further evaluation of thoracic spine MRI abnormality. On the day of discharge, patient was seen and examined. Denied any new complaints. She stated she felt improved. She has been ambulating around the room with a walker. Physical Exam Narrative Physical exam: General: Alert, Oriented x3, Cooperative, subconjunctival hemorrhages on the lateral aspect of the eyes HEENT: Atraumatic Oral: Moist Mucosa Neck: Supple Lungs: Diminished to auscultation Cardiovascular: HS I+II, regular, no murmurs Abdomen: Bowel Sounds Present, Soft, Non Tender Extremities: No edema Skin: No rashes, No breakdown Neurological: Ataxic, power is 5/5 in all extremities Psych/Mental Status: Appropriate Weight / BMI Weight Weight: 78.2 kg Body Mass Index (BMI) 30.5 ABG / Lab / Microbiology Data Result Diagrams: 04/23/22 04:55 04/23/22 04:55 Laboratory: Laboratory Results - last 24 hr 04/22/22 08:20: Folate 38.70 04/23/22 04:55: PT 32.6 H, INR 3.2 04/23/22 04:55: Vitamin B12 462 04/23/22 04:55: WBC 8.0, RBC 3.67 L, Hgb 11.8 L, Hct 35.7 L, MCV 97.3 D, MCH 32.2 H, MCHC 33.1 D, RDW Std Deviation 44.7 H, RDW Coeff of Nathaniel 12.6, Plt Count 261, MPV 10.6, Immature Gran % (Auto) 0.200, Neut % (Auto) 54.7, Lymph % (Auto) 35.2, [place] % (Auto) 8.5, Eos % (Auto) 1.0, Baso % (Auto) 0.4, Absolute Neuts (auto) 4.4, Absolute Lymphs (auto) 2.82, Nucleated RBC % 0 04/23/22 04:55: Sodium 141, Potassium 3.5, Chloride 109 H, Carbon Dioxide 26.0, Anion Gap 6, BUN 7, Creatinine 0.66, Estim Creat Clear Calc 38.35, Est GFR (MDRD) Af Amer 111, Est GFR (MDRD) Non-Af 92, BUN/Creatinine Ratio 10.6, Glucose 110 H, Calcium 8.3 L, Total Bilirubin 0.40, AST 24, ALT 27, Alkaline Phosphatase 68, Total Protein 6.0 L, Albumin 3.1 L, Globulin 2.9, Albumin/Globulin Ratio 1.1 Radiography Diagnostic Testing: Radiology Impression Brain MRI 04/22/22 14:34 IMPRESSION: Negative MRI brain without intravenous contrast. Electronically Signed: Brian Sandoval MD at 18:23 EDT Reading Location ID and State: [address] [place] [address] , Service support , D/C Instructions Discharge Diet: Low fat / Low cholesterol and 2000 mg Sodium Diet Meaningful Use Info Meaningful Use Diagnoses (Choose all that apply): None applicable Discharge Plan Admission Admit Date/Time: 04/21/22 23:22 Primary Reason for Your Visit: Chest discomfort, bilateral leg weakness Attending Provider: Elina Keller Primary Care Provider: Cat Moran Consulting Providers: Willie Cordero Instructions Additional Instructions / Restrictions: Continue to take the rest of your medications as prescribed. Follow-up with outpatient therapy as prescribed. Hold Coumadin tonight. Resume your Coumadin on 04/24/22 Discharge Orders/Prescriptions Prescriptions: Continued [id number] acid-lutein [Centrum Silver] 400-250 mcg tablet,chewable 1 tab PO .COMPLEX Label Comments: 1 tab PO q day Rx Instructions: 1 tab PO q day loratadine [Claritin] 10 mg tablet 10 mg PO QDAY PRN (Reason: Allergy Symptoms) omeprazole 20 mg capsule,delayed release(DR/EC) 40 mg PO QDAY cholecalciferol (vitamin D3) 1,000 unit capsule 25 mcg (1,000 unit) capsule 1,000 unit PO BID flecainide 50 mg tablet 50 mg PO Q12H Qty: 180 3RF duloxetine 20 mg capsule,delayed release(DR/EC) 1 cap PO DAILY Label Comments: TAKE 1 CAPSULE BY MOUTH ONCE DAILY aspirin [Adult Low Dose Aspirin] 81 mg tablet,delayed release (DR/EC) 81 mg PO DAILY atorvastatin 10 mg tablet 10 mg PO DAILY Qty: 90 3RF warfarin 3 mg tablet 3 mg PO .COMPLEX Qty: 90 3RF Protocol: Dose Management Condition: Thursday Dose/Route: 3 mg Instruction: 1 x 3 mg tablet Condition: Thursday Dose/Route: 3 mg Instruction: 1 x 3 mg tablet Condition: Thursday Dose/Route: 3 mg Instruction: 1 x 3 mg tablet Condition: Thursday Dose/Route: 3 mg Instruction: 1 x 3 mg tablet Condition: Dose/Route: 3 mg Instruction: 1 x 3 mg tablet Condition: Thursday Dose/Route: 3 mg Instruction: 1 x 3 mg tablet Condition: Thursday Dose/Route: 3 mg Instruction: 1 x 3 mg tablet Protocol Text: Adjustment Start Date: Thursday03/25/22 INR Value: 2.5 INR Date: 03/25/22 Recheck Date: 04/22/22 Rx Instructions: 3 mg PO daily lisinopril 10 mg tablet 10 mg PO QDAY Qty: 90 3RF metoprolol succinate 50 mg tablet extended release 24 hr 50 mg PO BID Qty: 180 3RF Referrals / Follow Up: Cat Moran DO [Primary Care Provider] - In 1 Week Bowen Hdz DO [STAFF PHYSICIAN] - Within 2 Weeks Disposition Disposition (needs filled in before D/C Order can be placed): Home, Self Care Charges/Coding Visit Charges Inpatient E&M: 55740 Disch Hosp
--- NOTE | 2022-04-23 15:51 | PHA.DC.MR ---
Pharmacy Service has performed discharge medication reconciliation for this patient. The patient's discharge medication list was reviewed for discrepancies and discrepancies were resolved. Home Medications omeprazole 20 mg capsule,delayed release 40 mg PO QDAY 03/31/18 multivit with min-folic acid-lutein 400 mcg-250 mcg chewable tablet (Centrum Silver) 1 tab PO .COMPLEX 04/02/18 loratadine 10 mg tablet (Claritin) 10 mg PO QDAY PRN Allergy Symptoms 01/27/19 aspirin 81 mg tablet,delayed release (Adult Low Dose Aspirin) 81 mg PO DAILY 02/24/20 atorvastatin 10 mg tablet 10 mg PO DAILY #90 tabs 04/23/21 warfarin 3 mg tablet 3 mg PO .COMPLEX #90 tabs 09/06/21 cholecalciferol (vitamin D3) 25 mcg (1,000 unit) capsule 1,000 unit PO BID 09/16/21 flecainide 50 mg tablet 50 mg PO Q12H #180 tabs 09/16/21 lisinopril 10 mg tablet 10 mg PO QDAY #90 tabs 12/02/21 metoprolol succinate 50 mg tablet,extended release 24 hr 50 mg PO BID #180 tabs 01/16/22 duloxetine 20 mg capsule,delayed release 1 cap PO DAILY 04/21/22
== END 2022-04-23 15:46 | disposition home or self-care (01) ==
LOC: ED 23:19 → PCU 23:23
PROVIDERS: Admitting Provider Hospitalist; Emergency Provider Emergency Medicine; PCP Family Medicine; Visit Provider Internal Medicine
DX: R27.0 Ataxia, unspecified (principal); I48.0 Paroxysmal atrial fibrillation; I20.8 Other forms of angina pectoris; M25.511 Pain in right shoulder; M79.601 Pain in right arm; E78.5 Hyperlipidemia, unspecified; M47.14 Other spondylosis with myelopathy, thoracic region; Z79.82 Long term (current) use of aspirin; R53.1 Weakness; M54.9 Dorsalgia, unspecified; I10 Essential (primary) hypertension; R91.1 Solitary pulmonary nodule; M79.602 Pain in left arm; M25.512 Pain in left shoulder; Z79.01 Long term (current) use of anticoagulants; Z79.899 Other long term (current) drug therapy
CPT/HCPCS: 36415; 70450; 70551; 71045; 71275; 72125; 72128; 72141; 72146; 78452; 80048; 80053; 80061; 80076; 82550; 82607; 82746; 84484; 85025; 85610; 93005; 93017; 96361; 96374; 96375; 96376; 97163; 97167; 97530; 97535; 99218; 99285; A9500; J7030; Q9967; A4216; G0378; J2405; J2785

== ENCOUNTER 2022-05-16 13:56 | Outpatient (RCR) | payer MEDICARE, OTHER, SELFPAY ==
[2022-04-18 08:14] VITALS: BMI 30.7
[2022-05-16 15:20] LABS: International Normalized Ratio 2.3; Prothrombin Time (Protime)PT. 24.8 SECONDS (11.7-14.9)
[2022-05-19 13:07] LABS: PROEL- A/G Ratio 1.3 (0.7-1.7); PROEL- Alpha-1 Globulin 0.3 g/dL (0.0-0.4); PROEL- Beta Globulin 1.2 g/dL (0.7-1.3); PROEL- Gamma Globulin 0.7 g/dL (0.4-1.8); PROEL- Globulin, Total 3.2 g/dL (2.2-3.9); PROEL- TOTAL PROTEIN 7.2 g/dL (6.0-8.5)
== END 2022-05-18 03:25 | disposition home or self-care (01) ==
LOC: MTLAB 13:56
PROVIDERS: Family Provider Family Medicine; PCP Family Medicine; Referring Provider Internal Medicine Cardiovascular Disease; Visit Provider Internal Medicine Cardiovascular Disease
DX: I48.0 Paroxysmal atrial fibrillation (principal); Z79.01 Long term (current) use of anticoagulants
CPT/HCPCS: 36415; 84165; 85610

== ENCOUNTER → 2022-05-19 | Outpatient (CLI) | payer MEDICARE, OTHER, SELFPAY ==
--- NOTE | 2022-05-19 14:44 | RAD_ITS ---
STUDY: X-RAY - LEFT FOOT CLINICAL: Female, 77 years old. INJURY TECHNIQUE: 3 view(s) of the foot. COMPARISON: None. FINDINGS: An acute oblique fracture is present through the base of the fourth proximal phalanx with mild displacement. A second acute oblique corner fracture is present at the base of the fifth proximal phalanx with mild displacement as well. Normal talus, calcaneus, and tarsal bones. Normal visualized subtalar, talonavicular, calcaneocuboid, tarsal and tarsometatarsal articulations. Normal metatarsi. Normal metatarsophalangeal joint of the great toe. Normal tibial and fibular sesamoid bones. Normal interphalangeal joint of the great toe. Normal phalanges of the great toe. Normal second through fifth metatarsophalangeal joints. There is mild to moderate narrowing of the DIP joints of the second through fifth digits. Mild soft tissue swelling is present across the forefoot. RAD/Foot min 3 Views IMPRESSION: 1. Acute fractures of the fourth and fifth proximal phalanges Electronically Signed: Mathieu Luis MD at 15:59 EDT ,
== END | disposition home or self-care (01) ==
PROVIDERS: PCP Family Medicine; Referring Provider Family Medicine; Visit Provider Family Medicine
DX: S99.922A Unspecified injury of left foot, initial encounter (principal)
CPT/HCPCS: 73630

== ENCOUNTER 2022-08-04 15:25 | Outpatient (RCR) | payer MEDICARE, OTHER, SELFPAY ==
[2022-05-18 03:25] VITALS: BMI 30.7
[2022-08-04 18:09] LABS: International Normalized Ratio 1.6; Prothrombin Time (Protime)PT. 18.8 SECONDS (11.7-14.9)
== END 2022-08-04 18:00 | disposition home or self-care (01) ==
LOC: MTLAB 15:25
PROVIDERS: Family Provider Family Medicine; PCP Family Medicine; Referring Provider Internal Medicine Cardiovascular Disease; Visit Provider Internal Medicine Cardiovascular Disease
DX: I48.0 Paroxysmal atrial fibrillation (principal); Z79.01 Long term (current) use of anticoagulants
CPT/HCPCS: 36415; 85610

== ENCOUNTER 2022-09-10 13:01 | Outpatient (RCR) | payer MEDICARE, OTHER, SELFPAY ==
[2022-08-19 10:25] VITALS: BMI 30.7
[2022-08-27 15:19] LABS: Prothrombin Time (Protime)PT. 30.7 SECONDS (11.7-14.9)
[2022-09-10 15:34] LABS: International Normalized Ratio 2.7; Prothrombin Time (Protime)PT. 28.5 SECONDS (11.7-14.9)
== END 2022-09-17 18:00 | disposition home or self-care (01) ==
LOC: MTLAB 13:01
PROVIDERS: Family Provider Family Medicine; PCP Family Medicine; Referring Provider Internal Medicine Cardiovascular Disease; Visit Provider Internal Medicine Cardiovascular Disease
DX: I48.0 Paroxysmal atrial fibrillation (principal); Z79.01 Long term (current) use of anticoagulants; I48.92 Unspecified atrial flutter; I47.1 Supraventricular tachycardia
CPT/HCPCS: 36415; 85610

== ENCOUNTER 2022-10-02 14:00 | Outpatient (RCR) | payer MEDICARE, OTHER, SELFPAY ==
--- NOTE | 2022-09-22 16:10 | HP.PTEVAL_ITS ---
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 Date of Evaluation: 09/22/22 Physical Therapist: Key Farley PT, Cert MDT - Visit Plan Frequency: 2-3x /Week Duration: 4-6 Weeks Plan: FOCUS ON BALANCE AND LE STRENGTHENING AND CORE STABILITY. POSTURE CORRECTION AND STRENGTHENING. INSTRUCTION IN SAFE BODY MECHANICS. - Subjective Work/Leisure: RETIRED. LIVES ALONE. ONE STORY HOME WITH NO STEPS EXCEPT ONE INTO [place]. Present symptoms: INTERMITTENT NECK PAIN AT NIGHT SOMETIMES. ALSO GETS NECK PAIN IF SHE OVER-LIFTS. NO LEFT UE SX'S. INTERMITTENT BURNING PAIN IN UPPER R ARM AND MORE SO IN THE LOWER R ARM THAT PATIENT RELATES TO FALLING NOT HER NECK. SHE ALSO REPORTS RIGHT UE WEAKNESS THAT DID START BEFORE HER NECK SURGERY AND SHE DOES RELATE THE WEAKNESS TO HER NECK PROBLEM. JORGE FINGER TIP TINGLING. JORGE LE PAIN, WEAKNESS AND SPASMS. JORGE FOOT NUMBNESS. FEELING UPPER LEG, BACK AND STOMACH BURNING SX'S. Present since: 10 OR MORE YEARS AGO BUT SUDDEN EPISODE OF INCREASED SX'S LEADING TO SURGERY. Pain Scale: Worst - 6/10 Least - 0/10. Currently: 10/28. Commenced as a result of: NO APPARENT REASON. PATIENT RELATES IT TO WEAR AND TEAR. NO SPECIFIC INJURY THAT SHE CAN RECAL. Worse: SOMETIMES AT NIGHT, OVER-DOING IT WITH LIFTING OR ACTIVITIES, NEEDS TO USE WALKER AFTER LAYING DOWN OR SITTING DOWN FOR TOO LONG. Better: [place], LAYING ON RIGHT OR LEFT SIDE, HEATING PAD ON NECK OR BACK, SITTING. Disturbed sleep: YES. Previous history/Previous treatment: THIS IS FIRST AND ONLY NECK SURGERY - ACDF 06/19/[address] MENCHACA AT [facility]. NO NECK INJECTIONS. ONLY TRIED PHYSICAL THERAPY BEFORE SURGERY AND SEVERAL EPISODES OF CARE WITH PT. ONE CONSULT WITH DR. MOTT - HE REFERRED HER TO DR. MENCHACA. BOWEL AND BLADDER DYSFUNCTION: STILL HAVING SOME BOWEL AND BLADDER INCONTINENCE BUT BETTER THAN IT WAS BEFORE SURGERY. Dizziness: NO. Tinnitis: NO. Nausea: NO. Shortness of Breath: NO. Difficulty Swollowing: NO. Gait: PATIENT REPORTS SHE CAN DO PRETTY GOOD ONCE SHE GETS GOING BUT SHE HAS TO REALLY CONCENTRATE WHEN SHE WALKS OR SHE FALLS. SHE REPORTS SHE WALKS AROUND HER HOUSE WITHOUT ANY AD'S BUT USES ROLLATOR AT HOME NEEDED BUT USUALLY USES CANE. STATES SHE WAS FALLING BEFORE THE SURGERY AND HAS FALLEN TWICE SINCE THE SURGERY. THE LAST FALL WAS LAST WEEK IN [place] AND SHE WAS WALKING WITHOUT HER CANE. SHE REPORTS SHE WAS WALKING IN S[place] AND WENT DOWN. SINCE THE SURGERY SHE DENIES ANY INJURIES FROM HER FALLS. BEFORE SURGERY SHE REPORTS SEVERAL FALLS THAT RESULTED IN RIGHT UE INJURY AND TWO L TOE FRACTURES. STILL HAVING SOME TOE AND R UE PAIN FROM THOSE FALLS. PATIENT RELATES HER MOST RECENT FALL TO BEING ON THE SAND AND BEING VERY TIRED FROM A LOT OF WALKING THAT DAY. Unexplained weight loss: NO. Imaging: STATES THE SURGEON TOLD HER AT HER LAST FOLLOW UP SEP 04 2022 THAT HER IMAGING LOOKED GOOD AND SHE COULD START DRIVING AGAIN. PMH/Recent major surgery: SMALL NODULE FOUND IN LUNG WHEN GETTING IMAGING FOR SPINE - CURRENTLY UNDER THE CARE OF [facility] (DR. LILLY SAPP). SHE REPORTS THEY ARE JUST MONITORING THE NODULE AT THIS TIME. OTHER: PATIENT REPORTS SHE HAS A 10 LB LIFTING LIMIT. PATIENT REPORTS IF THE BURNING THAT SHE GETS THROUGHOUT HER BODY WHEN SOMETHING TOUCHES HER CONTINUES INTO SEPTEMBER HER SURGEON WANTS TO SEE HER AGAIN. SHE REPORTS IT IS GETTING BETTER. OTHER: PATIENT REPORS SHE IS DOING SO MUCH BETTER WITH HER NECK AND HER GOAL FOR THERPAY IS TO GET HER LEGS STRONGER AND WORKING BETTER. SHE REPORTS THE SPASMS SHE GETS IN HER LEGS ARE PAINFUL AND SHE DOESN'T TRUST HER LEGS. - Objective Sitting Posture/Standing Posture: FH. RSH'S. Active Correction of posture: NE AND ONLY ABLE TO PARTIALLY CORRECT. Other Observations: PATIENT AMBULATES INDEP'LY INTO PT WITH A STRAIGHT CANE WITH DECREASED CADANCE AND UNSTEADY GAIT. THIS PT ADVISED USE OF ROLLATOR FOR PROLONGED WALKING AND OPEN SPACES AND CANE OR WALKER IN HOME AT ALL TIMES FOR SAFETY. PATIENT REPORTS SHE IS TRYING TO USE THE CANE MORE TO GET STRONGER BUT UNDERSTANDS THE RISK OF FALLING AND SHE ADMITS TO WALKING VERY TENTATIVE DUE TO FEAR OF FALLING. SHE ALSO REPORTS HER LEGS SOMETIMES SPASM AND THIS IS PAINFUL AND CAUSES MORE DIFFICULTY WITH WALKING AT TIMES ESPECIALLY LLE. Sensory deficit: JORGE LE LIGHT TOUCH SENSATIVITY THROUGHOUT WITH TESTING. ROM deficit: TIGHT JORGE LE HIP FLEXORS, HS'S AND GASTROC SOLEUS COMPLEX'S. JORGE UE ACTIVE ELEVATION DECREASED BY APPROX 30% AND PATINENT DENIES PAIN WITH TESTING. Motor deficit: R HAND DOMINANT WITH R WELDING ESTIMATOR STRENGTH OF 35 LBS AND L 25 LBS. JORGE UE STRENGTH GROSSLY 4-/5. JORGE LE STRENGTH GROSSLY 4-/5. NECK ROM NOT TESTED TODAY PATIENT WANTS TO FOCUS ON WALKING. SEE STS AND TUG TEST TIME BELOW. - Balance/Special Test Scores Oswestry Neck Score: 13 TUG Test Time Seconds: 20.07 30 Second Chair Rise Test Seconds: 6 - Goals Goal 1:: PATIENT WILL COMPLETE 10 STANDS IN 30 SECS WITHOUT UE ASSIST TO DEMONSTRATE IMPROVED FUNCTIONAL STRENGTH Goal Time Frame: 4-6 Weeks Goal 2:: PATIENT WILL COMPLETE TUG IN < 15 SECS SAFE AND INDEP WITH CANE TO DEMONSTRATE IMPROVED GAIT STABILITY Goal Time Frame: 4-6 Weeks Goal 3:: PATIENT WILL AMBULATE 600 FEET WITH CANE WITH SUPERVISION X 1 TO IMPROVE ACTIVITY TOLERANCE Goal Time Frame: 4-6 Weeks Goal 4:: PATIENT WILL ASCEND AND DESCEND SINGLE CURB WITH LEAST ASSISTIVE DEVICE AND LEAST SUPERVISION FOR COMMUNITY SAFETY. Goal Time Frame: 4-6 Weeks Goal 5:: PATIENT WILL BE INDEP WITH A HEP FOR CONTINUED IMPROVEMENT ONCE FORMAL PHYSICAL THERAPY CONCLUDES. Goal Time Frame: 4-6 Weeks - Anticipated Interventions Patient/Client Instruction: Educate patient on: Condition, Plan of Care, Risk Factors For the Purpose of:: To improve self management Therapeutic Exercise to Include: Strength training, Endurance training, Balance training, Body mechanics, Postural training, Flexibilty training, Gait and locomotor training, Neuromotor development For the Purpose of:: To increase ROM, To improve muscle performance and motor function, To improve ability of physical actions for home/community/work/leisure, To improve gait and locomotor functions Thank you for the opportunity to evaluate your patient. For Medicare and Medicare HMO plans, please review the plan of care and approve it. It will need to be FAXED BACK to us at [phone] for Medicare purposes. For Medicare only, by signing this I certify the plan of care. Please let me know if there are questions or concerns regarding this plan of care. Physician Signature: Date :
--- NOTE | 2022-10-07 10:00 | HP.PT.NRP ---
QUYEN LEVI was seen in my office for initial evaluation on 09/22/22. The following Plan of Care was established for this patient: Initial Frequency: 2-3x /Week Initial Duration: 4-6 Weeks Patient/Client Instruction: Educate patient on: Condition, Plan of Care, Risk Factors For the Purpose of:: To improve self management Therapeutic Exercise to Include: Strength training, Endurance training, Balance training, Body mechanics, Postural training, Flexibilty training, Gait and locomotor training, Neuromotor development For the Purpose of:: To increase ROM, To improve muscle performance and motor function, To improve ability of physical actions for home/community/work/leisure, To improve gait and locomotor functions This patient was last seen in our office . Pertinent comments regarding their Physical therapy will appear below: PATIENT CALLED TO REPORT SHE FEELS BETTER DOING HER HEP AT HOME AT HER OWN PACE VS COMING TO PT. PATIENT CANCELLED ALL REMAINING KRISTIE'TS AND WILL CONTACT US IF SHE WANTS/NEEDS TO COME BACK. At this point I will be discontinuing this patient from physical therapy. I would be happy to see this patient again in the future if found appropriate by the physician. Thank you! Key Farley, PT, Cert MDT Balance/Gait/Functional tests - Balance/Special Test Scores Oswestry Neck Score: 13 TUG Test Time Seconds: 20.07 Tug Test: 20-30sec.=variable mobility 30 Second Chair Rise Test Seconds: 6
== END 2022-10-02 19:00 | disposition home or self-care (01) ==
LOC: PT 14:00
PROVIDERS: PCP Family Medicine
DX: M50.020 Cervical disc disorder with myelopathy, mid-cervical region, unspecified level (principal)
CPT/HCPCS: 97110; 97162; 97530

== ENCOUNTER → 2022-10-22 | Outpatient (CLI) | payer MEDICARE, OTHER, SELFPAY ==
--- NOTE | 2022-10-22 13:13 | CT_ITS ---
STUDY: CT Chest W/O Contrast Injection 10/22/2022 1:55 PM REASON FOR EXAM: Female, 77 years old. Lung Nodule Individualized dose optimization techniques were used for this CT. TECHNIQUE: Transaxial imaging was performed withoutIV contrast material. COMPARISON: 04.21.22. FINDINGS: There are degenerative changes of the shoulders. There is no pneumothorax. There is no demonstrated pleural abnormality. Spinal fusion hardware noted. Indeterminate 6.7 x 2.2 mm pulmonary nodule at the left upper lobe with pleural extension. No associated calcifications. Atypical reticular nodular process involving the posterior aspect of the right upper lobe is stable and may relate to fibrosis. Normal heart and pericardium with no evidence for calcifications of the coronary arteries. Normal mediastinum. Normal hilar regions. Normal pulmonary arteries. There is atherosclerotic calcification of the aortic arch with tortuosity and elongation of the aortic arch and descending thoracic aorta. There are multi-level degenerative changes of the thoracic spine. There are no acute findings of the upper abdomen. CT/Chest without Contrast IMPRESSION: There is a stable left upper lobe nodule. Fleischner Society Guidelines (MacMahon, et al. Radiology 2017; 284(1):228-43) suggest the following. For low-risk patients, no follow-up is necessary. For high-risk patients (smoking history or other known risk factors) an optional chest CT at 12 months could be performed. Electronically Signed: Brian Sandoval MD at 14:11 EST ,
== END | disposition home or self-care (01) ==
LOC: CT 13:13
PROVIDERS: PCP Family Medicine; Referring Provider Internal Medicine Critical Care Medicine; Visit Provider Internal Medicine Critical Care Medicine
DX: R91.1 Solitary pulmonary nodule (principal)
CPT/HCPCS: 71250

== ENCOUNTER → 2022-10-23 | Outpatient (CLI) | payer MEDICARE, OTHER, SELFPAY ==
--- NOTE | 2022-10-23 08:29 | BI_ITS ---
MAMMOGRAPHY - BILATERAL SCREENING REASON FOR EXAM: Female, 77 years old. Routine annual screening examination. PERTINENT HISTORY: Non-contributory. TECHNIQUE: Digital bilateral breast amanda (3D mammographic acquisition) in the CC and MLO projections. 2-D mediolateral oblique (MLO) and craniocaudad (CC) views of both breasts were obtained. CAD: Full Field Digital Mammography with Computer Added Detection was performed. COMPARISON: Comparison is made with prior study dated 08/21/2021 and 08/14/2020. FINDINGS: Breast Composition: The breasts are almost entirely fatty. There are no dominant masses or suspicious calcifications. No other significant abnormalities are identified. There has been no significant change since the prior study. BI/SCRN MAMM (CAD)W/AMANDA BILAT IMPRESSION: Stable bilateral screening mammogram. Yearly follow-up mammogram recommended. (A) ASSESSMENT CATEGORY: BIRADS Category 1: Negative. A letter regarding these results will be sent to the patient by the facility within 30 days. Approximately 10% of breast cancers are not detected by mammography. A normal mammogram should not delay biopsy of a clinically suspicious abnormality. [id number] Electronically Signed: Vernon Pulliam MD at 10:10 EST ,
== END | disposition home or self-care (01) ==
LOC: OPBI 08:25
PROVIDERS: PCP Family Medicine; Visit Provider Family Medicine
DX: Z12.31 Encounter for screening mammogram for malignant neoplasm of breast (principal); I48.0 Paroxysmal atrial fibrillation; I48.92 Unspecified atrial flutter; I47.1 Supraventricular tachycardia; E78.5 Hyperlipidemia, unspecified; Z79.01 Long term (current) use of anticoagulants
CPT/HCPCS: 36415; 77063; 77067; 80061; 80076; 85610

== ENCOUNTER 2022-11-13 13:06 | Outpatient (RCR) | payer MEDICARE, OTHER, SELFPAY ==
[2022-09-18 02:24] VITALS: BMI 30.7
[2022-10-23 09:17] LABS: International Normalized Ratio 1.9; Prothrombin Time (Protime)PT. 21.4 SECONDS (11.7-14.9)
[2022-10-23 09:24] LABS: AST(SGOT) 23 U/L (15-37); Alanine Aminotransfer ALT/SGPT 27 U/L (13-56); Alkaline Phosphatase 106 U/L (45-117); Bilirubin, Direct 0.13 mg/dL (0.00-0.30); Cholesterol 242 mg/dL (200); Globulin 3.8 g/dL (2.2-4.2); High Density Lipoprotein 54 mg/dL; Protein, Total 7.8 g/dL (6.4-8.2); Triglycerides 254 mg/dL; Very Low Density Lipoprotein 51 mg/dL (5-40)
[2022-11-13 15:52] LABS: International Normalized Ratio 2.6; Prothrombin Time (Protime)PT. 27.7 SECONDS (11.7-14.9)
== END 2022-11-13 15:06 | disposition home or self-care (01) ==
LOC: MTLAB 13:06
PROVIDERS: Nurse Practitioner Family; Family Provider Family Medicine; PCP Family Medicine; Referring Provider Internal Medicine Cardiovascular Disease; Visit Provider Internal Medicine Cardiovascular Disease
DX: I48.0 Paroxysmal atrial fibrillation (principal); Z79.01 Long term (current) use of anticoagulants; I48.92 Unspecified atrial flutter; I47.1 Supraventricular tachycardia
CPT/HCPCS: 36415; 80061; 80076; 85610

== ENCOUNTER 2022-12-16 11:08 | Outpatient (RCR) | payer MEDICARE, OTHER, SELFPAY ==
[2022-11-19 07:23] VITALS: BMI 30.7
[2022-12-16 11:20] LABS: INR Fingerstick 2.6; Prothrombin Time Fingerstick 29.6 SEC (11.7-14.9)
== END 2022-12-16 18:00 | disposition home or self-care (01) ==
LOC: MTLAB 11:08
PROVIDERS: Family Provider Family Medicine; PCP Family Medicine; Referring Provider Internal Medicine Cardiovascular Disease; Visit Provider Internal Medicine Cardiovascular Disease
DX: I48.0 Paroxysmal atrial fibrillation (principal); Z79.01 Long term (current) use of anticoagulants
CPT/HCPCS: 36415; 36416; 85610

== ENCOUNTER 2023-02-23 09:48 | Outpatient (RCR) | payer MEDICARE, OTHER, SELFPAY ==
[2022-12-16 23:13] VITALS: BMI 30.7
[2023-02-23 12:18] LABS: International Normalized Ratio 2.5; Prothrombin Time (Protime)PT. 27.3 SECONDS (11.7-14.9)
== END 2023-02-23 10:48 | disposition home or self-care (01) ==
LOC: MTLAB 09:48
PROVIDERS: Family Provider Family Medicine; PCP Family Medicine; Referring Provider Internal Medicine Cardiovascular Disease; Visit Provider Internal Medicine Cardiovascular Disease
DX: I48.0 Paroxysmal atrial fibrillation (principal); Z79.01 Long term (current) use of anticoagulants; I48.92 Unspecified atrial flutter; I47.1 Supraventricular tachycardia
CPT/HCPCS: 36415; 85610

== ENCOUNTER → 2023-02-28 | Outpatient (CLI) | payer MEDICARE, OTHER, SELFPAY ==
--- NOTE | 2023-02-28 07:32 | MRI_ITS ---
INDICATION: Low back pain. Left hip pain. EXAMINATION: MR Spine Lumbar W/O Contrast TECHNIQUE: Multiplanar and multisequence MR images of the lumbar spine. IV Contrast Dosage and Agent: None. COMPARISON: Lumbar spine and left hip x-rays February 23, 2023. MRI cervical and thoracic spine exams April 23, 2022. CT abdomen and pelvis July 03, 2021. FINDINGS: VERTEBRAE: Vertebral body heights are preserved. No marrow edema or fracture. Modic type II endplate change at L4-5 with near complete intervertebral disc height loss and small vacuum phenomenon. VERTEBRAL ALIGNMENT: Minimal degenerative grade 1 anterolisthesis of L5 upon S1. There is preservation of the normal lumbar lordosis. CORD: Normal position and signal intensity of the conus medullaris. Conus medullary terminates normally at L2. SOFT TISSUES: Aorta is normal in caliber. Extrarenal pelves. AXIAL IMAGES: T12-L1, L1-2: Unremarkable. L2-3: Mild disc bulging. Facets are intact. No spinal canal or foraminal narrowing. L3-4: Mild, diffuse disc bulging. There is mild to moderate facet arthropathy and ligamentum flavum thickening. Mild spinal canal stenosis. Mild left greater than right foraminal narrowing. L4-5: Chronic discogenic changes, endplate osteophyte formation. There is moderate facet degenerative change. Mild spinal canal stenosis. Subarticular recess narrowing and contact with the traversing L5 nerve roots bilaterally. Mild right greater than left foraminal narrowing. L5-S1: Disc uncovering/disc bulging. There is moderate bilateral facet arthropathy and ligamentum flavum thickening. Exophytic synovial cyst from the left facet with mass effect upon the left S1 nerve root. Mild overall spinal canal narrowing. Mild left greater than right foraminal narrowing. MRI/Spine Lumbar (Routine) IMPRESSION: Lumbar spondylosis changes most significant at L5-S1 and L4-5 as described. Electronically Signed: Mukund Diaz MD at 16:22 EDT ,
== END | disposition home or self-care (01) ==
LOC: MRI 08:08
PROVIDERS: PCP Family Medicine; Referring Provider Orthopaedic Surgery; Visit Provider Orthopaedic Surgery
DX: M51.36 Other intervertebral disc degeneration, lumbar region (principal)
CPT/HCPCS: 72148

== ENCOUNTER → 2023-04-15 | Outpatient (CLI) | payer MEDICARE, OTHER, SELFPAY | END | disposition home or self-care (01) | PROVIDERS: PCP Family Medicine; Visit Provider Family Medicine | DX: N39.0 Urinary tract infection, site not specified (principal) | CPT/HCPCS: 87077; 87086; 87088; 87186 ==

== ENCOUNTER 2023-04-22 09:30 | Outpatient (RCR) | payer MEDICARE, OTHER, SELFPAY ==
--- NOTE | 2023-03-26 16:07 | HP.PTEVAL ---
Patient's Visit Information QUYEN LEVI is a 78 year old F referred to Physical Therapy by Dr. 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 Date of Evaluation: 03/26/23 Physical Therapist: Rm Patel - Visit Plan Frequency: 2x /Week Duration: 6 Weeks Plan: Continue with focusing on LE strengthening and balance exercises. Add some general UE strengthening as well. - Subjective Pt. is a 78 y.o. female who reports that last April she had some achy pain in her mid back and eventually went to the hospital. She had imaging which showed cervical myelopathy. Pt. had cervical fusion and disectomy in June last year. Pt. states that she has noticed that she is just not as strong as she used to be. Pt. is currently ambulating with a cane and was using a walker before she had the surgery. Pt. reports two falls since last June and had several before her cervical spine surgery. She also reports that she recently had imaging of her lumbar spine which showed a cyst in her lumbar spine area. Pt. reports constant numbness and tingling in both of her feet and occasionally in her lower leg as well has her fingers. Pt. denies any change in her bowel or bladder function. She has difficulty with walking, walking on uneven ground, squatting, ascending/descending stairs, lifting things, bending over, housework, and gardening. Pt. 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 Her goal with physical therapy is to get her legs stronger. Pt. had some therapy after her surgery last year. Pt. denies any pain currently but does have occasional low back pain. Her PMH includes A-fib, TIA, cervical fusion in June 2022, tonsillectomy, and hysterectomy. Pt. lives alone in a condo. Her hobbies include going out to eat and keeping busy. - Objective Cervical AROM- WFL for all motions. UE AROM- WNL for all motions. Left shoulder strength flexion 5/5, abduction 4/5, ER 4+/5, IR 5/5. Right shoulder strength flexion 5/5, abduction 4/5, ER 4+/5, IR 5/5. Left hip strength flexion 4+/5, abduction 4/5, adduction 4+/5, extension 4/5, knee flexion 5/5, knee extension 4+/5, ankle DF 5/5, PF 5/5. Right hip strength flexion 4+/5, abduction 4/5, adduction 4+/5, extension 4/5, knee flexion 5/5, knee extension 4+/5, ankle DF 5/5, PF 5/5. Tandem stance right 30 secs, left 30 secs. SLS on right 14 secs, left 3 secs. 30 secs sit to stand- x 9 with no arm assist. Gait- Pt. ambulates with SPC and no gait deviations. - Balance/Special Test Scores Oswestry Low Back Score: 15 - Goals Goal 1:: Pt. will improve LE strength to 4+/5 for all motions in order to improve stability and balance. Goal Time Frame: 4-6 Weeks Goal 2:: Pt. will report no falls. Goal Time Frame: 4-6 Weeks Goal 3:: Pt. will be able to complete at least 10 sit to stands with no arm assist in 30 secs in order to improve mobility. Goal Time Frame: 4-6 Weeks Goal 4:: Pt. will be able to walk with SPC for at least 20 minutes with no rest break in order to improve endurance. Goal Time Frame: 4-6 Weeks Goal 5:: Pt. will be able to ascend/descend a flight of stairs with alternating step pattern with unilateral handrail and SPC. Goal Time Frame: 4-6 Weeks Goal 6:: Pt. will improve Oswestry Disability Index < 20% impairment in order to improve mobility. Goal Time Frame: 4-6 Weeks - Rehabilitation Potential Physical Therapy Diagnosis: Decreased LE strength, UE strength, and balance. Pt. presents with history of cervical myelopathy and cervical fusion last year. Rehabilitation Potential: Good - Anticipated Interventions Patient/Client Instruction: Educate patient on: Condition, Plan of Care For the Purpose of:: To improve ability to perform ADL's, To improve performance and independence with ADL's, To assume or resume ADL's, To improve tolerance to ADL's Therapeutic Exercise to Include: Strength training, Endurance training, Balance training, Gait and locomotor training Comment: Focus mostly on LE strengthening and balance exercises. Add some shoulder strengthening as well. For the Purpose of:: To improve ability to perform ADL's, To improve performance and independence with ADL's, To improve gait and locomotor functions, To improve balance, To assume or resume ADL's, To improve tolerance to ADL's Functional Training to Include: ADL Training, Gait training For the Purpose of:: To improve gait and locomotor functions, To improve balance, To improve safety with gait Assistive Devices: Cane For the Purpose of:: To improve gait and locomotor functions, To improve balance, To improve safety with gait, To improve safety Thank you for the opportunity to evaluate your patient. For Medicare and Medicare HMO plans, please review the plan of care and approve it. It will need to be FAXED BACK to us at [phone] for Medicare purposes. For Medicare only, by signing this I certify the plan of care. Please let me know if there are questions or concerns regarding this plan of care. Physician Signature: Date:
--- NOTE | 2023-04-28 13:35 | HP.PT.NRP ---
Patient Information Patient Information: QUYEN LEVI was seen in my office for initial evaluation on 03/26/23. The following Plan of Care was established for this patient: POC Established Initial Frequency: 2x /Week Initial Duration: 6 Weeks Anticipated Interventions Patient/Client Instruction: Educate patient on: Condition and Plan of Care For the Purpose of:: To improve ability to perform ADL's, To improve performance and independence with ADL's, To assume or resume ADL's and To improve tolerance to ADL's Therapeutic Exercise to Include: Strength training, Endurance training, Balance training and Gait and locomotor training For the Purpose of:: To improve ability to perform ADL's, To improve performance and independence with ADL's, To improve gait and locomotor functions, To improve balance, To assume or resume ADL's and To improve tolerance to ADL's Functional Training to Include: ADL Training and Gait training For the Purpose of:: To improve gait and locomotor functions, To improve balance and To improve safety with gait Assistive Devices: Cane For the Purpose of:: To improve gait and locomotor functions, To improve balance, To improve safety with gait and To improve safety Last Seen Last Seen: This patient was last seen in our office . Pertinent comments regarding their Physical therapy will appear below: THIS PT REC'D A NOTE TO CALL PATIENT. PATIENT STATES I AM NO BETTER AND I AM HAVING A PROBLEM WITH MY SHOULDER WITH PAIN RADIATING UP INTO HEAD. PATIENT REPORTS HER R LEG IS GETTING STRONGER BUT LEFT LEG ISN'T. PLANS TO FOLLOW UP WITH DR MOTT IN A WEEK OR SO. STATES SHE JUST INS'T IMPROVING WITH PT SO GOING TO CANCEL AT THIS TIME. STATES SHE WANTS US TO CLOSE HER CHART. STATES SHE PLANS TO CONTINUE HER HEP AND WALKING WITH HER WALKER. SHE REPORTS DR. MOTT MIGHT RECOMMEND AN INJECTION AND SHE WILL FIND OUT AT FOLLOW UP NEXT WEEK. At this point I will be discontinuing this patient from physical therapy. I would be happy to see this patient again in the future if found appropriate by the physician. Thank you! Key Farley, PT, Cert MDT Balance/Gait/Functional tests Balance/Special Test Scores Oswestry Low Back Score: 15
== END 2023-04-22 19:00 | disposition home or self-care (01) ==
LOC: PT 09:30
PROVIDERS: PCP Family Medicine; Referring Provider Orthopaedic Surgery; Visit Provider Orthopaedic Surgery
DX: M71.38 Other bursal cyst, other site (principal); G95.89 Other specified diseases of spinal cord
CPT/HCPCS: 97110; 97162

== ENCOUNTER 2023-05-11 09:53 | Outpatient (RCR) | payer MEDICARE, OTHER, SELFPAY ==
[2023-03-19 08:05] VITALS: BMI 30.7
[2023-05-11 12:48] LABS: International Normalized Ratio 3.6; Prothrombin Time (Protime)PT. 36.1 SECONDS (11.7-14.9)
[2023-05-11 13:00] LABS: AST(SGOT) 25 U/L (15-37); Alanine Aminotransfer ALT/SGPT 37 U/L (13-56); Albumin, Serum 3.7 g/dL (3.2-5.0); Alkaline Phosphatase 99 U/L (45-117); Anion Gap 7 (5-15); BUN 21 mg/dL (7-18); BUN/Creat Ratio 23.3 RATIO (10-20); Bilirubin, Direct 0.13 mg/dL (0.00-0.30); Calcium,Total 9.1 mg/dL (8.5-10.1); Chloride 106 mmol/L (98-107); Cholesterol 247 mg/dL (200); EST Glomerular Filtration Rate 64 mL/min (>60); Est Glom Filt Rate - Afr Amer 77 mL/min (>60); Globulin 3.7 g/dL (2.2-4.2); Glucose 118 mg/dL (74-106); High Density Lipoprotein 50 mg/dL; Potassium 4.2 mmol/L (3.5-5.1); Protein, Total 7.4 g/dL (6.4-8.2); Sodium Level 137 mmol/L (136-145); Triglycerides 405 mg/dL
== END 2023-05-18 18:00 | disposition home or self-care (01) ==
LOC: MTLAB 09:53
PROVIDERS: Nurse Practitioner Family; Family Provider Family Medicine; PCP Family Medicine; Referring Provider Internal Medicine Cardiovascular Disease; Visit Provider Internal Medicine Cardiovascular Disease
DX: I48.0 Paroxysmal atrial fibrillation (principal); Z79.01 Long term (current) use of anticoagulants
CPT/HCPCS: 36415; 80048; 80061; 80076; 85610

== ENCOUNTER 2023-06-16 08:49 | Outpatient (RCR) | payer MEDICARE, OTHER, SELFPAY ==
[2023-05-19 02:19] VITALS: BMI 30.7
[2023-06-04 11:10] LABS: International Normalized Ratio 2.7; Prothrombin Time (Protime)PT. 28.9 SECONDS (11.7-14.9)
[2023-06-16 09:27] LABS: International Normalized Ratio 1.1; Prothrombin Time (Protime)PT. 13.8 SECONDS (11.7-14.9)
== END 2023-06-16 18:00 | disposition home or self-care (01) ==
LOC: LAB 08:49
PROVIDERS: Family Provider Family Medicine; PCP Family Medicine; Referring Provider Internal Medicine Cardiovascular Disease; Visit Provider Internal Medicine Cardiovascular Disease
DX: I48.0 Paroxysmal atrial fibrillation (principal); Z79.01 Long term (current) use of anticoagulants; I47.1 Supraventricular tachycardia; I48.92 Unspecified atrial flutter
CPT/HCPCS: 36415; 85610

== ENCOUNTER 2023-07-15 15:34 | Outpatient (RCR) | payer MEDICARE, OTHER, SELFPAY ==
[2023-06-18 21:43] VITALS: BMI 30.7
[2023-06-25 15:49] LABS: International Normalized Ratio 1.5; Prothrombin Time (Protime)PT. 17.8 SECONDS (11.7-14.9)
[2023-07-15 18:20] LABS: International Normalized Ratio 2.6; Prothrombin Time (Protime)PT. 28.1 SECONDS (11.7-14.9)
== END 2023-07-15 18:00 | disposition home or self-care (01) ==
LOC: MTLAB 15:34
PROVIDERS: Family Provider Family Medicine; PCP Family Medicine; Referring Provider Internal Medicine Cardiovascular Disease; Visit Provider Internal Medicine Cardiovascular Disease
DX: I48.0 Paroxysmal atrial fibrillation (principal); Z79.01 Long term (current) use of anticoagulants; I47.1 Supraventricular tachycardia; I48.92 Unspecified atrial flutter
CPT/HCPCS: 36415; 85610

== ENCOUNTER → 2023-08-10 | Outpatient (CLI) | payer MEDICARE, OTHER, SELFPAY ==
--- NOTE | 2023-08-10 09:16 | US_ITS ---
STUDY: ABDOMINAL ULTRASOUND - RIGHT UPPER QUADRANT REASON FOR VISIT: Female, 78 years old episodic epigastric abdominal pain with radiation to back TECHNIQUE: Ultrasound evaluation of the right upper quadrant was performed with real-time and static mackey-scale imaging. TECHNICAL QUALITY: Adequate. COMPARISON: 12/05/2019 FINDINGS: Liver: The liver measures 15.1 cm. There is increased echogenicity consistent with fatty infiltration. The bile ducts are within normal limits. There is hepatic color flow. The direction of portal flow is hepatopetal. There is no demonstrated mass lesion, there are simple hepatic cysts larger measures 3.9 cm. Gallbladder: Normal distended gallbladder. The gallbladder wall measures 1.8 mm. There is a negative sonographic Velasco''s sign. There is no pericholecystic fluid. There are no gallstones. Common Bile Duct (C.B.D.): The common bile duct measures 4.1 mm. Pancreas: Normal size of the head, body and tail of the pancreas. There is increased echogenicity of the pancreas. There is no demonstrated pancreatic mass or cyst. Right Kidney: Normal size of the right kidney. The right kidney measures 9.7 x 4.6 x 4.9 cm. Normal renal cortex. The right cortex measures 1.5 cm. There is a simple 2.1 m cyst. There is no right hydronephrosis. US/Abdomen Limited IMPRESSION: Simple hepatic and right renal cysts, no specific follow-up needed Electronically Signed: Jose Cha MD at 10:54 EDT ,
== END | disposition home or self-care (01) ==
LOC: US 09:15
PROVIDERS: PCP Family Medicine; Referring Provider Family Medicine; Visit Provider Family Medicine
DX: R10.9 Unspecified abdominal pain (principal)
CPT/HCPCS: 76705

== ENCOUNTER 2023-09-15 07:24 | Outpatient (RCR) | payer MEDICARE, OTHER, SELFPAY ==
[2023-07-19 04:58] VITALS: BMI 30.7
[2023-08-28 12:51] LABS: International Normalized Ratio 3.4; Prothrombin Time (Protime)PT. 34.9 SECONDS (11.7-14.9)
[2023-09-15 09:08] LABS: International Normalized Ratio 1.3; Prothrombin Time (Protime)PT. 15.9 SECONDS (11.7-14.9)
== END 2023-09-17 18:00 | disposition home or self-care (01) ==
LOC: LAB 07:24
PROVIDERS: Family Provider Family Medicine; PCP Family Medicine; Referring Provider Internal Medicine Cardiovascular Disease; Visit Provider Internal Medicine Cardiovascular Disease
DX: I48.0 Paroxysmal atrial fibrillation; Z79.01 Long term (current) use of anticoagulants
CPT/HCPCS: 36415; 85610

== ENCOUNTER 2023-10-06 11:07 | Outpatient (RCR) | payer MEDICARE, OTHER, SELFPAY ==
[2023-09-18 02:54] VITALS: BMI 30.7
[2023-10-06 12:15] LABS: Prothrombin Time (Protime)PT. 31.8 SECONDS (11.7-14.9)
== END 2023-10-18 18:00 | disposition home or self-care (01) ==
LOC: MTLAB 11:07
PROVIDERS: Family Provider Family Medicine; PCP Family Medicine; Referring Provider Internal Medicine Cardiovascular Disease; Visit Provider Internal Medicine Cardiovascular Disease
DX: I48.0 Paroxysmal atrial fibrillation (principal); Z79.01 Long term (current) use of anticoagulants
CPT/HCPCS: 36415; 85610

== ENCOUNTER 2023-11-13 10:30 | Outpatient (RCR) | payer MEDICARE, OTHER, SELFPAY ==
[2023-10-18 23:29] VITALS: BMI 30.7
[2023-11-13 12:32] LABS: International Normalized Ratio 2.5; Prothrombin Time (Protime)PT. 26.9 SECONDS (11.7-14.9)
== END 2023-11-13 18:00 | disposition home or self-care (01) ==
LOC: MTLAB 10:30
PROVIDERS: Family Provider Family Medicine; PCP Family Medicine; Referring Provider Internal Medicine Cardiovascular Disease; Visit Provider Internal Medicine Cardiovascular Disease
DX: I48.0 Paroxysmal atrial fibrillation (principal); Z79.01 Long term (current) use of anticoagulants
CPT/HCPCS: 36415; 85610

== ENCOUNTER → 2023-12-08 | Outpatient (CLI) | payer MEDICARE, OTHER, SELFPAY ==
--- OUTSIDE RECORDS SUMMARY | 2023-12-08 08:42 | XMS RPT_ITS | CCD ---
Author Name Unknown Address [address] [place] [address] Organization [facility] Care Team Providers Care Field Engineer Name Role Phone Mariama Cha Unavailable NOAH Alcala, Cierra Cardoza Unavailable Unavailneto Azar RN, Leticia Lambert Unavailable Unavailable Richard FRANCISCO, Romero Garcia Primary Care Provider Pcp, No Primary Care Provider UnavailMelissa Ham Primary Care Provider Melissa Moran(Historical) Primary Care Provide r Unavailable Melissa Moran(Historical) Primary Care Provide r Unavailable Melissa Moran(Historical) Primary Care Provide r Unavailable MILO MENCHACA Referring Unavailable BERNARDAMILO Referring Unavailable LOUIS GRANT Attending Unavailable BERNARDAMILO ANDREWS Referring Unavailable BERNARDAMILO Attending Unavailable BERNARDAMILO ANDREWS Referring Unavailable BERNARDAMILO Attending Unavailable BERNARDAMILO ANDREWS Admitting Unavailable BOWEN MOTT Referring Unavailable BERNARDAMILO Attending Unavailable BERNARDAMILO Referring Unavailable BERNARDAMILO Referring Unavailable Allergies Allergy Classification Reported Allergen(s) Allergy Type Date of Onset Reaction(s) Facility (3 sources) acetaminophen / HYDROcodone Drug Allergy 1 [facility] Work Phone: (3 sources) atorvastatin Drug Allergy 1 Muscle spasms [facility] Work Phone: (16 sources) codeine; Translations: [CODEINE] Drug Allergy 8 Vomiting, Unknown, Other: See Comments [facility] Work Phone: (3 sources) fenofibrate; Translations: [TRICOR] Drug Allergy 1 joint pain [facility] Work Phone: [phone] (3 sources) fluvastatin Drug Allergy 1 [facility] Work Phone: [phone] (3 sources) lovastatin Drug Allergy 1 Muscle spasms [facility] Work Phone: [phone] (3 sources) pravastatin Drug Allergy 1 Muscle spasms [facility] Work Phone: [phone] (16 sources) predniSONE; Translations: [PREDNISONE] Drug Allergy 8 Other: See Comments, Unknown [facility] Work Phone: [phone] (3 sources) simvastatin Drug Allergy 1 Muscle spasms [facility] Work Phone: [phone] (6 sources) Pravastatin; Translations: [PRAVASTATIN] Drug Allergy 1 Myalgia, Other: See Comments [facility] (6 sources) Simvastatin; Translations: [SIMVASTATIN] Drug Allergy 1 Myalgia, Other: See Comments [facility] Medications Completed/Discontinued Medications Medication Drug Class(es) Dates Sig (Normalized) Sig (Original) acetaminophen 325 mg oral tablet (13 sources) Start: 06-20-2022 take 2 tablets by mouth every six hours as needed acetaminophen (TYLENOL) 325 mg tablet Take 2 tablets by mouth every 6 hours as needed for pain or fever 60 tablet 0 06/20/2022 Active Problems Active Problems Problem Classification Problem Date Documented Da te Episodic/Chronic Acute cerebrovascular disease (3 sources) Cerebrovascular accident; Translations: [Cerebral infarction, unspecified] Onset: 05-21-2011 05-21-2011 Chronic Anxiety disorders (9 sources) Anxiety; Translations: [Anxiety disorder, unspecified] Onset: 06-09-2022 Chronic Cardiac dysrhythmias (20 sources) Atrial fibrillation; Translations: [Ventricular premature beats] Onset: 05-21-2011 11-25-2016 Chronic Disorders of lipid metabolism (12 sources) Hyperlipidemia; Translations: [Mixed hyperlipidemia] Onset: 05-21-2011 05-21-2011 Chronic Essential hypertension (12 sources) Benign hypertension; Translations: [Benign essential hypertension] Onset: 05-21-2011 05-21-2011 Chronic Gastrointestinal hemorrhage (12 sources) Hemorrhage of rectum and anus; Translations: [Hemorrhage of anus and rectum] 01-27-2008 Episodic Genitourinary symptoms and ill-defined conditions (9 sources) Urinary incontinence; Translations: [Unspecified urinary incontinence] Onset: 06-09-2022 Chronic Other aftercare (1 source) Patient encounter status; Translations: [Encounter for therapeutic drug level monitoring] Episodic Other nervous system disorders (1 source) Carpal tunnel syndrome; Translations: [Carpal tunnel syndrome, unspecified upper limb] Chronic Other nervous system disorders (6 sources) Cervical myelopathy; Translations: [Disease of spinal cord, unspecified] Onset: 06-19-2022 Chronic Other nervous system disorders (1 source) Disease of spinal cord, unspecified; Translations: [Cervical myelopathy (HCC)] Onset: 06-19-2022 Chronic Other nervous system disorders (1 source) Carpal tunnel syndrome, unspecified upper limb; Translations: [Carpal tunnel syndrome, unspecified laterality] Onset: 06-16-2022 Chronic Spondylosis; intervertebral disc disorders; other back problems (15 sources) Intervertebral disc disorder of cervical region with myelopathy; Translations: [Cervical disc disorder with myelopathy, mid-cervical region, unspecified level] Onset: 06-09-2022 Chronic Unclassified (6 sources) Long-term drug therapy; Translations: [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] Onset: 05-21-2011 04-23-2016 Past or Other Problems Problem Classification Problem Date Documented Date Episodic/Chronic Cardiac dysrhythmias (6 sources) Palpitations; Translations: [Palpitations] Onset: 05-21-2011 Resolved: 04-23-2016 04-23-2016 Episodic Nonspecific chest pain (6 sources) Chest pain, unspecified; Translations: [Chest pain, unspecified] Onset: 05-21-2011 Resolved: 04-23-2016 05-21-2011 Episodic Other aftercare (1 source) Encounter for therapeutic drug level monitoring; Translations: [Encounter for therapeutic drug level monitoring] Onset: 06-09-2022 Episodic Other circulatory disease (3 sources) History of cerebrovascular accident; Translations: [Personal history of other diseases of the circulatory system] Onset: 05-21-2011 04-23-2016 Episodic Other circulatory disease (9 sources) History of transient ischemic attack; Translations: [Personal history of transient ischemic attack (TIA), and cerebral infarction without residual deficits] Onset: 06-09-2022 Episodic Other connective tissue disease (5 sources) History of cervical spine fusion; Translations: [Arthrodesis status] Onset: 06-19-2022 06-19-2022 Episodic Other connective tissue disease (1 source) Arthrodesis status; Translations: [S/P cervical spinal fusion] Onset: 06-19-2022 Episodic Other injuries and conditions due to external causes (5 sources) At risk for falls ; Translations: [History of falling] Onset: 06-19-2022 06-19-2022 Episodic Other lower respiratory disease (6 sources) Dyspnea; Translations: [Shortness of breath] Onset: 05-21-2011 Resolved: 04-23-2016 04-23-2016 Episodic Other non-epithelial cancer of skin (9 sources) Malignant neoplasm of skin; Translations: [Unspecified malignant neoplasm of skin, unspecified] Onset: 06-09-2022 Episodic Unclassified (12 sources) Body mass index (BMI) 27.0-27.9, adult; Translations: [Body mass index (BMI) 28.0-28.9, adult] Onset: 09-05-2014 01-07-2017 Episodic Results Test Name Value Interpretation Reference Range Facil it Vital Signs Date Time Vital Sign Value Performing Clinician Facility 08-05-2022 12:40-0400 Body height 160 cm Milo Menchaca MD Work Phone: [facility] 08-05-2022 12:40-0400 Body weight 74.75 kg Milo Menchaca MD Work Phone: [facility] 08-05-2022 12:40-0400 Diastolic blood pressure 48 mm[Hg] Milo Menchaca MD Work Phone: [facility] 08-05-2022 12:40-0400 Heart rate 79 /min Milo Menchaca MD Work Phone: [facility] 08-05-2022 12:40-0400 Respiratory rate 20 /min Milo Menchaca MD Work Phone: [facility] 08-05-2022 12:40-0400 SaO2% (BldA) [Mass fraction] 98 % Milo Menchaca MD Work Phone: [facility] 08-05-2022 12:40-0400 Systolic blood pressure 116 mm[Hg] Milo Menchaca MD Work Phone: [facility] 06-16-2022 12:23-0400 Diastolic blood pressure 73 mm[Hg] Louis Grant MD Work Phone: [facility] 06-16-2022 12:23-0400 Systolic blood pressure 127 mm[Hg] Louis Grant MD Work Phone: [facility] 06-16-2022 12:13-0400 Body height 160 cm Louis Grant MD Work Phone: [facility] 06-16-2022 12:13-0400 Body weight 76.07 kg Louis Grant MD Work Phone: [facility] 06-16-2022 12:13-0400 Heart rate 69 /min Louis Grant MD Work Phone: [facility] 06-16-2022 12:13-0400 SaO2% (BldA) [Mass fraction] 98 % Louis Grant MD Work Phone: [facility] 06-09-2022 10:36-0400 Body height 160 cm Pacc 1 Work Phone: [facility] 06-09-2022 10:36-0400 Body temperature 96.91 [degF] Pacc 1 Work Phone: [facility] 06-09-2022 10:36-0400 Body weight 76.2 kg Pacc 1 Work Phone: [facility] 06-09-2022 10:36-0400 Diastolic blood pressure 78 mm[Hg] Pacc 1 Work Phone: [facility] 06-09-2022 10:36-0400 Heart rate 80 /min Pacc 1 Work Phone: [facility] 06-09-2022 10:36-0400 Respiratory rate 16 /min Pacc 1 Work Phone: [facility] 06-09-2022 10:36-0400 SaO2% (BldA) [Mass fraction] 96 % Pacc 1 Work Phone: [facility] 06-09-2022 10:36-0400 Systolic blood pressure 130 mm[Hg] Pacc 1 Work Phone: [facility] 05-28-2022 14:10-0400 Body height 160 cm Milo Menchaca MD Work Phone: [facility] 05-28-2022 14:10-0400 Body weight 77.11 kg Milo Menchaca MD Work Phone: [facility] 05-28-2022 14:10-0400 Diastolic blood pressure 62 mm[Hg] Milo Menchaca MD Work Phone: [facility] 05-28-2022 14:10-0400 Heart rate 74 /min Milo Menchaca MD Work Phone: [facility] 05-28-2022 14:10-0400 Respiratory rate 18 /min Milo Menchaca MD Work Phone: [facility] 05-28-2022 14:10-0400 SaO2% (BldA) [Mass fraction] 97 % Milo Menchaca MD Work Phone: [facility] 05-28-2022 14:10-0400 Systolic blood pressure 111 mm[Hg] Milo Menchaca MD Work Phone: [facility] 09-08-2017 07:38-0500 BMI (Body Mass Index) 28.15 kg/m2 [facility] Work Phone: 09-08-2017 07:38-0500 BP Diastolic 66 mm[Hg] [facility] Work Phone: 09-08-2017 07:38-0500 BP Systolic 140 mm[Hg] [facility] Work Phone: 09-08-2017 07:38-0500 Height 162.56 cm Mariama Cha [facility] Work Phone: 09-08-2017 07:38-0500 Pulse (Heart Rate) 76 /min Mariama Cha [facility] Work Phone: 09-08-2017 07:38-0500 Respiratory Rate 16 /min Mariama Cha [facility] Work Phone: 09-08-2017 07:38-0500 Weight 74.39 kg Mariama Cha [facility] Work Phone: 01-07-2017 09:55-0400 BMI (Body Mass Index) 27.32 kg/m2 Leticia [facility] Work Phone: 01-07-2017 09:55-0400 BP Diastolic 72 mm[Hg] Leticia Azar RN [facility] Work Phone: 01-07-2017 09:55-0400 BP Systolic 130 mm[Hg] Leticia Azar RN [facility] Work Phone: 01-07-2017 09:55-0400 Height 162.56 cm Leticia Azar RN [facility] Work Phone: 01-07-2017 09:55-0400 Pulse (Heart Rate) 70 /min Leticia Azar RN [facility] Work Phone: 01-07-2017 09:55-0400 Respiratory Rate 18 /min Leticia Azar RN [facility] Work Phone: 01-07-2017 09:55-0400 Weight 72.21 kg Leticia Azar RN [facility] Work Phone: 05-28-2016 09:45-0400 BSA (Body Surface Area) 1.75 m2 Leticia Azar RN [facility] Work Phone: Encounters Encounter Date Encounter Type Care Provider Facility Start: 10-07-2022 Telephone encounter Milo Menchaca MD Work Phone: Neurology Procedures Date Procedure Procedure Detail Performing Clinician Start: 08-05-2022 Radex spine cervical 2 or 3 views William Reyes PA-C Work Phone: Start: 06-09-2022 Antibody screen MILO SIFUENTESGAMAN Plan of Treatment Date Care Activity Detail Author Start: 06-09-2025 DIABETES SCREEN DIABETES SCREEN [facility] Start: 08-05-2023 BP CONTROLLED (<130/80) BP CONTROLLE D (<130/80) [facility] Start: 06-16-2023 BP CONTROLLED (<130/80) BP CONTROLLE D (<130/80) [facility] Start: 06-19-2022 Influenza vaccination INFLUENZA (#1) [facility] Start: 06-09-2022 End: 08-09-2022 aPTT in Platelet poor plasma by Coagulation assay ACTIVATED PTT Lab Routine Encounter for therapeutic drug level monitoring Expected: 06/09/2022, Expires: 08/09/2022 [facility] Work Phone: Payers Date Payer Category Payer Medicare [id number] 2015 Private Health Insurance HUMANA HUMANA MEDICARE SUPPLEMENT [id number] 2015-Present [phone] [address] [address] [place] [address] Indemnity [id number] 2015 Private Health Insurance HUMANA HUMANA MEDICARE SUPPLEMENT [id number] 2015-Present [phone] [address] [address] [place] [address] Indemnity [id number] 2009 Medicare MEDICARE MEDICAR E A AND B [id number] 2009-Present [phone] [address] [address] [place] [address] Medicare [id number] 2009 Medicare MEDICARE MEDICAR E A AND B [id number] 2009-Present [phone] [place] [address] Medicare [id number] 2009 Medicare [id number] Social History Date Type Detail Facility Start: 05-28-2022 End: 06-09-2022 Tobacco smoking status NHIS Never smoked tobacco [facility] Start: 08-11-2016 End: 08-05-2022 Alcohol intake Current non-drinker of alcohol (finding) [facility] Start: 1945 Sex Assigned At Not on file [facility] Start: 04-29-2022 End: 06-16-2022 Exposure to SARS-CoV-2 (event) Not sure [facility] Start: 06-09-2022 Tobacco use and exposure Smoke less tobacco non-user [facility] Medical Equipment Procedure Code Equipment Code Equipment Origin al Text Equipment Identifier Dates [place] Cervical P late I Level [id number] Start: 06-19-2022 Screw Bn 4mm 14m m [place] [facility] - [id number] Start: 06-19-2022 Clinical Notes 04-30-2022 to 10-07-2022 Telephone Encounter - Amarilys Garcia - 10/07/2022 5:13 PM ESTTelephone Encounter - Hansa Clifton RN - 09/04/2022 1:23 PM ESTTelephone Encounter - William Reyes PA-C - 09/04/2022 1:20 PM EST Note Date & Type Note Facility 10-07-2022 Miscellaneous Notes D/C summary uploaded to [employer]. documented in this encounter [facility] 09-04-2022 Miscellaneous Notes Spoke to PT from [facility]. Can fax PT order to [phone]. Order faxed. Hansa Clifton RN PT order placed. S/P: 06/19: C3/4 ACDF JESÚS: 08/05: She is now improving nicely. Walking has improved. She fell once when she first arrived home. Now having minimal discomfort Spoke to Della: reports she is doing well. Walking every day. Uses a cane for support d/t to some staggering and weakness in bilateral legs. Uses a wheeled walker for longer distances. Denies neck pain. Reports slight tingling in upper thighs when she is leaning against the sink which stops when the pressure is off the skin. Requesting outpatient PT order for continued strengthening and exercises in her lower legs and for help with walking. She would like to go to [facility] Advised she is okay to fly and go through airport security. Forwarded to KRISTIE for review of PT request and order placement. Hansa Clifton RN General call : Full name of person calling: Della Lambert Kate Relationship to patient: self Phone # : [phone] Reason for call: Patient states she has a metal plate in her neck, wants to know if she will be okay to fly and get through a metal detector, myriam asking for orders for PT for legs. Patient of Dr. Menchaca documented in this encounter [facility] 09-02-2022 Miscellaneous Notes Spoke to RN - advised ok start PT. Hansa Clifton RN General call : Full name of person calling: hank gordon (PCP) Relationship to patient: -[place] Phone # : [phone]-any nurse Reason for call: trying to see if she can have physical therapy. She had surgery 06/[address] menchaca documented in this encounter [facility] 08-05-2022 Note HNO ID: [id number] Author: Milo Menchaca MD Service: ? Author Type: Physician Type: Progress Notes Filed: 08/05/2022 4:15 PM Note Text: She is s/p C3/4 ACDF 6 weeks ago for cord compression. She is now improving nicely. Walking has improved. She fell once when she first arrived home. Now having minimal discomfort incision well healed. swallowing normal xrays great. Milo Menchaca MD cervical myelopathy postop visit [facility] 08-05-2022 History of Present illness Narrative She is s/p C3/4 ACDF 6 weeks ago for cord compression. She is now improving nicely. Walking has improved. She fell once when she first arrived home. Now having minimal discomfort incision well healed. swallowing normal xrays great. Milo Menchaca MD cervical myelopathy postop visit documented in this encounter [facility] 08-05-2022 Note HNO ID: [id number] Author: RT Damaris(R) Service: Radiology Author Type: Technologist Type: Progress Notes Filed: 08/05/2022 12:00 PM Note Text: Radiology Service Progress Note PATIENT NAME: Della Love DATE OF SERVICE: August 05, 2022 TIME: 12:00 PM PATIENT IDENTITY VERIFICATION COMPLETED USING TWO (2) IDENTIFIERS: Name and Date of confirmed by patient verbally. FALL SCREENING: Has the patient had 2 falls in the last year or 1 fall with injury or currently using an Ambulatory Assistive Device (Walker, Cane, Wheelchair, Crutches, etc.)? No PATIENT GENDER DATA: Female. status: : No status: NO. PATIENT RELEVANT IMPLANT DATA REVIEWED: Not Applicable RADIOLOGY DEPARTMENT: General X-ray: Exam(s) Completed: Spine X-Ray(s): Cervical AP / LAT PERIPHERAL IV DATA: Not applicable SIGNED BY: RT Damaris(R) August 05, 2022 12:00 PM [facility] 08-05-2022 History of Present illness Narrative Radiology Service Progress Note PATIENT NAME: Della Love DATE OF SERVICE: August 05, 2022 TIME: 12:00 PM PATIENT IDENTITY VERIFICATION COMPLETED USING TWO (2) IDENTIFIERS: Name and Date of confirmed by patient verbally. FALL SCREENING: Has the patient had 2 falls in the last year or 1 fall with injury or currently using an Ambulatory Assistive Device (Walker, Cane, Wheelchair, Crutches, etc.)? No PATIENT GENDER DATA: Female. status: : No status: NO. PATIENT RELEVANT IMPLANT DATA REVIEWED: Not Applicable RADIOLOGY DEPARTMENT: General X-ray: Exam(s) Completed: Spine X-Ray(s): Cervical AP / LAT PERIPHERAL IV DATA: Not applicable SIGNED BY: RT Damaris(Sue) August 05, 2022 12:00 PM documented in this encounter [facility] 06-20-2022 Note HNO ID: [id number] Author: Myriam Leone PA-C Service: Neurosurgery Author Type: Physician Automotive Designer Type: Progress Notes Filed: 06/20/2022 12:24 PM Note Text: SERVICE DATE: 06/20/2022 SERVICE TIME: 12:24 PM NEURO SURGERY PROGRESS NOTE Account #: Data Unavailable Admission Date: 06/19/2022 Date of Evaluation: June 20, 2022 Time of Evaluation: 12:19 PM Attending: Dr. Milo Menchaca MD. Location: [id number]/[id number] Please page Thu-Thu 7a-4p: Myriam Leone PA-C [id number] Thu-Thu 4p-6p: Dusty Mejia PA-C [id number] Thu-Thu 6p-7a and weekends: [id number] or KRISTIE semiconductor engineer Subjective POD # 1 S/P: ACDF C3-C4 INTERVAL HPI: reports 10% improvement of her right arm paresthesias. She reports that at home she would also get a pins and needles feeling on her mid back- around her bra strap line when showering. Further, she would also have a right lateral leg numbness as well when standing for two long. She statse she hsan't noticed the right leg and upper back parethesias yet but that she has mobilized very much. She states she has been able to eat soft foods but not able to eat eggs or a sandwich. She has ambulated voided and passed gas. She would like to go home today. Denies excessive pain, bleeding, drainage, nausea, vomiting, chest pain, shortness of breath, light headedness, swelling, itching, calf pain, constipation, and difficulty voiding. Overnight events noted: none. MEDICATIONS: Current Facility-Administered Medications Medication Dose Route Frequency - flecainide 50 mg tab(s) (TAMBOCOR) 50 mg ORAL BID - lisinopril 10 mg tab(s) (ZESTRIL, PRINIVIL) 10 mg ORAL DAILY - metoprolol succinate ER 50 mg tab(s) (TOPROL XL) 50 mg ORAL BID - DULoxetine 60 mg cap(s) (CYMBALTA) 60 mg ORAL DAILY - cholecalciferol 1,000 Units tab(s) (VITAMIN D3) 1,000 Units ORAL DAILY - sodium chloride 0.9 % (flush) 3-5 mL (BD POSIFLUSH) 3-5 mL INTRAVENOUS q 12 H - acetaminophen 650 mg tab(s) (TYLENOL) 650 mg ORAL q 6 H PRN Or - acetaminophen 650 mg suppository (TYLENOL) 650 mg RECTAL q 6 H PRN - docusate sodium 100 mg cap(s) (COLACE) 100 mg ORAL BID - ondansetron (PF) 4 mg injection (ZOFRAN) 4 mg INTRAVENOUS q 6 H PRN - traMADol 50 mg tab(s) (ULTRAM) 50 mg ORAL/FEEDING TUBE q 6 H PRN - atorvastatin 10 mg tab(s) (LIPITOR) 10 mg ORAL AT BEDTIME - hydrALAZINE 5-10 mg injection (APRESOLINE) 5-10 mg INTRAVENOUS q 10 MIN PRN - NaCl 0.9% iv flush bag 20 mL INTRAVENOUS PRN - pantoprazole DR 20 mg tab(s) (PROTONIX) 20 mg ORAL DAILY (6 AM) - therapeutic multivitamin-minerals tablet (THERA-M PLUS) 1 tablet ORAL DAILY - benzocaine-menthol 1 Lozenge (CHLORASEPTIC) 1 Lozenge MUCOUS MEMBRANE (TOPICAL MOUTH AND THROAT) q 2 H PRN - senna 8.6 mg tab(s) (SENOKOT) 8.6 mg ORAL/FEEDING TUBE BID - [START ON 06/21/2022] heparin 5,000 Units injection 5,000 Units SUBCUTANEOUS q 12 H - methocarbamol 750 mg tab(s) (ROBAXIN) 750 mg ORAL TID PRN Objective PHYSICAL EXAM: General: A AND O x 3. Appears stated age, overweight, in no apparent distress. Psychiatric: Mood and affect: Appropriate. Skin: Color, texture, turgor normal. No rashes or lesions Incision: clean/dry/intactslight ecchymosis just inferior to her incision- trachea midline - neck flat CV: Normal heart sounds, rate, rhythm, No audible murmurs, LE edema.. Respiratory: lungs CTA bilat Abdomen: Soft and Non-tender Musculoskeletal: Gait: not assessed Muscle strength: UE BICEPS TRICEPS DELTS Cocoa Room Operator R 4+/5 5/5 5/5 4/5 L 5/5 5/5 5/5 5/5 LE Hip Flex Knee Flex Knee Extend Plantarflex Dorsiflex EHL R 5/5 5/5 5/5 5/5 5/5 5/5 L 5/5 5/5 5/5 5/5 5/5 5/5 Right hand instrinsics 3/5 and left 4/5 Negative hoffmans CRANIAL NERVES: Pupils: OD Right: 3 mm Reactive OS Left: 3 mm Reactive III, IV, EOM full V Facial sensation normal VII Normal strength VIII Normal bilaterally IX, X Normal, midline palatal rise XI Symmetric shrug XII Tongue midline, mobile Drift:negative pronator drift Speech:intact Hemineglect:not present LABS: CBC, Coags, BMP, Mg, Phos Recent Labs 06/19/22 0645 INR 1.0 Anion Gap Date Value Ref Range Status 06/09/2022 15 9 - 18 mmol/L Final VITAL SIGNS 24 HOUR REVIEW: 06/19/22 2120 06/20/22 0202 06/20/22 0523 06/20/22 0938 BP: 118/52 97/55 (!) 114/49 (!) 114/47 Pulse: 79 79 79 71 Resp: 18 18 18 18 Temp: 36.7 ?C (98.1 ?F) 36.6 ?C (97.9 ?F) 36.6 ?C (97.9 ?F) 36.9 ?C (98.4 ?F) TempSrc: Oral Oral Oral Oral SpO2: 95% 96% 94% 96% Weight: Height: Intake/Output Summary (Last 24 hours) at 06/20/2022 1219 Last data filed at 06/20/2022 0612 Gross per 24 hour Intake 1255 ml Output 600 ml Net 655 ml IMAGING: cervical xrays: Stable placement of hardware. Lines, Drains, and Airways Line Duration Peripheral 06/19/22 0659 Short Left Hand 20 Gauge 1 day Peripheral 06/19/22 0740 Right Hand 18 Gauge 1 day PATIENT CHECK LIST: Needs PT or OT Evaluation Medel/drains (more content not included)... [facility] 06-20-2022 Note HNO ID: [id number] Author: RT Markel(R) Service: Radiology Author Type: Technologist Type: Progress Notes Filed: 06/20/2022 10:52 AM Note Text: Radiology Service Progress Note PATIENT NAME: Della Love DATE OF SERVICE: June 20, 2022 TIME: 10:52 AM PATIENT IDENTITY VERIFICATION COMPLETED USING TWO (2) IDENTIFIERS: Name and Date of confirmed by patient verbally and Name and Date of confirmed by identification band. FALL SCREENING: Has the patient had 2 falls in the last year or 1 fall with injury or currently using an Ambulatory Assistive Device (Walker, Cane, Wheelchair, Crutches, etc.)? Inpatient: Screened on floor PATIENT GENDER DATA: Female. status: : No status: NO. PATIENT RELEVANT IMPLANT DATA REVIEWED: Not Applicable RADIOLOGY DEPARTMENT: General X-ray: Exam(s) Completed: Spine X-Ray(s): Cervical AP / LAT PERIPHERAL IV DATA: Not applicable SIGNED BY: RT Markel(R) June 20, 2022 10:52 AM [facility] 06-20-2022 Note HNO ID: [id number] Author: DALIA Patel Service: Care Management Author Type: Private Branch Exchange Service Advisor Type: Care Mgt Progress Note Filed: 06/20/2022 10:01 AM Note Text: CARE MANAGEMENT PROGRESS NOTE SERVICE DATE: 06/20/2022 SERVICE TIME: 9:59 AM LOS: 1 day Needs Prior to Discharge: None Current Advance Directive: None Components Engineer Attempted to Assist with AD Completion: Yes Action: Other: See Comment (Patient discharging) Caregiver is ready, willing and able to meet the patient's needs as recommended by the inter-professional team:: No Caregiver needed Amigo of Choice Given: No Reason Not Given: No placements necessary Patient skilled for outpatient physical therapy. Discharge order placed. This patient has been screened for Care Management Transitional Planning Services. At this time, it does not appear this patient will require transition planning services. Should this change, and the patient require transition planning services during this admission, please contact Case Management. SIGNATURE: DALIA Patel PATIENT NAME: Della Love DATE: June 20, 2022 TIME: 9:59 AM PAGER/CONTACT #: [phone] [facility] 06-19-2022 Note HNO ID: [id number] Author: Tristen Ch MD Service: ? Author Type: Fellow Type: Anesthesia Procedure Notes Filed: 06/19/2022 8:40 AM Note Text: ANESTHESIOLOGY PROCEDURE NOTE PIV General Information Procedure Start Time/Medication Administration: 06/19/2022 7:40 AM Patient Location: OR Staffing Fellow: Tristen Ch MD Performed by: fellow Preparation Sterility Preparation: hand hygiene performed prior to procedure, sterile gloves, drapes, and procedure tray, surgical cap used, mask used, sterile drape used during line insertion, skin prep agent completely dried prior to procedure Site Prep: alcohol Procedure Details Indication: need for IV access Needle Size/Type: 18 gauge angiocath Orientation: Right Location: Hand Imaging Guidance Used: No SIGNATURE: Tristen Ch MD PATIENT NAME: Della Love DATE: June 19, 2022 TIME: 8:39 AM CSN: [id number] [facility] 06-19-2022 Note HNO ID: [id number] Author: Aundrea Wyman MD Service: ? Author Type: Anesthesiologist Type: Anesthesia Procedure Notes Filed: 06/19/2022 8:37 AM Note Text: ANESTHESIOLOGY PROCEDURE NOTE Airway General Information Procedure Start Time/Medication Administration: 06/19/2022 7:44 AM Patient location during procedure: OR Timeout Performed Pre-procedure: timeout performed Consent Obtained: Yes Patient identity confirmed: arm band and patient Staffing Fellow: Tristen Ch MD Performed by: fellow Indications and Patient Condition Indications for airway management: anesthesia Preoxygenated: yes anesthesia circuit Method: sleep Cricoid Pressure: No Manual In-Line Stabilization: No Difficult Mask: No Airway Accessory: oral airway Final Airway Details Final airway type: endotracheal airway Final Endotracheal Airway: ETT Cuffed: yes Successful intubation technique: flexible bronchoscopy Endotracheal tube insertion site: oral ETT size (mm): 7.0 Measured from: teeth Measurement (cm): 21 Placement verified by: capnometry Number of attempts at approach: 1 Failed airway: no Unrecognized esophageal intubation: no Airway not difficult Comments Asleep fiberoptic intubation done SIGNATURE: Aundrea Wyman MD PATIENT NAME: Della Love DATE: June 19, 2022 TIME: 8:33 AM CSN: [id number] [facility] 06-19-2022 Note HNO ID: [id number] Author: Boone Linares MD Service: Neurosurgery Author Type: Resident Type: Plan of Care Filed: 06/19/2022 10:43 AM Note Text: Neurosurgery POC Note Interval HPI: S/p C3/4 ACDF Objective: 06/19/22 0700 BP: 170/80 Pulse: 71 Resp: 16 Temp: 36.3 ?C (97.3 ?F) TempSrc: Temporal Artery SpO2: 98% Weight: 75.8 kg (167 lb) Height: 160 cm (5' 3 ) EXAM: Waking up from anesthesia appropriately CN grossly intact RUE: D 5, Bi 5, Tri 5, HG 5 LUE: D 5, Bi 5, Tri 5, HG 5 RLE: HF 5, KE 5, DF 5, EHL 5, PF 5 LLE: HF 5, KE 5, DF 5, EHL 5, PF 5 Negative Moore's No Clonus Sensation to light touch intact throughout Incision c/d/i A/P: 77 yo F PMH prior TIA (2003 on Aspirin), Afib (Coumadin), HTN, HLD, and cervical myelopathy here for elective decompression and fusion. Now s/p: 06/19 C3/4 ACDF - Patient to recover in PACU - Transfer to RNF following PACU course - Pain management: PRN medications - Perioperative antibiotics: ancef - PT/OT, Ok to mobilize - XR UR when able - SBP <160 mmHg, MAP >65 mmHg - Hold antiplatelets/anticoagulants - Will discuss aspirin and coumadin restart plans - SCDs only for DVT prophylaxis - Ok for SQH on POD#2 - Advance diet as tolerated Boone Linares MD Neurosurgery PGY4 Pager: [phone] June 19, 2022 9:40 AM Page [phone] after 6 pm and on weekends [facility] 06-16-2022 Note HNO ID: [id number] Author: Louis Grant MD Service: ? Author Type: Physician Type: Progress Notes Filed: 06/18/2022 4:01 PM Note Text: [facility] Department of Cardiovascular Medicine SECTION OF CARDIOVASCULAR IMAGING OUTPATIENT VISIT DATE June 16, 2022 OUTPATIENT VISIT TYPE CONSULT PRIMARY CARE PHYSICIAN: MELISSA MORAN [address] [place] [address] REFERRING PHYSICIAN: Milo Menchaca [address] [place], [place] [id number] CHIEF COMPLAINT: pre op cardiovascular evaluation HISTORY OF PRESENT ILLNESS: Cardiac consultation at the request of Dr. Milo Menchaca. A copy of this consultation note will be provided to the requesting physician by way of shared Medical record or letter to requesting physician via [place] mail. Della Love is a 77 year old female from [place], [place] here today for pre op cardiovascular evaluation prior to anterior discectomy, osteophytectomy decompress cord/nerve root on 06/19/22 She was seen by technical supervisor 09/16/21. Summary for visit below: Patient was in ED 04/21/22- Patient states she was having back, chest pain with both arms. Her diagnosis included back issues and now is here for clearance for cervical spinal sx. Assessment from ED DELLA LOVE is a 77 year old F here today for thoracic spine pain. Patient notes that she has had pain for many years with her pain progressively worsening. Patient had significant pain on 04/21/22 where her pain/spasms went into her chest, down her bilateral arms and into her cervical spine. Patient states that she had numbness of her bilateral fingers. Patient denies any known injury but did a lot of lifting at her job. Patient complains of pain over her thoracic spine, into her chest and down into her arm. Patient notes that she had multiple studies while at the hospital. Patient denies any injections. Patient notes that she was unable to use her legs while at the hospital, she tried to stand up and had no use of her legs. Patient notes that she had physical therapy and injections for her cervical spine over the years. Patient is taking tylenol for pain now. She has a significant medical history of hypertension, atrial tachycardia, atrial fibrillation(dx in 2002, she was having palpitations at that time and saw her technical supervisor.) She also has hyperlipidemia, CVA, osteoporosis, osteoarthritis. She reports the following symptoms lightheadedness when standing too fast, fatigue, and KNUTSON She denies chest pain, dizziness, palpitations, syncope/near syncope She currently retired from [employer] She follows a regular diet. She does not participates in exercise at this time. She states since she was hospitalized, she can no longer walk. PRIOR TESTING: CT spine 04/22/22 Stress Test 04/22/22: ECG 04/22/2022 ECHO 03/07/19 PAST MEDICAL HISTORY Diagnosis Date Essential hypertension, benign External hemorrhoids without mention of complication Hemorrhage of gastrointestinal tract, unspecified Hemorrhage of rectum and anus Internal hemorrhoids without mention of complication Neuropathy Osteoarthritis of multiple joints Osteoporosis Other specified cardiac dysrhythmias(427.89) atrial tachycardia Paroxysmal atrial fibrillation (HCC) Pure hypercholesterolemia Skin cancer, basal cell TIA (transient ischemic attack) 2003 Toe injury PAST SURGICAL HISTORY Procedure Laterality Date APPENDECTOMY DILATION AND CURETTAGE DXAND/THER NONOBSTETRIC Dilation AND curettage HEMORRHOIDECTOMY INT AND XTRNL 2/> COLUMN/JENNA PAST SURGICAL HISTORY OF carpel tunnel surgery PAST SURGICAL HISTORY OF basal skin cancer removal POST-CATARACT LASER SURGERY RT/LT HEART CATHETERS Left SIGMOIDOSCOPY FLX DX W/COLLJ SPEC BR/WA IF PFRMD 02/17/2008 TONSILLECTOMY PRIMARY/SECONDARY Tonsillectomy TOTAL ABDOMINAL HYSTERECT W/WO RMVL TUBE OVARY Hysterectomy, ALEX SOCIAL HISTORY Social History Tobacco Use Smoking status: Never Smokeless tobacco: Never Vaping Use Vaping Use: Never used Substance Use Topics Alcohol use: No Drug use: Never FAMILY HISTORY Adopted: Yes Problem Relation Age of Onset Heart Attack Mother Diabetes Father Diabetes Sister Diabetes Sister Essential Tremor Brother Blood Clots Brother fatal Diabetes Brother No Known Problems Maternal Grandmother No Known Problems Maternal Grandfather No Known Problems Paternal Grandmother No Known Problems Paternal Grandfather No Known Problems Son No Known Problems Son ALLERGIES: ALLERGIES Allergen Reactions Codeine Vomiting Prednisone tachycardia and low back pain MEDICATIONS: multivit-min/iron/folic acid/K (ADULTS MULTIVITAMIN ORAL) Take by mouth. flecainide (TAMBOCOR) 50 mg tablet Take 50 mg by mouth twice daily. cholecalciferol (VITAMIN D3) 1,000 unit tab tablet Take 1,000 Units by mouth once (more content not included)... [facility] 06-16-2022 History of Present illness Narrative Images from the original note were not included. [facility] Department of Cardiovascular Medicine SECTION OF CARDIOVASCULAR IMAGING OUTPATIENT VISIT DATE June 16, 2022 OUTPATIENT VISIT TYPE CONSULT PRIMARY CARE PHYSICIAN: MELISSA MORAN [address] [place] [address] REFERRING PHYSICIAN: Milo Menchaca [address] [place] [address] CHIEF COMPLAINT: pre op cardiovascular evaluation HISTORY OF PRESENT ILLNESS: Cardiac consultation at the request of Dr. Milo Menchaca. A copy of this consultation note will be provided to the requesting physician by way of shared Medical record or letter to requesting physician via [place] mail. Della Love is a 77 year old female from [place], [place] here today for pre op cardiovascular evaluation prior to anterior discectomy, osteophytectomy decompress cord/nerve root on 06/19/22 She was seen by technical supervisor 09/16/21. Summary for visit below: Patient was in ED 04/21/22- Patient states she was having back, chest pain with both arms. Her diagnosis included back issues and now is here for clearance for cervical spinal sx. Assessment from ED DELLA LOVE is a 77 year old F here today for thoracic spine pain. Patient notes that she has had pain for many years with her pain progressively worsening. Patient had significant pain on 04/21/22 where her pain/spasms went into her chest, down her bilateral arms and into her cervical spine. Patient states that she had numbness of her bilateral fingers. Patient denies any known injury but did a lot of lifting at her job. Patient complains of pain over her thoracic spine, into her chest and down into her arm. Patient notes that she had multiple studies while at the hospital. Patient denies any injections. Patient notes that she was unable to use her legs while at the hospital, she tried to stand up and had no use of her legs. Patient notes that she had physical therapy and injections for her cervical spine over the years. Patient is taking tylenol for pain now. She has a significant medical history of hypertension, atrial tachycardia, atrial fibrillation(dx in 2002, she was having palpitations at that time and saw her technical supervisor.) She also has hyperlipidemia, CVA, osteoporosis, osteoarthritis. She reports the following symptoms lightheadedness when standing too fast, fatigue, and KNUTSON She denies chest pain, dizziness, palpitations, syncope/near syncope She currently retired from [employer] She follows a regular diet. She does not participates in exercise at this time. She states since she was hospitalized, she can no longer walk. PRIOR TESTING: CT spine 04/22/22 Stress Test 04/22/22: ECG 04/22/2022 ECHO 03/07/19 PAST MEDICAL HISTORY Diagnosis Date Essential hypertension, benign External hemorrhoids without mention of complication Hemorrhage of gastrointestinal tract, unspecified Hemorrhage of rectum and anus Internal hemorrhoids without mention of complication Neuropathy Osteoarthritis of multiple joints Osteoporosis Other specified cardiac dysrhythmias(427.89) atrial tachycardia Paroxysmal atrial fibrillation (HCC) Pure hypercholesterolemia Skin cancer, basal cell TIA (transient ischemic attack) 2003 Toe injury PAST SURGICAL HISTORY Procedure Laterality Date APPENDECTOMY DILATION & CURETTAGE DX&/THER NONOBSTETRIC Dilation & curettage HEMORRHOIDECTOMY INT & XTRNL 2/> COLUMN/JENNA PAST SURGICAL HISTORY OF carpel tunnel surgery PAST SURGICAL HISTORY OF basal skin cancer removal POST-CATARACT LASER SURGERY RT/LT HEART CATHETERS Left SIGMOIDOSCOPY FLX DX W/COLLJ SPEC BR/WA IF PFRMD 02/17/2008 TONSILLECTOMY PRIMARY/SECONDARY <AGE 11 Tonsillectomy TOTAL ABDOMINAL HYSTERECT W/WO RMVL TUBE OVARY Hysterectomy, ALEX SOCIAL HISTORY Social History Tobacco Use Smoking status: Never Smokeless tobacco: Never Vaping Use Vaping Use: Never used Substance Use Topics Alcohol use: No Drug use: Never FAMILY HISTORY Adopted: Yes Problem Relation Age of Onset Heart Attack Mother Diabetes Father Diabetes Sister Diabetes Sister Essential Tremor Brother Blood Clots Brother fatal Diabetes Brother No Known Problems Maternal Grandmother No Known Problems Maternal Grandfather No Known Problems Paternal Grandmother No Known Problems Paternal Grandfather No Known Problems Son No Known Problems Son ALLERGIES: ALLERGIES Allergen Reactions Codeine Vomiting Prednisone tachycardia and low back pain MEDICATIONS: multivit-min/iron/folic acid/K (ADULTS MULTIVITAMIN ORAL) Take by mouth. flecainide (TAMBOCOR) 50 mg tablet Take 50 mg by mouth twice daily. cholecalciferol (VITAMIN D3) 1,000 unit tab tablet Take 1,000 Units by mouth once daily. acetaminophen (TYLENOL EXTRA STRENGTH ORAL) Take by mouth. DULoxetine (CYMBALTA) 60 mg capsule Take 60 mg by mouth once daily. traMADol (ULTRAM) 50 mg tablet Take 50 mg by mouth as needed. metoprolol succinate ER (TOPROL XL) 50 mg 24 hr tablet Take 50 mg by mouth twice daily. Omeprazole 20 mg TbEC Take by mouth. LISINOPRIL 10 MG TAB Take one(1) tablet daily. atorvastatin calcium(LIPITOR 10 MG TAB) Take one(1) tablet daily. calcium carb/vit d3/minerals(CALTRATE PLUS 600 MG-400 UNIT TAB) Take by mouth once daily. Taking two tablets one time a day loratadine (CLARITIN) 10 mg tablet Take 10 mg by mouth once daily. (Patient not taking: Reported on 06/16/2022) warfarin (COUMADIN) 3 mg tablet Take 3 mg by mouth daily as directed. (Patient not taking: Reported on 06/16/2022) WARFARIN SODIUM (COUMADIN ORAL) Take by mouth. (Patient not taking: Reported on 06/16/2022) aspirin(ECOTRIN LOW STRENGTH 81 MG TAB) Take one(1) tablet daily. (Patient not taking: Reported on 06/16/2022) polyethylene glycol 3350(MIRALAX 100 % ORAL POWDER) Use as directed. (Patient not taking: Reported on 06/16/2022) REVIEW OF SYSTEMS: POSITIVES IN BOLD GENERAL: Negative for: Weight loss or gain, Fever or Chills, Weakness and Sleep difficulties. HEENT: Negative for: Headache, Impaired Vision, Glasses, Hearing Impairment, Ringing in Ears, Nosebleeds, Poor dental care, Bleeding Gums, Dentures NECK: Negative for: Swelling, Pain, Stiffness RESPIRATORY: Negative for: Cough, Blood in Sputum, Shortness of breath, Wheezing, Apnea GASTROINTESTINAL: Negative for: Trouble swallowing, Heartburn, Change in bowel habits, Blood in stool, Dark black stools MUSCULOSKELETAL: Negative for: Muscle or joint pain, Stiffness , Joint swelling NEUROLOGIC/PSYCHIATRIC: Negative for: Weakness, Paralysis, Numbness, Tingling, Tremor, Nervousness, Depressed mood, Memory loss SKIN: Negative for: Rashes, Itching HEMATOLOGICAL/LYMPHATIC: Negative for: Easy bruising , Easy bleeding ENDOCRINE: Negative for: Heat or cold intolerance, Excessive sweating, Frequent urination, Frequent thirst PHYSICAL EXAMINATION: BP 127/73 (BP Site: Right Arm) Pulse 69 Ht 160 cm (5' 3 ) Wt 76.1 kg (167 lb 11.2 oz) SpO2 98% BMI 29.71 kg/m General: In no acute distress Skin: No clubbing, no cyanosis Eyes: Extra ocular movements intact Oropharynx: In good repair Neck: No jugular venous distention Lungs: Clear Heart: Regular rhythm, S1, S2 normal, no S3, no S4, and no murmur Abdomen: Soft Extremities: No peripheral edema Neuro: Oriented to person, place and time, alert, cooperative CARDIOVASCULAR MEDICINE TESTING: Electrocardiogram: NORMAL SINUS RHYTHM MINIMAL VOLTAGE CRITERIA FOR LVH, MAY BE NORMAL VARIANT ( Javy product ) NONSPECIFIC T WAVE ABNORMALITY ABNORMAL ECG I have personally reviewed the above tests. IMPRESSION: Della Love is a 77 year old female from [place], [place] here today for pre op cardiovascular evaluation prior to anterior discectomy, osteophytectomy decompress cord/nerve root on 06/19/22 She was seen by technical supervisor 09/16/21. Summary for visit attached & reassuring pre-op cardiac tests. PLAN AND RECOMMENDATIONS: Acceptable risk to proceed with surgery as planned Carpal tunnel, spinal stenosis, PAF - consider amyloid - offered screening with PyP and labs in post-op setting Post-op, consider restarting coumadin but d/c aspirin from a risk / benefit perspective in view of prior falls / bleeding Consider Watchman implantation if bleeding issues with coumadin CONTACT INFORMATION: Louis Grant MD, PhD, REBECCA, [facility], FACC nurse office, [facility], Co-Director Cardio-Oncology Center, Solar Engineer Echo Lab, Staff, Section of Cardiovascular Imaging, [facility] Dept. Of Cardiovascular Medicine, [address] [place], [place] [address] Appt: [phone] documented in this encounter [facility] 06-09-2022 Miscellaneous Notes Called and spoke to patient letting her know surgery recommendations on stopping Aspirin 7 days prior and Coumadin 5 days prior to surgery. Patient agreeable. Nancy Guzmán LPN Received surgery recommendation letter back from Dr. Salinas. Agreeable for patient to stop Aspirin 7 days and Coumadin 5 days prior to surgery. Nancy Guzmán LPN Received last office visit, EKG and stress test from [facility]. Copy made for Henna Arnett CNP and originals sent to ross furnace operator to scan. Nancy Guzmán LPN Fax request sent to [facility] for patients EKG completed April 2022. Nancy Guzmán LPN documented in this encounter [facility] 06-09-2022 Instructions Henna Arnett APRN.CARLOS - 06/09/2022 10:34 AM EDT PATIENT PREOPERATIVE INSTRUCTIONS Milo Menchaca MD has scheduled you for your procedure at this surgery center: [facility] Scheduling Office: [phone] --[address] [place] [address]. Please read below carefully for your personalized instructions. Dietary Restrictions: - No solid food after midnight. - You may have 12 ounces of clear liquids (water, clear juices such as apple juice or gatorade, carbonated beverages, clear tea, black coffee, jello) until 2 hours before scheduled arrival at facility. Medications: Unless instructed differently below, stay on all of your medications until your surgery. Approved medications to take the morning of surgery with a sip of water: Atorvastatin, Duloxetine, Flecainide, Loratadine, Metoprolol, Omeprazole DO NOT TAKE YOUR Lisinopril THE NIGHT BEFORE OR MORNING OF SURGERY If you start any new medications after today's visit, please contact the surgeon's office. Blood Thinning Medications: - Stop NSAIDS (Ibuprofen, Advil, Aleve, Motrin, Celebrex, Mobic, etc.) 7 days before surgery, as directed by your surgeon. - Stop Aspirin 7 days before surgery, as directed by your surgeon. - Do NOT stop aspirin or other anticoagulants without consulting with your technical supervisor or prescribing physician. - Stop Vitamin E, ALL multi-vitamins, herbals and dietary supplements 7 days before surgery. - You may take Tylenol (Acetaminophen) or any of your pain medications that do not contain aspirin or NSAIDS as needed. Important Reminders: - If you use CPAP/BIPAP, bring the machine with you to the surgery center. - If you are prescribed inhalers for breathing, continue using them. - Candy, mints, and tobacco products are NOT permitted the morning of surgery. - Hearing aids, dentures and glasses may be worn the morning of surgery. - NO jewelry, body piercings, makeup, hairpins or contacts are to be worn the day of surgery. If you develop symptoms such as a fever, cold, or flu, or have other changes to your health within TWO DAYS of scheduled surgery or the morning of surgery, please contact the surgery center above. Personal Belongings: -Please have photo ID and insurance cards. -If you do not have a copy of advance directives on file with us, please bring a copy with you on the day of surgery. - Leave ALL valuables and money at home or with family members. For Outpatient Procedures: - YOU MUST HAVE A RESPONSIBLE LEGAL RESEARCHER TAKE YOU HOME. A PROMOTIONS OFFICER OR NURSING INFORMATICS SPECIALIST CANNOT BE MADE A RESPONSIBLE LEGAL RESEARCHER. - We recommend that a responsible person stays with you overnight to take care of you. - You cannot stay in a hotel alone after outpatient surgery. You will not be permitted to have your surgery, if you do not have someone to take care of you. Arrival Time for Surgery: - To obtain your arrival time for surgery, call your physician's office the day before your surgery. - If your surgery is scheduled for Thursday, call the Thursday before. Your surgeon s transition nurse will tell you what time to call the office. - If you have not reached the departmental transition nurse by 5 P.M., call [phone] after 5 P.M. the day before your surgery. Please be aware that emergency situations arise, which may delay or change your surgical time. If this happens, we will notify you as soon as possible and regret any inconvenience. If you already have an Advance Directive, please fax a copy to [phone] or email to for it to be added to your chart. If you do not have an Advance Directive, you can find the appropriate form and more information at [email or web address]. We recommend that you complete the Advance Directive form found on the website and bring it with you the day of your surgery. It can be witnessed and scanned into your chart that day. Henna Arnett APRN.CARLOS documented in this encounter [facility] 06-09-2022 History and physical note HISTORY AND PHYSICAL EXAMINATION SERVICE DATE: 06/09/2022 SERVICE TIME: 10:29 AM PRIMARY CARE PHYSICIAN: Melissa Moran REASON FOR VISIT: Della Love is a 77 year old female who is scheduled for Procedure(s): ARTHRODESIS ANT DISC PREP DISCECTOMY OSTEOPHYTECTOMY DECOMPRES S CORD/NERVE ROOT C' BELOW C2 (N/A) ANTERIOR INSTRUMENTATION 3 VERTEBRAL SEGMENTS (N/A) SPINE ALLOGRAFT (N/A) MICROSURGICAL TECHNIQUE FOR SPINAL PROCEDURES (N/A) at the request of Dr. Milo Menchaca for consultation. My final recommendation will be communicated back to the requesting physician by way of shared medical record or letter. Subjective The patient has the following: ACTIVE PROBLEM LIST Hemorrhage of Rectum and Anus Paroxysmal Atrial Fibrillation (Hcc) Mixed Hyperlipidemia Essential Hypertension, Benign History of Transient Ischemic Attack (Tia) Skin Cancer Anxiety Urinary Incontinence Cervical Disc Disease With Myelopathy COVID-19 Immunization Status COVID-19 VACCINE (Series Information) Completed 02/11/2022 Imm Admin: COVID-19 vaccine, full dose (MODERNA) 10/02/2021 Imm Admin: COVID-19 vaccine, full dose (MODERNA) 01/09/2021 Imm Admin: COVID-19 vaccine, full dose (MODERNA) Only the first 3 history entries have been loaded, but more history exists. CHIEF COMPLAINT: Pre-op exam HPI: DB is a 77 yo seen for PAC due to scheduled above surgery because of cervical disc disorder with myelopathy. 05/28/2022 Dr. Menchaca HISTORY OF PRESENT ILLNESS: Della Love is a 77 year old female with PMHx of CVA, HTN, HLD, and Afib (currently on warfarin) who was referred to Dr. Menchaca for evaluation of difficulty walking, upper/mid back pain, bilateral arm pain and paresthesias x 1 month. Patient reports symptoms started on April 21 when she experienced a severe mid thoracic back pain that radiated anteriorly to chest, stomach, and throughout her entire body . Since then, she reports a dull ache in her mid back and a severe burning right upper extremity pain from her posterior right scapula to all five fingers that is constant. 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 She reports chronic neck pain x years. Additionally, she has fallen 5 times in last month due to her legs giving out from under her. Pain is better with rest, ice and heat and is worse with activity and when standing for long periods of time. Also, she reports urinary incontinence that began at the same time as her back and arm symptoms. She denies bowel incontinence and saddle anesthesia. CHIEF COMPLAINT: difficulty walking, bilateral arm pain and paresthesias PRECIPITATING EVENT: None DURATION OF SYMPTOMS: Less Than 6 Weeks AMBULATORY STATUS: Impaired Home Distances ANTIPLATELET OR ANTICOAGULATION STATUS: Yes Atrial Fibrillation on warfarin PREVIOUS CONSERVATIVE TREATMENTS: Taking tramadol 50 mg as needed. Taking extra strength tylenol (2 in the AM and 2 in PM). Previously received cervical spine steroid injections for 2.5 years which she reports did help her neck pain. PREVIOUS SPINAL SURGERY: None REVIEW OF SYSTEMS: General: No weight loss, malaise or fevers. Neurological: Positive for: peripheral neuropathy and TIA (2003). Negative for: cerebral palsy, SUPERVISOR GRADING tumor, headaches, hemiplegia, multiple sclerosis, Parkinson's disease, seizures and strokes. Respiratory: No history of current cough or dyspnea, or pneumonia in the past 6 weeks. No history of respiratory/pulmonary symptoms or problems. Cardiovascular: Positive for: anticoagulation therapy (Coumadin), atrial fibrillation (on rx), hyperlipidemia (on rx) and hypertension (on rx) Negative for: arrhythmia, CAD, chest pain, CHF, congenital heart defect, DVT/PE, recent NE, murmur/valvular heart disease, open heart surgery and valve surgery. GI: Positive for: GERD (on rx) Negative for: abdominal pain, dysphagia, hepatitis, irritable bowel syndrome, inflammatory bowel disease, liver disease, nausea, pancreatitis, vomiting and ETOH >2 drinks/day. : Positive for: urinary incontinence (2/2 HPI). Negative for: nephrolithiasis, renal failure and urinary tract infection. NEIGHB[employer]HO[employer]ICE C[facility] DIRECTOR: Negative for abnormal vaginal bleeding, abnormal vaginal discharge. Endocrine: No history of diabetes. Has not taken steroids within the past 30 days. No history of endocrinological symptoms or problems. Hematology: Positive for: bruises/bleeds easily and chronic anti-coagulation/platelet meds. Patient is on anti-coagulation/platelet medication(s): Coumadin. Negative for: anemia and transfusion of at least 4 units within 72 hours prior to surgery. Oncology: +BCC/SCC s/p excision Psych: Positive for: anxiety (situational). Musculoskeletal: See HPI. Positive for: back pain (LBP) and joint pain. Skin: Negative for lesions, rash and itching. PAST MEDICAL HISTORY Diagnosis Date Essential hypertension, benign External hemorrhoids without mention of complication Hemorrhage of gastrointestinal tract, unspecified Hemorrhage of rectum and anus Internal hemorrhoids without mention of complication Other specified cardiac dysrhythmias(427.89) Pure hypercholesterolemia Toe injury PAST SURGICAL HISTORY Procedure Laterality Date APPENDECTOMY DILATION & CURETTAGE DX&/THER NONOBSTETRIC Dilation & curettage HEMORRHOIDECTOMY INT & XTRNL 2/> COLUMN/JENNA POST-CATARACT LASER SURGERY SIGMOIDOSCOPY FLX DX W/COLLJ SPEC BR/WA IF PFRMD 02/17/2008 TONSILLECTOMY PRIMARY/SECONDARY <AGE 12 Tonsillectomy TOTAL ABDOMINAL HYSTERECT W/WO RMVL TUBE OVARY Hysterectomy, ALEX FAMILY HISTORY Adopted: Yes Problem Relation Age of Onset Essential Tremor Brother Social History Tobacco Use Smoking status: Never Smokeless tobacco: Never Vaping Use Vaping Use: Never used Substance Use Topics Alcohol use: No Drug use: Never Prior to Admission medications as of 05/28/22 1410 Medication Sig Last Dose Taking DULoxetine (CYMBALTA) 60 mg capsule Take 60 mg by mouth once daily. traMADol (ULTRAM) 50 mg tablet Take 50 mg by mouth as needed. metoprolol succinate ER (TOPROL XL) 50 mg 24 hr tablet Take 50 mg by mouth twice daily. simvastatin (ZOCOR) 10 mg tablet Take 10 mg by mouth daily at bedtime. Omeprazole 20 mg TbEC Take by mouth. WARFARIN SODIUM (COUMADIN ORAL) Take by mouth. hydrocortisone acetate(ANUSOL-HC 25 MG SUPPOSITORY) Insert (1) rectally at bedtime as needed LISINOPRIL 10 MG TAB Take one(1) tablet daily. atorvastatin calcium(LIPITOR 10 MG TAB) Take one(1) tablet daily. ezetimibe(ZETIA 10 MG TAB) Take one(1) tablet daily. verapamil hcl(VERELAN PM 200 MG 24 HR CAP) Take one(1) tablet at night aspirin(ECOTRIN LOW STRENGTH 81 MG TAB) Take one(1) tablet daily. cyclobenzaprine hcl(FLEXERIL 10 MG TAB) Take one(1) tablet daily. PRN MEDICATION, NON-DATABASE Glucosamine 1500 mg/Chondroitin 200 mg Take one(1) tablet daily. calcium carb/vit d3/minerals(CALTRATE PLUS 600 MG-400 UNIT TAB) Take by mouth once daily. Taking two tablets one time a day polyethylene glycol 3350(MIRALAX 100 % ORAL POWDER) Use as directed. No medication comments found. ALLERGIES Allergen Reactions Codeine Vomiting Prednisone tachycardia and low back pain Objective PHYSICAL EXAM: General: alert and oriented (x3), healthy appearance and obese. Pertinent negatives noted - not distressed. Skin: normal color, no rash or lesions. HEENT: EOM intact and pupils equal round. Pertinent negatives noted - no carotid bruit. Cardiovascular: regular rate and rhythm, normal S1 and S2, no rub, murmurs, or gallop. Respiratory: normal breath sounds, no wheezes or crackles. No chest wall deformity or tenderness. Abdomen: soft. Pertinent negatives noted - not tender. Extremities: no deformity, no edema or tenderness, no joint swelling or clubbing. Neurological: normal cognition and motor skills. Gait normal. No weakness or sensory deficit. PAIN ASSESSMENT: Pain Pain Level: 3 Pain Location: Back (hands) Description: Aching;Other: See comment ( [place] ) Duration Amount of Time: 1 Duration Units: Months Frequency: Continuous Intervention/Comfort measure: Medication VITALS: BP 130/78 Pulse 80 Temp (Src) 96.9 (Temporal) Resp 16 Ht 5' 3 (1.60m) Wt 168 lb (76.2kg) SpO2 96% BMI 29.77 kg/(m^2). Diagnostic tests reviewed for today's visit: Lab Value Units Date High Low HB No results within date range. HCT No results within date range. WBC No results within date range. PLT No results within date range. NA No results within date range. K No results within date range. GLUC No results within date range. BUN No results within date range. CREAT No results within date range. PTSEC No results within date range. INR No results within date range. APTT No results within date range. ALT No results within date range. AST No results within date range. TBILI No results within date range. TSH No results within date range. Lab Value Units Date High Low HCGQT No results within date range. UHCG No results within date range. HCG, BODY* No results within date range. Lab Value Units Date High Low ABORHD No results within date range. ABSCREEN No results within date range. No results found for: HBA1C No results found for this or any previous visit (from the past 8760 hour(s)). No results found for this or any previous visit (from the past 86769 hour(s)). Assessment History of transient ischemic attack (TIA) Assessment: hx, 2004, daily ASA and Coumadin therapy, hx afib Anxiety Assessment: stable on rx Mixed hyperlipidemia Assessment: c/w statin Essential hypertension, benign Assessment: controlled on rx Last 14 BP Last 14 Encounter BP Readings: Date: BP: 06/09/2022 130/78 05/28/2022 111/62 08/02/2016 128/70 01/27/2008 112/68\ Paroxysmal atrial fibrillation (HCC) Assessment: rate controlled on rx, daily Coumadin, AC letter faxed to current technical supervisor. Pt states had recent stress/echo 04/2022 at [facility], documents requested from there and technical supervisor office, [facility], Dr. Salinas. Surgeon's office set up cardiac clearance appt 06/16/2022 at . Skin cancer Assessment: BCC/SCC s/p excision Urinary incontinence Assessment: 2/2 HPI Mendez Activity Status Index: METS: Climb a flight of stairs or walk up a hill (5.50 METs) DASI Score: 5.5 Patient denies any chest pain or undue shortness of breath with the above physical activity. Clinical Frailty Scale: 3. Well, with treated comorbid disease STOP-Bang Score: Patient over 50 years old Denies snoring loudly Denies feeling tired, fatigued, or sleepy during the daytime Has not been observed to stop breathing or choking/gasping during sleep Denies having high blood pressure BMI less than or equal to 35 kg/m^2 Does not have a large neck Non-male patient STOP-Bang Score: 1 [id number] Score: Age: >=75 Sex: female CHF history: No Hypertension history: Yes Stroke/TIA/thromboembolism history: Yes Vascular disease history: No Diabetes history: No [id number] Score: 6 ARISCAT Score: Age: 51-80 Preoperative SpO2: >=96% Respiratory infection in the last month: No Preoperative anemia: No Surgical incision: peripheral Duration of surgery: <2 hrs Emergency procedure: No ARISCAT Score: 3 ASA Class: 3 ANESTHESIA FINDINGS: Intubation History: No history of difficult intubation Significant Anesthesia Considerations: potential postop nausea/vomiting Airway History: No history of difficult airway I - PHYSICAL EVALUATION AIRWAYTracheostomy tube not present Mallampati: II. TM distance: >3 FB. Neck ROM: parasthesia with flexion and extension. Mouth opening: adequate. Short neck: no. Thick neck: no DENTAL Dental findings: teeth intact. II - ANESTHESIA PLAN ASA Score: 3 Anesthetic Plan: other Anesthetic plan additional comments: *PACC/TCI - anesthesia choice. Informed Consent Anesthetic risks, benefits, alternatives, personnel and consent discussed: yes. Patient / Responsible Alliance Party agrees to proceed: yes Patient / Surrogate agrees to blood products: Yes Prepared for Surgery: optimally prepared for surgery, pending [see comment]. Labs and EKG CONSULTS: Patient does not require consults for optimization at this time Planned Anesthetic: other anesthesia choice The Following Tests/Procedures Have Been Initiated: Orders Placed This Encounter multivit-min/iron/folic acid/K (ADULTS MULTIVITAMIN ORAL) Sig: Take by mouth. loratadine (CLARITIN) 10 mg tablet Sig: Take 10 mg by mouth once daily. flecainide (TAMBOCOR) 50 mg tablet Sig: Take 50 mg by mouth twice daily. warfarin (COUMADIN) 3 mg tablet Sig: Take 3 mg by mouth daily as directed. cholecalciferol (VITAMIN D) 1,000 unit tab tablet Sig: Take 1,000 Units by mouth once daily. acetaminophen (TYLENOL EXTRA STRENGTH ORAL) Sig: Take by mouth. Instructions Given to Patient: Instructions located in the after visit summary. Patient given verbal and written preop instructions and voices comprehension and compliance. SIGNATURE: Henna Arnett APRN.CNP PATIENT NAME: Della Love DATE: June 09, 2022 TIME: 10:29 AM PAGER/CONTACT #: documented in this encounter [facility] 05-28-2022 Note HNO ID: [id number] Author: Hansa Clifton RN Service: ? Author Type: Registered Nurse Type: Progress Notes Filed: 05/28/2022 4:13 PM Note Text: CC: Preop visit - Preop instruction, nasal swab Reinforced postoperative instructions. Surgical Guide and contact information provided. Nasal swab obtained and sent for MRSA culture. Skin prep instructions reviewed and cleansers provided. Per Dr. Menchaca - pt will need cardiology consult for clearance. She is on coumadin - would like off for 3-5 days prior and one week after - will defer to cardiology for final recommendation. Hansa Clifton RN [facility] 05-28-2022 History of Present illness Narrative CC: Preop visit - Preop instruction, nasal swab Reinforced postoperative instructions. Surgical Guide and contact information provided. Nasal swab obtained and sent for MRSA culture. Skin prep instructions reviewed and cleansers provided. Per Dr. Menchaca - pt will need cardiology consult for clearance. She is on coumadin - would like off for 3-5 days prior and one week after - will defer to cardiology for final recommendation. Hansa Clifton RN documented in this encounter [facility] 05-28-2022 Note HNO ID: [id number] Author: Milo Menchaca MD Service: ? Author Type: Physician Type: Progress Notes Filed: 05/28/2022 5:15 PM Note Text: SPINE SURGERY NEW PATIENT PCP: No Pcp REFERRING PROVIDER: Dr. Bowen Mott SUBJECTIVE HISTORY OF PRESENT ILLNESS: Della Love is a 77 year old female with PMHx of CVA, HTN, HLD, and Afib (currently on warfarin) who was referred to Dr. Menchaca for evaluation of difficulty walking, upper/mid back pain, bilateral arm pain and paresthesias x 1 month. Patient reports symptoms started on April 21 when she experienced a severe mid thoracic back pain that radiated anteriorly to chest, stomach, and throughout her entire body . Since then, she reports a dull ache in her mid back and a severe burning right upper extremity pain from her posterior right scapula to all five fingers that is constant. 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 She reports chronic neck pain x years. Additionally, she has fallen 5 times in last month due to her legs giving out from under her. Pain is better with rest, ice and heat and is worse with activity and when standing for long periods of time. Also, she reports urinary incontinence that began at the same time as her back and arm symptoms. She denies bowel incontinence and saddle anesthesia. CHIEF COMPLAINT: difficulty walking, bilateral arm pain and paresthesias PRECIPITATING EVENT: None DURATION OF SYMPTOMS: Less Than 6 Weeks AMBULATORY STATUS: Impaired Home Distances ANTIPLATELET OR ANTICOAGULATION STATUS: Yes Atrial Fibrillation on warfarin PREVIOUS CONSERVATIVE TREATMENTS: Taking tramadol 50 mg as needed. Taking extra strength tylenol (2 in the AM and 2 in PM). Previously received cervical spine steroid injections for 2.5 years which she reports did help her neck pain. PREVIOUS SPINAL SURGERY: None ACTIVE PROBLEM LIST Hemorrhage of Rectum and Anus PAST MEDICAL HISTORY Diagnosis Date Essential hypertension, benign External hemorrhoids without mention of complication Hemorrhage of gastrointestinal tract, unspecified Hemorrhage of rectum and anus Internal hemorrhoids without mention of complication Other specified cardiac dysrhythmias(427.89) Pure hypercholesterolemia PAST SURGICAL HISTORY Procedure Laterality Date APPENDECTOMY DANDC, DIAG AND/OR THERAPEUTIC Dilation AND curettage HEMORRHOIDECTOMY,INT/EXT,COMPLX REMOVAL OF TONSILS,<12 Y/O Tonsillectomy SIGMOIDOSCOPY FLEX DIAG 02/17/08 TOTAL ABDOM HYSTERECTOMY Hysterectomy, ALEX No family history on file. Social History Tobacco Use Smoking status: Never Substance Use Topics Alcohol use: No ALLERGIES Allergen Reactions Codeine Vomiting Prednisone tachycardia and low back pain MEDICATIONS: simvastatin (ZOCOR) 10 mg tablet Take 10 mg by mouth daily at bedtime. Omeprazole 20 mg TbEC Take by mouth. WARFARIN SODIUM (COUMADIN ORAL) Take by mouth. hydrocortisone acetate(ANUSOL-HC 25 MG SUPPOSITORY) Insert (1) rectally at bedtime as needed LISINOPRIL 10 MG TAB Take one(1) tablet daily. atorvastatin calcium(LIPITOR 10 MG TAB) Take one(1) tablet daily. ezetimibe(ZETIA 10 MG TAB) Take one(1) tablet daily. verapamil hcl(VERELAN PM 200 MG 24 HR CAP) Take one(1) tablet at night aspirin(ECOTRIN LOW STRENGTH 81 MG TAB) Take one(1) tablet daily. cyclobenzaprine hcl(FLEXERIL 10 MG TAB) Take one(1) tablet daily. PRN MEDICATION, NON-DATABASE Glucosamine 1500 mg/Chondroitin 200 mg Take one(1) tablet daily. calcium carb/vit d3/minerals(CALTRATE PLUS 600 MG-400 UNIT TAB) Take one(1) tablet two(2) times daily. polyethylene glycol 3350(MIRALAX 100 % ORAL POWDER) Use as directed. REVIEW OF SYSTEMS: GENERAL: No weight loss or malaise MUSCULOSKELETAL: Negative for joint pain, swelling or muscle pain NEURO: No history of headaches, syncope, paralysis, seizures or tremors OBJECTIVE: PHYSICAL EXAM GENERAL APPEARANCE: Well nourished, well developed, and no apparent distress. NEURO PSYCH: Patient oriented to person, place, and time. Mood pleasant. Benign affect. MUSCULOSKELETAL VISUAL INSPECTION CERVICAL: WNL THORACIC: WNL LUMBAR: WNL MOTOR: 5/5 in all muscle groups. SENSORY: blunted sensation of right C6 dermatome when compared bilaterally GAIT: myelopathic gait, very unsteady REFLEXES: +2 to bilateral U/L extremities. PROPRIOCEPTION: Normal. LONG TRACT SIGNS: No clonus. No Hoffmans. DATA REVIEW CT cervical spine w/o contrast 04/22/22: Impression: Multilevel degenerative changes MRI cervical and thoracic spine 04/23/22: severe spinal canal stenosis at C3-4 and myelomalacia, small central protrusion at T8-T9 ASSESSMENT/PLAN Della Love is a 77 year old female with PMHx of CVA, HTN, HLD, and Afib (currently on warfarin) who was referred to Dr. Menchaca for evaluation of difficulty walking with numerous falls, severe burning right arm pain, weakness and par (more content not included)... [facility] 05-28-2022 History of Present illness Narrative SPINE SURGERY NEW PATIENT PCP: No Pcp REFERRING PROVIDER: Dr. Bowen Mott SUBJECTIVE HISTORY OF PRESENT ILLNESS: Della Love is a 77 year old female with PMHx of CVA, HTN, HLD, and Afib (currently on warfarin) who was referred to Dr. Menchaca for evaluation of difficulty walking, upper/mid back pain, bilateral arm pain and paresthesias x 1 month. Patient reports symptoms started on April 21 when she experienced a severe mid thoracic back pain that radiated anteriorly to chest, stomach, and throughout her entire body . Since then, she reports a dull ache in her mid back and a severe burning right upper extremity pain from her posterior right scapula to all five fingers that is constant. 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 She reports chronic neck pain x years. Additionally, she has fallen 5 times in last month due to her legs giving out from under her. Pain is better with rest, ice and heat and is worse with activity and when standing for long periods of time. Also, she reports urinary incontinence that began at the same time as her back and arm symptoms. She denies bowel incontinence and saddle anesthesia. CHIEF COMPLAINT: difficulty walking, bilateral arm pain and paresthesias PRECIPITATING EVENT: None DURATION OF SYMPTOMS: Less Than 6 Weeks AMBULATORY STATUS: Impaired Home Distances ANTIPLATELET OR ANTICOAGULATION STATUS: Yes Atrial Fibrillation on warfarin PREVIOUS CONSERVATIVE TREATMENTS: Taking tramadol 50 mg as needed. Taking extra strength tylenol (2 in the AM and 2 in PM). Previously received cervical spine steroid injections for 2.5 years which she reports did help her neck pain. PREVIOUS SPINAL SURGERY: None ACTIVE PROBLEM LIST Hemorrhage of Rectum and Anus PAST MEDICAL HISTORY Diagnosis Date Essential hypertension, benign External hemorrhoids without mention of complication Hemorrhage of gastrointestinal tract, unspecified Hemorrhage of rectum and anus Internal hemorrhoids without mention of complication Other specified cardiac dysrhythmias(427.89) Pure hypercholesterolemia PAST SURGICAL HISTORY Procedure Laterality Date APPENDECTOMY D&C, DIAG AND/OR THERAPEUTIC Dilation & curettage HEMORRHOIDECTOMY,INT/EXT,COMPLX REMOVAL OF TONSILS,<12 Y/O Tonsillectomy SIGMOIDOSCOPY FLEX DIAG 02/17/08 TOTAL ABDOM HYSTERECTOMY Hysterectomy, ALEX No family history on file. Social History Tobacco Use Smoking status: Never Substance Use Topics Alcohol use: No ALLERGIES Allergen Reactions Codeine Vomiting Prednisone tachycardia and low back pain MEDICATIONS: simvastatin (ZOCOR) 10 mg tablet Take 10 mg by mouth daily at bedtime. Omeprazole 20 mg TbEC Take by mouth. WARFARIN SODIUM (COUMADIN ORAL) Take by mouth. hydrocortisone acetate(ANUSOL-HC 25 MG SUPPOSITORY) Insert (1) rectally at bedtime as needed LISINOPRIL 10 MG TAB Take one(1) tablet daily. atorvastatin calcium(LIPITOR 10 MG TAB) Take one(1) tablet daily. ezetimibe(ZETIA 10 MG TAB) Take one(1) tablet daily. verapamil hcl(VERELAN PM 200 MG 24 HR CAP) Take one(1) tablet at night aspirin(ECOTRIN LOW STRENGTH 81 MG TAB) Take one(1) tablet daily. cyclobenzaprine hcl(FLEXERIL 10 MG TAB) Take one(1) tablet daily. PRN MEDICATION, NON-DATABASE Glucosamine 1500 mg/Chondroitin 200 mg Take one(1) tablet daily. calcium carb/vit d3/minerals(CALTRATE PLUS 600 MG-400 UNIT TAB) Take one(1) tablet two(2) times daily. polyethylene glycol 3350(MIRALAX 100 % ORAL POWDER) Use as directed. REVIEW OF SYSTEMS: GENERAL: No weight loss or malaise MUSCULOSKELETAL: Negative for joint pain, swelling or muscle pain NEURO: No history of headaches, syncope, paralysis, seizures or tremors OBJECTIVE: PHYSICAL EXAM GENERAL APPEARANCE: Well nourished, well developed, and no apparent distress. NEURO PSYCH: Patient oriented to person, place, and time. Mood pleasant. Benign affect. MUSCULOSKELETAL VISUAL INSPECTION CERVICAL: WNL THORACIC: WNL LUMBAR: WNL MOTOR: 5/5 in all muscle groups. SENSORY: blunted sensation of right C6 dermatome when compared bilaterally GAIT: myelopathic gait, very unsteady REFLEXES: +2 to bilateral U/L extremities. PROPRIOCEPTION: Normal. LONG TRACT SIGNS: No clonus. No Hoffmans. DATA REVIEW CT cervical spine w/o contrast 04/22/22: Impression: Multilevel degenerative changes MRI cervical and thoracic spine 04/23/22: severe spinal canal stenosis at C3-4 and myelomalacia, small central protrusion at T8-T9 ASSESSMENT/PLAN Della Love is a 77 year old female with PMHx of CVA, HTN, HLD, and Afib (currently on warfarin) who was referred to Dr. Menchaca for evaluation of difficulty walking with numerous falls, severe burning right arm pain, weakness and paresthesias x [address] Menchaca reviewed the patient's MRI which revealed severe cervical stenosis at C3-4. Treatment options were discussed with the patient and Dr. Menchaca recommends C3-4 anterior cervical diskectomy and fusion. Risks, benefits and complications of the surgery were discussed in detail and the patient elected to proceed with surgery. Informed consent was obtained and pre op nursing education visit was performed. Patient will need cardiology clearance prior to the operation and will need to stop her Warfarin five days prior to surgery. All questions and concerns were answered and addressed. William Reyes PA-C May 28, 2022 4:25 PM I spent 45 minutes in the visit, with more than 50% of the total [id number] time of the visit in counseling / coordination of care. This was in regards to her cervical myelopathy and the treatment for it (C3/4 ACDF) She and her sister asked appropriate questions. She may require rehab after surgery. We reviewed films together. Milo Menchaca MD This statement must be followed by what you counseled or coordinated care on Example was devoted to counseling about his cancer and Rx options, and details of the brachy procedure SIGNATURE: Milo Menchaca MD PATIENT NAME: Della Love DATE: May 28, 2022 TIME: 2:00 PM PAGER: documented in this encounter [facility] 05-08-2022 Note HNO ID: [id number] Author: Monty Britt APRN.CARLOS Service: ? Author Type: Nurse Practitioner Type: Progress Notes Filed: 05/14/2022 12:57 PM Note Text: Spine Triage Review Della Love is a 77 year old female who is referred by Dr. Bowen Mott for upper/mid back pain, bilateral arm/leg pain, difficulty walking, numbness and weakness. Prior Spine Surgery N/A Recent Imaging CT Cervical Spine WO 04/22/2022: MRI (images in Epic) reivew per Dr. Guaman: Recent Conservative Management Treatments (CMT's) Cymbalta Tylenol Comorbidities Hx of CVA HTN HLD Afib (On Warfarin) Recommendations Please offer add-on visit with Dr. Menchaca on 05/28/22 at 2:15 PM Will route to scheduling pool for assistance Monty Britt APRN.CNP 05/08/22 2:06 PM [facility] 05-08-2022 History of Present illness Narrative Images from the original note were not included. Spine Triage Review Della Love is a 77 year old female who is referred by Dr. Bowen Mott for upper/mid back pain, bilateral arm/leg pain, difficulty walking, numbness and weakness. Prior Spine Surgery N/A Recent Imaging CT Cervical Spine WO 04/22/2022: MRI (images in Epic) reivew per Dr. Guaman: Recent Conservative Management Treatments (CMT's) Cymbalta Tylenol Comorbidities Hx of CVA HTN HLD Afib (On Warfarin) Recommendations Please offer add-on visit with Dr. Menchaca on 05/28/22 at 2:15 PM Will route to scheduling pool for assistance Monty Britt APRN.CNP 05/08/22 2:06 PM Patient name: Della Love Are you being referred by a Center for Sp[facility] Health Provider or Pain Management Provider at [facility]? No If answer is YES please schedule directly with surgeon, triage does not need to be completed. Is this a self-referral No If not, who is the Referring Provider Dr. Bowen Mott Is this a 2nd opinion, have you been offered surgery by another surgeon? No MRI/CT/myelogram within 12 months? Yes If NO , please refer to medical spine or PCP to complete above imaging, triage does not need to be completed If YES, please ask for the name/address of the facility where the MRI/CT/myelogram was completed: [facility] [address] [place] [address] MRI/CT/myelogram viewable in Epic: No If not, please provide [phone] to fax in imaging reports for review. Also, please inform patient to hand carry imaging disc to appointment. XR (spine) within 12 months: No If YES, please ask for the name/address of the facility where the XR was completed: Dr. Ritter's patients: Have you had previous EMG/Nerve Conduction Study, Ultrasound, or MRI for these same symptoms? If YES, please ask for the name/address of the facility where they were completed: Requested provider (First and Last name): Dr. Menchaca Are you interested in a virtual visit if offered? 1. Where are you having symptoms related to this visit? Back pain Yes upper/mid back Leg pain Yes bilateral Arm pain Yes bilateral Neck pain Yes 2. Are you having any of the following symptoms: Difficulty walking Yes uses a walker Numbness Yes fingers, feet Weakness Yes legs, arms Trouble using your hands? Yes 3. Have you had any injections or physical therapy in the last 12 months? No If YES then please ask for the name/address of the facility where the injections and/or physical therapy was completed Have you tried any other kinds of non-surgical treatments in the last 12 months? (For example: NSAIDS, muscle relaxants, analgesics, oral steroids, Chiropractor, Acupuncture): Cymbalta, Tylenol, warfarin 4. Are you currently taking daily prescribed narcotic medications for your current symptoms (For example Oxycodone, Hydrocodone, Tramadol, Morphine, Other)? No 5. Have you had previous spinal surgery for this same symptoms? No If YES please ask for the name of facility/address of where the surgery was completed: Additional Comments [phone] documented in this encounter [facility] 04-30-2022 Note HNO ID: [id number] Author: Delfina Guzmán Research Coordinator Service: ? Author Type: Research Type: Progress Notes Filed: 05/14/2022 12:57 PM Note Text: Patient name: Della Love Are you being referred by a [facility] Spine Health Provider or Pain Management Provider at [facility]? No If answer is YES please schedule directly with surgeon, triage does not need to be completed. Is this a self-referral No If not, who is the Referring Provider Dr. Bowen Mott Is this a 2nd opinion, have you been offered surgery by another surgeon? No MRI/CT/myelogram within 12 months? Yes If NO , please refer to medical spine or PCP to complete above imaging, triage does not need to be completed If YES,? please ask for the name/address of the facility where the MRI/CT/myelogram was completed: [address] [address] MRI/CT/myelogram viewable in Epic: No If not, please provide [phone] to fax in imaging reports for review. Also, please inform patient to hand carry imaging disc to appointment. XR (spine) within 12 months: No If YES,? please ask for the name/address of the facility where the XR was completed: Dr. Ritter's patients: Have you had previous EMG/Nerve Conduction Study, Ultrasound, or MRI for these same symptoms? If YES,? please ask for the name/address of the facility where they were completed: Requested provider (First and Last name): Dr. Menchaca Are you interested in a virtual visit if offered? 1. Where are you having symptoms related to this visit? Back pain Yes upper/mid back Leg pain Yes bilateral Arm pain Yes bilateral Neck pain Yes 2. Are you having any of the following symptoms: Difficulty walking Yes uses a walker Numbness Yes fingers, feet Weakness Yes legs, arms Trouble using your hands? Yes 3. Have you had any injections or physical therapy in the last 12 months? No If YES then please ask for the name/address of the facility where the injections and/or physical therapy was completed Have you tried any other kinds of non-surgical treatments in the last 12 months? (For example: NSAIDS, muscle relaxants, analgesics, oral steroids, Chiropractor, Acupuncture): Cymbalta, Tylenol, warfarin 4. Are you currently taking daily prescribed narcotic medications for your current symptoms (For example Oxycodone, Hydrocodone, Tramadol, Morphine, Other)? No 5. Have you had previous spinal surgery for this same symptoms? No If YES? 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, cervical region Encounter for therapeutic drug level monitoring Encounter for therapeutic drug monitoring 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, cervical region [facility] Diagnosis Pre-operative examination- Primary Preoperative examination, unspecified Cervical disc disease with myelopathy Intervertebral cervical disc disorder with myelopathy, cervical region Paroxysmal atrial fibrillation (HCC) Atrial fibrillation Mixed hyperlipidemia Essential hypertension, benign 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), and cerebral infarction without residual deficits Skin cancer Unspecified malignant neoplasm of skin, site unspecified Anxiety Anxiety state, unspecified Urinary incontinence, unspecified type 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, cervical region [facility] Diagnosis Preoperative testing- Primary Preoperative examination, unspecified PAF (paroxysmal atrial fibrillation) (HCC) Atrial fibrillation 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, cervical region Carpal tunnel syndrome, unspecified laterality 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, cervical region [facility] Diagnosis Cervical myelopathy (HCC)- Primary Cervical spondylosis with myelopathy [facility] Diagnosis 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, cervical region [facility] Diagnosis Cervical disc disorder with myelopathy of mid-cervical region- Primary Intervertebral cervical disc disorder with myelopathy, cervical region [facility] Diagnostic Procedure Only (Routine) - Authorized Specialty Diagnoses / Procedures Referred By Contac t Referred To Contact XR IMAGING Diagnoses Cervical disc disorder with myelopathy of mid-cervical region Procedures XR CERV GENERAL 2V AP/LAT RADEX SPINE CERVICAL 2 OR 3 VIEWS [facility] [place] [address] [place] [id number] Xr Imaging Referral ID Status Reason Start Date Expiration Date Visits Requested Visits Authorized [id number] Authorized Auto-Generat ed Referral 05/29/2022 06/27/2023 1 1 * Consult, Test, Treat (Routine) - Authorized Specialty Diagnoses / Procedures Referred By Contac t Referred To Contact Cardiology Diagnoses Preoperative testing Cervical disc disorder with myelopathy of mid-cervical region Procedures CONSULT TO CARDIOLOGY OFFICE/OUTPATIENT [facility] MDM 60-74 MINUTES [facility] [address] [place] [address] Referral ID Status Reason Start Date Expiration Date Visits Requested Visits Authorized [id number] Authorized PCP Requested Referral 05/29/2022 05/28/2023 1 1 * Outpatient Procedure (Routine) - Authorized Specialty Diagnoses / Procedures Referred By Contac t Referred To Contact [facility] Diagnoses Preoperative testing Procedures ECG COMPLETE ECG ROUTINE ECG W/LEAST 12 LDS W/I&R [facility] [place] [address] [place] [address] [facility] [address] [place] [address] Referral ID Status Reason Start Date Expiration Date Visits Requested Visits Authorized [id number] Authorized Auto-Generat ed Referral 05/29/2022 05/28/2023 1 1 [facility] for referral (narrative)* Diagnostic Procedure Only (Routine) - Closed Specialty Diagnoses / Procedures Referred By Contac t Referred To Contact XR IMAGING Diagnoses Cervical disc disorder with myelopathy of mid-cervical region Procedures XR CERV GENERAL 2V AP/LAT RADEX SPINE CERVICAL 2 OR 3 VIEWS [facility] [place] [address] [place] [address] Xr Imaging Referral ID Status Reason Start Date Expiration Date V isits Requested Visits Authorized [id number] Closed Auto-Generate d Referral 05/29/2022 06/27/2023 1 1 [facility] Reason for Referral Specialty Diagnoses / Procedures Referred By Contac t Referred To Contact Physical Therapy Diagnoses Cervical disc disorder with myelopathy of mid-cervical region Procedures CONSULT TO PHYSICAL THERAPY [facility] [address] [phone] Referral ID Status Reason Start Date Expiration Date Visits Requested Visits Authorized [id number] Ref Not Required PCP Requested Referral 2 09/04/2023 99 99 Summary Purpose Family History No Family History Records Found Advance Directives No Advanced Directives Records Found Additional Source Comments Source Comments (unrecognize d section and content) In the event this informatio n is protected by the Federal Confidentiality of Alcohol and Drug Abuse Patient Records regulations: The Federal rules restrict any use of the information to criminally investigate or prosecute any alcohol or drug abuse patient.[facility] the event this information is protected by the Federal Confidentiality of Alcohol and Drug Abuse Patient Records regulations: The Federal rules restrict any use of the information to criminally investigate or prosecute any alcohol or drug abuse patient.[facility] the event this information is protected by the Federal Confidentiality of Alcohol and Drug Abuse Patient Records regulations: The Federal rules restrict any use of the information to criminally investigate or prosecute any alcohol or drug abuse patient.[facility] the event this information is protected by the Federal Confidentiality of Alcohol and Drug Abuse Patient Records regulations: The Federal rules restrict any use of the information to criminally investigate or prosecute any alcohol or drug abuse patient.[facility] the event this information is protected by the Federal Confidentiality of Alcohol and Drug Abuse Patient Records regulations: The Federal rules restrict any use of the information to criminally investigate or prosecute any alcohol or drug abuse patient.[facility] the event this information is protected by the Federal Confidentiality of Alcohol and Drug Abuse Patient Records regulations: The Federal rules restrict any use of the information to criminally investigate or prosecute any alcohol or drug abuse patient.[facility] the event this information is protected by the Federal Confidentiality of Alcohol and Drug Abuse Patient Records regulations: The Federal rules restrict any use of the information to criminally investigate or prosecute any alcohol or drug abuse patient.[facility] the event this information is protected by the Federal Confidentiality of Alcohol and Drug Abuse Patient Records regulations: The Federal rules restrict any use of the information to criminally investigate or prosecute any alcohol or drug abuse patient.[facility] the event this information is protected by the Federal Confidentiality of Alcohol and Drug Abuse Patient Records regulations: The Federal rules restrict any use of the information to criminally investigate or prosecute any alcohol or drug abuse patient.[facility] the event this information is protected by the Federal Confidentiality of Alcohol and Drug Abuse Patient Records regulations: The Federal rules restrict any use of the information to criminally investigate or prosecute any alcohol or drug abuse patient.[facility] the event this information is protected by the Federal Confidentiality of Alcohol and Drug Abuse Patient Records regulations: The Federal rules restrict any use of the information to criminally investigate or prosecute any alcohol or drug abuse patient.[facility] Hospital[facility] the event this information is protected by the Federal Confidentiality of Alcohol and Drug Abuse Patient Records regulations: The Federal rules restrict any use of the information to criminally investigate or prosecute any alcohol or drug abuse patient.[facility] Care Teams (unrecognized sec tion and content) Field Engineer Relationship Specialty Start Date End Date Pcp, No PCP - General 05/03/22 11/18/22 Field Engineer Relationship Specialty Start Date End Date Pcp, No PCP - General 05/03/22 11/18/22 Field Engineer Relationship Specialty Start Date End Date Pcp, No PCP - General 05/03/22 11/18/22 Field Engineer Relationship Specialty Start Date End Date Melissa Moran [address] [facility], [place] [phone] (Work) PCP - General 06/06/22 Field Engineer Relationship Specialty Start Date End Date Melissa Moran [address] [facility] [place] [address] PCP - General 06/06/22 Field Engineer Relationship Specialty Start Date End Date Melissa Moran(Historical) PCP - General 06/06/22 Field Engineer Relationship Specialty Start Date End Date Melissa Moran(Historical) PCP - General 06/06/22 Field Engineer Relationship Specialty Start Date End Date Melissa Moran(Historical) PCP - General 06/06/22 Field Engineer Relationship Specialty Start Date End Date Melissa Moran(Historical) PCP - General 06/06/22 Field Engineer Relationship Specialty Start Date End Date Melissa Moran(Historical) PCP - General 06/06/22 Field Engineer Relationship Specialty Start Date End Date Melissa Moran(Historical) PCP - General 06/06/22 Reason for Visit (unrecogniz ed section and content) Reason Comments Consult Reason Comments Patient Update Surgery recommendati ons Reason Comments New Specialty Diagnoses / Procedures Referred By Contac t Referred To Contact Cardiology Diagnoses Preoperative testing Cervical disc disorder with myelopathy of mid-cervical region Procedures CONSULT TO CARDIOLOGY OFFICE/OUTPATIENT NEW HIGH MDM 60-74 MINUTES [facility] [address] [id number] Referral ID Status Reason Start Date Expiration Date V isits Requested Visits Authorized [id number] Closed PCP Requested Referral 05/29/2022 05/28/2023 1 1 Reason Comments Follow Up Post-Op Visit Reason Comments Radio Gen HB6 Specialty Diagnoses / Procedures Referred By Contac t Referred To Contact XR IMAGING Diagnoses Cervical disc disorder with myelopathy of mid-cervical region Procedures XR CERV GENERAL 2V AP/LAT RADEX SPINE CERVICAL 2 OR 3 VIEWS [facility] [address] [phone] Xr Imaging Referral ID Status Reason Start Date Expiration Date V isits Requested Visits Authorized [id number] Closed Auto-Generate d Referral 05/29/2022 06/27/2023 1 1 Reason Comments Other Therapy? Reason Comments Other Metal Plate in Neck, PT for Legs Reason Comments Received Outside Medical Records [facility] INFORMATION SOURCE (unrecogn ized section and content) FOR RECORDS PERTAINING TO PATIENTS WHO ARE OR HAVE BEEN ENROLLED IN A CHEMICAL DEPENDENCY/SUBSTANCEABUSE PROGRAM, SOME INFORMATION MAY BE OMITTED. This clinical summary was aggregated from multiple sources. Caution should be exercised in using it in the provision of clinical care. This summary normalizes information from multiple sources, and as a consequence, information in this document may materially change the coding, format and clinical context of patient data. In addition, data may be omitted in some cases. CLINICAL DECISIONS SHOULD BE BASED ON THE PRIMARY CLINICAL RECORDS. [facility] DEQ [facility]. provides no warranty or guarantee of the accuracy or completeness of information in this document.
[2023-12-08 10:48] LABS: AST(SGOT) 26 U/L (15-37); Alanine Aminotransfer ALT/SGPT 28 U/L (13-56); Albumin, Serum 3.7 g/dL (3.2-5.0); Alkaline Phosphatase 86 U/L (45-117); Bilirubin, Direct 0.13 mg/dL (0.00-0.30); Cholesterol 221 mg/dL (200); Globulin 3.5 g/dL (2.2-4.2); High Density Lipoprotein 48 mg/dL; Protein, Total 7.2 g/dL (6.4-8.2); Triglycerides 283 mg/dL; Very Low Density Lipoprotein 57 mg/dL (5-40)
== END | disposition home or self-care (01) ==
LOC: MTLAB 08:22
PROVIDERS: PCP Family Medicine; Referring Provider Nurse Practitioner Family; Visit Provider Nurse Practitioner Family
DX: E78.00 Pure hypercholesterolemia, unspecified (principal)
CPT/HCPCS: 36415; 80061; 80076

== ENCOUNTER → 2024-01-22 | Outpatient (CLI) | payer MEDICARE, OTHER, SELFPAY ==
--- NOTE | 2024-01-22 10:11 | BI_ITS ---
MAMMOGRAPHY - BILATERAL SCREENING REASON FOR EXAM: Female, 78 years old. Routine annual screening examination. PERTINENT HISTORY: Non-contributory. TECHNIQUE: Digital bilateral breast amanda (3D mammographic acquisition) in the CC and MLO projections. 2-D mediolateral oblique (MLO) and craniocaudad (CC) views of both breasts were obtained. CAD: Full Field Digital Mammography with Computer Added Detection was performed. COMPARISON: Comparison is made with prior study dated October 23, 2022 and August 21, 2021. FINDINGS: Breast Composition: The breasts are almost entirely fatty. There are no dominant masses or suspicious calcifications. No other significant abnormalities are identified. There has been no significant change since the prior study. BI/SCRN MAMM (CAD)W/AMANDA BILAT IMPRESSION: Stable bilateral screening mammogram. Yearly follow-up mammogram recommended. (A) ASSESSMENT CATEGORY: BIRADS Category 1: Negative. A letter regarding these results will be sent to the patient by the facility within 30 days. Approximately 10% of breast cancers are not detected by mammography. A normal mammogram should not delay biopsy of a clinically suspicious abnormality. [id number] Electronically Signed: Vernon Pulliam MD at 11:39 EDT ,
== END | disposition home or self-care (01) ==
PROVIDERS: PCP Family Medicine; Referring Provider Family Medicine; Visit Provider Family Medicine
DX: Z12.31 Encounter for screening mammogram for malignant neoplasm of breast (principal)
CPT/HCPCS: 77063; 77067

== ENCOUNTER → 2024-02-01 | Outpatient (CLI) | payer MEDICARE, OTHER, SELFPAY ==
--- NOTE | 2024-02-01 15:26 | CT_ITS ---
STUDY: CT BRAIN WITHOUT CONTRAST REASON FOR EXAM: Female, 79 years old. New onset bilateral leg weakness and severe headache RADIATION DOSAGE (If Supplied By Facility): CTDIvol = ( 44.99 ) mGy, DLP = ( 796.11 ) mGycm TECHNIQUE: Transaxial CT imaging of the brain was performed without administration of intravenous contrast material. Individualized dose optimization techniques were used for this CT. COMPARISON: MR brain April 22, 2022. CT brain same day. FINDINGS: Normal soft tissue structures. Normal calvarium. There is moderate cerebral atrophy with widening of the extra-axial spaces and ventricular dilatation. There are areas of decreased attenuation within the white matter tracts of the supratentorial brain, consistent with microvascular disease changes. Normal basal ganglia and thalami. Normal brainstem. Normal cerebellum. There is no intracranial hemorrhage. There are no findings of an acute ischemic infarction. Normal visualized paranasal sinuses. CT/Brain/Head without Contrast IMPRESSION: Chronic involutional changes of the brain. Electronically Signed: Jose Yousif MD at 17:17 EDT ,
== END | disposition home or self-care (01) ==
LOC: CT 15:26
PROVIDERS: PCP Family Medicine; Referring Provider Family Medicine; Visit Provider Family Medicine
DX: R51.9 Headache, unspecified (principal)
CPT/HCPCS: 70450

== ENCOUNTER 2024-02-04 11:19 | Outpatient (RCR) | payer MEDICARE, OTHER, SELFPAY ==
[2023-11-18 23:37] VITALS: BMI 30.7
[2024-02-04 15:26] LABS: International Normalized Ratio 1.9
== END 2024-02-16 22:00 | disposition home or self-care (01) ==
LOC: MTLAB 11:19
PROVIDERS: Family Provider Family Medicine; PCP Family Medicine; Referring Provider Internal Medicine Cardiovascular Disease; Visit Provider Internal Medicine Cardiovascular Disease
DX: I48.0 Paroxysmal atrial fibrillation (principal); Z79.01 Long term (current) use of anticoagulants
CPT/HCPCS: 36415; 85610

== ENCOUNTER 2024-04-12 10:45 | Outpatient (RCR) | payer MEDICARE, OTHER, SELFPAY ==
[2024-02-16 22:00] VITALS: BMI 30.7
[2024-03-29 10:24] LABS: International Normalized Ratio 1.2; Prothrombin Time (Protime)PT. 15.3 SECONDS (11.7-14.9)
[2024-04-12 12:34] LABS: International Normalized Ratio 1.8; Prothrombin Time (Protime)PT. 20.4 SECONDS (11.7-14.9)
== END 2024-04-12 18:00 | disposition home or self-care (01) ==
LOC: MTLAB 10:45
PROVIDERS: Family Provider Family Medicine; PCP Family Medicine; Referring Provider Internal Medicine Cardiovascular Disease; Visit Provider Internal Medicine Cardiovascular Disease
DX: I48.0 Paroxysmal atrial fibrillation (principal); Z79.01 Long term (current) use of anticoagulants
CPT/HCPCS: 36415; 85610

== ENCOUNTER 2024-05-10 14:06 | Outpatient (RCR) | payer MEDICARE, OTHER, SELFPAY ==
[2024-04-18 04:20] VITALS: BMI 30.7
--- NOTE | 2024-05-10 14:10 | RAD_ITS ---
STUDY: X-RAY - RIGHT KNEE REASON FOR EXAM: Female, 79 years old. Knee pain TECHNIQUE: 4 view(s) of the knee. COMPARISON: None. FINDINGS: Normal visualized distal femur. Normal visualized proximal tibia and fibula. Normal proximal tibiofibular articulation. There is severe degenerative arthrosis of the medial femorotibial compartment with severe joint space narrowing. Normal lateral femorotibial compartment. Normal patellofemoral articulation. Minimal joint effusion. RAD/Knee 4 or More Views IMPRESSION: Degenerative arthrosis. Electronically Signed: Vernon Pulliam MD at 9:01 EDT ,
--- NOTE | 2024-05-10 14:15 | RAD_ITS ---
STUDY: X-RAY - RIGHT KNEE REASON FOR EXAM: Female, 79 years old. Knee pain TECHNIQUE: 4 view(s) of the knee. COMPARISON: None. FINDINGS: Normal visualized distal femur. Normal visualized proximal tibia and fibula. Normal proximal tibiofibular articulation. There is moderate degenerative arthrosis of the medial femorotibial compartment with moderate joint space narrowing. Normal lateral femorotibial compartment. Normal patellofemoral articulation. The soft tissue structures are unremarkable. RAD/Knee 4 or More Views IMPRESSION: Degenerative arthrosis. Electronically Signed: Vernon Pulliam MD at 9:00 EDT ,
[2024-05-10 17:46] LABS: Absolute Lymphocyte Count 3.66 X10^3/uL (0.83-4.51); Absolute Neutrophil Count 6.2 X10^3/uL (2.0-7.7); Basophil# 0.05 X10^3/uL; Basophil% 0.5 % (0-1); Eosinophil# 0.13 X10^3/uL; Eosinophils% 1.2 % (0-5); Hematocrit 37.8 % (37-47); Hemoglobin 12.7 g/dL (12.0-15.0); Lymphocyte # 3.66 X10^3/ul (0.83-4.51); Lymphocyte % 34.2 % (19-41); Mean Corp Hgb Conc 33.6 g/dL (32-36); Mean Corpuscular Hgb 32.2 pg (27.0-32.0); Mean Corpuscular Volume 95.9 fL (81-99); Mean Platelet Vol. 11.2 fl (6.2-12.0); Monocyte# 0.68 X10^3/uL; Monocyte% 6.4 % (0-10); NRBC Flagged by Analyzer 0 % (0-5); Neutrophil # 6.15 X10^3/uL (2.7-7.7); Neutrophil % 57.4 % (47-70); Platelet Count 313 K/mm3 (150-450); RBC Distribution Width CV 12.3 % (11.6-14.6); RBC Distribution Width SD 42.8 fl (35.1-43.9); Red Blood Count 3.94 M/mm3 (4.2-5.4); White Blood Count 10.7 K/mm3 (4.4-11.0)
[2024-05-10 17:54] LABS: International Normalized Ratio 3.1; Prothrombin Time (Protime)PT. 31.4 SECONDS (11.7-14.9)
[2024-05-10 18:09] LABS: Vitamin D,25 Hydroxy 49.1 ng/mL
[2024-05-10 18:27] LABS: AST(SGOT) 31 U/L (15-37); Alanine Aminotransfer ALT/SGPT 36 U/L (13-56); Albumin, Serum 3.9 g/dL (3.2-5.0); Alkaline Phosphatase 85 U/L (45-117); Anion Gap 12 (5-15); BUN 22 mg/dL (7-18); BUN/Creat Ratio 26.5 RATIO (10-20); Calcium,Total 9.3 mg/dL (8.5-10.1); Chloride 103 mmol/L (98-107); Cholesterol 209 mg/dL (200); Creatinine, Serum 0.83 mg/dL (0.55-1.02); EST Glomerular Filtration Rate 70 mL/min (>60); Est Glom Filt Rate - Afr Amer 85 mL/min (>60); Globulin 3.8 g/dL (2.2-4.2); Glucose 100 mg/dL (74-106); High Density Lipoprotein 49 mg/dL; Potassium 4.1 mmol/L (3.5-5.1); Protein, Total 7.7 g/dL (6.4-8.2); Sodium Level 135 mmol/L (136-145); Triglycerides 331 mg/dL; Very Low Density Lipoprotein 66 mg/dL (5-40)
== END 2024-05-18 18:00 | disposition home or self-care (01) ==
LOC: MTLAB 14:06
PROVIDERS: Family Provider Family Medicine; PCP Family Medicine; Referring Provider Internal Medicine Cardiovascular Disease; Visit Provider Internal Medicine Cardiovascular Disease
DX: I48.0 Paroxysmal atrial fibrillation (principal); Z79.01 Long term (current) use of anticoagulants; M25.562 Pain in left knee; M25.561 Pain in right knee; I10 Essential (primary) hypertension; E78.5 Hyperlipidemia, unspecified; E55.9 Vitamin D deficiency, unspecified
CPT/HCPCS: 36415; 73564; 80053; 80061; 82306; 84443; 85025; 85610

== ENCOUNTER → 2024-06-11 | Outpatient (CLI) | payer MEDICARE, OTHER, SELFPAY ==
--- NOTE | 2024-06-11 11:15 | MRI_ITS ---
INDICATION: BACK PAIN RADIATING INTO LEGS Left hip pain. EXAMINATION: MR Spine Lumbar W/O Contrast TECHNIQUE: Multiplanar and multisequence MR images of the lumbar spine. IV Contrast Dosage and Agent: None. COMPARISON: MRI lumbar spine, 02/28/2023 and lumbar spine radiographs, 06/02/2024. FINDINGS: VERTEBRAE: Vertebral body heights are preserved. No marrow edema or fracture. Modic type II endplate change at L4-5 with near complete intervertebral disc height loss. VERTEBRAL ALIGNMENT: Minimal degenerative grade 1 anterolisthesis of L5 upon S1. There is preservation of the normal lumbar lordosis. CORD: Normal position and signal intensity of the conus medullaris. Conus medullary terminates normally at L2. SOFT TISSUES: Aorta is normal in caliber. Extrarenal pelves. AXIAL IMAGES: T12-L1, L1-2: No disc herniation, spinal canal stenosis, or neural foraminal narrowing. L2-3: Mild disc bulging. Moderate bilateral facet arthrosis. No spinal canal or foraminal narrowing. L3-4: Mild, diffuse disc bulging. There is mild to moderate facet arthropathy and ligamentum flavum thickening. Mild spinal canal stenosis. Mild left greater than right foraminal narrowing. Abutment without impingement of the left L4 nerve root. L4-5: Chronic discogenic changes, endplate osteophyte formation. There is moderate facet degenerative change. Mild spinal canal stenosis. Subarticular recess narrowing and impingement of the traversing L5 nerve roots bilaterally. Mild right greater than left foraminal narrowing. L5-S1: Disc uncovering/disc bulging. There is moderate bilateral facet arthropathy and ligamentum flavum thickening. Exophytic synovial cyst from the left facet with mass effect upon the left S1 nerve root. Mild overall spinal canal narrowing. Mild left greater than right foraminal narrowing. MRI/Spine Lumbar (Routine) IMPRESSION: Multilevel degenerative changes similar to the prior examination. There are degrees of spinal canal and neural foraminal stenosis. Impingement of the bilateral L5 nerve roots and abutment without impingement of the left L4 nerve root. Electronically Signed: Adin Hankins DO at 21:14 EDT ,
== END | disposition home or self-care (01) ==
LOC: MRI 11:12
PROVIDERS: PCP Family Medicine; Referring Provider Orthopaedic Surgery Orthopaedic Surgery of the Spine; Visit Provider Orthopaedic Surgery Orthopaedic Surgery of the Spine
DX: M43.16 Spondylolisthesis, lumbar region (principal)
CPT/HCPCS: 72148

== ENCOUNTER 2024-06-21 10:00 | Outpatient (RCR) | payer MEDICARE, OTHER, SELFPAY ==
--- NOTE | 2024-05-23 13:16 | HP.PTEVAL ---
Patient's Visit Information Visit Information Visit Information: QUYEN LEVI is a 79 year old F referred to Physical Therapy by Dr. Joon Mckay MD with a diagnosis of Back pain/balance. Date of Evaluation: 05/23/24 Physical Therapist: WEI Juarez Visit Plan Frequency: 2x /Week Duration: 2 Months Plan: 2X/ week for 8 weeks for light neutral spine core stability, LE strengthening (per pt tolerance....she sometimes is worse if pushed too hard), some balance starting in // bars, gait training with a straight cane or rollator. Pt was in pain in her back with just the eval so we will need to go very slow with her. She will be seeing Dr Babcock soon for a consult ÁLVARO. Recommended pt use a rollator and at the very least a straight cane. Subjective Subjective: Pt is having trouble with her lumbar spine. Dr Warren said she needed surgery but he did not recommend it due to her age. She has where her spinal cord is soft. 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 She was doing well until a year ago when she had pain in her LB. She was seeing Dr Mckay and that is not going well. Injections do not last long. 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 She has no steps. She drives. She could not feel her L foot due to neuropathy but her R foot is fine to drive. She has pain through out her LB and pain up her legs from neuropathy up to her knees. She uses a rollator at home and when she walks at home. When she gets home she gets painful in her back. Her balance is not good. No falls lately. She walks in today with a straight cane. If she gets out f bed at night or sits for awhile her legs are really weak. Pain back pain: Pain Intensity (Out of 10): 2 R leg pain: Pain Intensity (Out of 10): 1 L leg pain: Pain Intensity (Out of 10): 2 Objective Objective: Gait: walks with a straight cane with decrease stride length and decrease stance time on the L LE, flexed trunk. Pt is able to heel and toe raise with UE support Patella DTR 3+/3 B LE MMT: R hip flex 11.9 and L 8.2 (could feel it in her back) R knee ext 17.2 and L 18.2 R knee flex 10 and L 5.8 R DF 11 and L 6.6 Patella DTR's: 3+/3 Trunk AROM: flex 25%, Ext 50% (increase pain), SB R 100% and L 75%, Rot B 50% FGA: 4 (pt not able to stand still with EC). Balance/Special Test Scores Functional Gait Assessment Score: 4 % Disability: 86.6700 Oswestry Low Back Score: 19 Goals Goal 1:: I HEP Goal Time Frame: 6-8 Weeks Goal 2:: Increase LE strength (at the time of the eval: LE MMT: R hip flex 11.9 and L 8.2 (could feel it in her back) R knee ext 17.2 and L 18.2 R knee flex 10 and L 5.8 R DF 11 and L 6.6). Goal Time Frame: 6-8 Weeks Goal 3:: Be able to walk with increase strides and more upright posture with a straight cane with CGA Goal Time Frame: 6-8 Weeks Goal 4:: Be able to complete PT session without having increased pain Goal Time Frame: 6-8 Weeks Rehabilitation Potential Rehabilitation Potential: Good Anticipated Interventions Patient/Client Instruction: Educate patient on: Condition and Plan of Care For the Purpose of:: To decrease pain, To increase ROM, To improve nutrient delivery to tissue, To improve muscle performance and motor function, To improve ability to perform ADL's, To improve performance and independence with ADL's, To decrease level of supervision to perform tasks, To improve ability of physical actions for home/community/work/leisure, To improve health of tissue, To improve balance and To improve safety with gait Therapeutic Exercise to Include: Strength training, Endurance training, Balance training, Body mechanics, Postural training, Flexibilty training, Gait and locomotor training, Neuromotor development, Active ROM and Dynamic Lumbar Stabilization For the Purpose of:: To decrease pain, To improve nutrient delivery to tissue, To increase oxygenation perfusion, To improve muscle performance and motor function, To improve ability to perform ADL's, To improve performance and independence with ADL's, To decrease level of supervision to perform tasks, To improve ability of physical actions for home/community/work/leisure, To improve gait and locomotor functions, To improve health of tissue, To increase flexibility/ROM, To improve balance and To improve safety with gait Functional Training to Include: Gait training For the Purpose of:: To improve gait and locomotor functions Thermo therapy (hot pack): Yes For the Purpose of:: To decrease pain and To improve health of tissue Text: Thank you for the opportunity to evaluate your patient. For Medicare and Medicare HMO plans, please review the plan of care and approve it. It will need to be FAXED BACK to us at [phone] for Medicare purposes. For Medicare only, by signing this I certify the plan of care. Please let me know if there are questions or concerns regarding this plan of care. Physician Signature: Date:
--- NOTE | 2024-06-21 11:01 | HP.PTDCSUM ---
Discharge Summary D/C summary: It has been my pleasure to treat QUYEN LEVI referred by Dr. Joon Mckay MD, with the diagnosis of Back pain/balance for a total of 8 visit(s). Discharge Date: 06/21/24 Please see the following information for a summary of their discharge status. Subjective Subjective: Pt needs to have surgery but she does not want to. She might just try injections next. She does not want to try more PT and wants to do exercises at home She feels good after the therapy Pain back pain: Pain Intensity (Out of 10): 1 R leg pain: Pain Intensity (Out of 10): 0 L leg pain: Pain Intensity (Out of 10): 0 Overall Improvement % Improvement: 0 Objective Objective/Function: LE MMT: R hip flex 11.9 and L 8.2 (could feel it in her back) R knee ext 19 and L 18.2 R knee flex 10 and L 5.8 R DF 12.3 and L 9.7 She does not feel she is getting any better. Goals Goal 1:: I HEP Goal 2:: Increase LE strength (at the time of the eval: LE MMT: R hip flex 11.9 and L 8.2 (could feel it in her back) R knee ext 17.2 and L 18.2 R knee flex 10 and L 5.8 R DF 11 and L 6.6). Goal Progress: Not Progressing Goal 3:: Be able to walk with increase strides and more upright posture with a straight cane with CGA Goal Progress: Not Progressing Goal 4:: Be able to complete PT session without having increased pain Goal Progress: Not Progressing Plan Plan: 2X/ week for 8 weeks for light neutral spine core stability, LE strengthening (per pt tolerance....she sometimes is worse if pushed too hard), some balance starting in // bars, gait training with a straight cane or rollator. Pt was in pain in her back with just the eval so we will need to go very slow with her. She will be seeing Dr Babcock soon for a consult ÁLVARO. Recommended pt use a rollator and at the very least a straight cane. D/C Information Discharge Comments: DC PT to HEP d/c sentence: If there are questions or concerns regarding this patient's physical therapy, please feel free to call me at [phone]. Thank you for the referral of this patient. Sincerely, Heidi Shearer, MPT Balance/Gait/Functional tests Balance/Special Test Scores Functional Gait Assessment Score: 4 % Disability: 86.6700 Oswestry Low Back Score: 19 Improvement % Improvement: 0
== END 2024-06-21 19:00 | disposition home or self-care (01) ==
LOC: PT 10:00
PROVIDERS: PCP Family Medicine; Referring Provider Anesthesiology Pain Medicine; Visit Provider Anesthesiology Pain Medicine
DX: M54.9 Dorsalgia, unspecified (principal); R26.81 Unsteadiness on feet
CPT/HCPCS: 97110; 97162; 97530

== ENCOUNTER 2024-07-14 08:21 | Outpatient (RCR) | payer MEDICARE, OTHER, SELFPAY ==
[2024-05-18 23:13] VITALS: BMI 30.7
[2024-06-30 12:31] LABS: International Normalized Ratio 2.5
[2024-07-14 08:54] LABS: International Normalized Ratio 1.2; Prothrombin Time (Protime)PT. 14.9 SECONDS (11.7-14.9)
== END 2024-07-14 18:00 | disposition home or self-care (01) ==
LOC: LAB 08:21
PROVIDERS: Family Provider Family Medicine; PCP Family Medicine; Referring Provider Internal Medicine Cardiovascular Disease; Visit Provider Internal Medicine Cardiovascular Disease
DX: I48.0 Paroxysmal atrial fibrillation (principal); Z79.01 Long term (current) use of anticoagulants
CPT/HCPCS: 36415; 85610

== ENCOUNTER 2024-08-02 11:27 | Outpatient (RCR) | payer MEDICARE, OTHER, SELFPAY ==
[2024-07-18 22:48] VITALS: BMI 30.7
[2024-08-02 15:42] LABS: International Normalized Ratio 1.5; Prothrombin Time (Protime)PT. 17.6 SECONDS (11.7-14.9)
== END 2024-08-02 18:00 | disposition home or self-care (01) ==
LOC: MTLAB 11:27
PROVIDERS: Family Provider Family Medicine; PCP Family Medicine; Referring Provider Internal Medicine Cardiovascular Disease; Visit Provider Internal Medicine Cardiovascular Disease
DX: I48.0 Paroxysmal atrial fibrillation (principal); Z79.01 Long term (current) use of anticoagulants
CPT/HCPCS: 36415; 85610

== ENCOUNTER → 2024-08-05 | Outpatient (CLI) | payer MEDICARE, OTHER, SELFPAY ==
--- NOTE | 2024-08-05 11:09 | RAD_ITS ---
HISTORY RIB PAIN. TECHNIQUE: XR Ribs Unilateral Min 2 Views. COMPARISON: Chest 04/21/2022. FINDINGS: BONES : Mild degenerative change. Cervical spinal fusion hardware noted. No acute displaced rib fracture identified. SOFT TISSUES: Right lung clear. RAD/Ribs Unil 2V No CXR IMPRESSION: No acute fracture identified. Electronically Signed: Lesvia Vasquez MD at 10:17 EDT ,
== END | disposition home or self-care (01) ==
LOC: MTRAD 11:08
PROVIDERS: PCP Family Medicine; Referring Provider Family Medicine; Visit Provider Family Medicine
DX: R07.81 Pleurodynia (principal)
CPT/HCPCS: 71100

== ENCOUNTER 2024-09-05 09:01 | Outpatient (RCR) | payer MEDICARE, OTHER, SELFPAY ==
[2024-08-18 21:06] VITALS: BMI 30.7
[2024-09-05 12:24] LABS: International Normalized Ratio 2.5; Prothrombin Time (Protime)PT. 27.1 SECONDS (11.7-14.9)
[2024-09-05 13:00] LABS: AST(SGOT) 26 U/L (15-37); Alanine Aminotransfer ALT/SGPT 27 U/L (13-56); Albumin, Serum 3.9 g/dL (3.2-5.0); Alkaline Phosphatase 79 U/L (45-117); Bilirubin, Direct 0.16 mg/dL (0.00-0.30); Cholesterol 207 mg/dL (200); Globulin 3.3 g/dL (2.2-4.2); High Density Lipoprotein 54 mg/dL; Protein, Total 7.2 g/dL (6.4-8.2); Triglycerides 218 mg/dL; Very Low Density Lipoprotein 44 mg/dL (5-40)
== END 2024-09-17 18:00 | disposition home or self-care (01) ==
LOC: MTLAB 09:01
PROVIDERS: Nurse Practitioner Family; Family Provider Family Medicine; PCP Family Medicine; Referring Provider Internal Medicine Cardiovascular Disease; Visit Provider Internal Medicine Cardiovascular Disease
DX: I48.0 Paroxysmal atrial fibrillation (principal); Z79.01 Long term (current) use of anticoagulants; I48.92 Unspecified atrial flutter; E78.00 Pure hypercholesterolemia, unspecified
CPT/HCPCS: 36415; 80061; 80076; 85610

== ENCOUNTER → 2024-10-24 | Outpatient (CLI) | payer MEDICARE, OTHER, SELFPAY ==
[2024-10-24 15:39] LABS: Absolute Lymphocyte Count 3.38 X10^3/uL (0.83-4.51); Absolute Neutrophil Count 7.5 X10^3/uL (2.0-7.7); Basophil# 0.06 X10^3/uL; Basophil% 0.5 % (0-1); Eosinophil# 0.08 X10^3/uL; Eosinophils% 0.7 % (0-5); Hematocrit 38.7 % (37-47); Hemoglobin 12.5 g/dL (12.0-15.0); Lymphocyte # 3.38 X10^3/ul (0.83-4.51); Lymphocyte % 28.7 % (19-41); Mean Corp Hgb Conc 32.3 g/dL (32-36); Mean Corpuscular Hgb 31.6 pg (27.0-32.0); Mean Platelet Vol. 11.4 fl (6.2-12.0); Monocyte# 0.71 X10^3/uL; NRBC Flagged by Analyzer 0 % (0-5); Neutrophil # 7.51 X10^3/uL (2.7-7.7); Neutrophil % 63.8 % (47-70); Platelet Count 316 K/mm3 (150-450); RBC Distribution Width SD 46.6 fl (35.1-43.9); Red Blood Count 3.95 M/mm3 (4.2-5.4); White Blood Count 11.8 K/mm3 (4.4-11.0)
[2024-10-24 15:41] LABS: International Normalized Ratio 2.2; Prothrombin Time (Protime)PT. 25.1 SECONDS (11.7-14.9)
[2024-10-24 16:17] LABS: ALB/GLOB Ratio 1.2 RATIO (0.9-2.4); AST(SGOT) 26 U/L (15-37); Alanine Aminotransfer ALT/SGPT 31 U/L (13-56); Albumin, Serum 3.8 g/dL (3.2-5.0); Alkaline Phosphatase 86 U/L (45-117); Anion Gap 8 (5-15); BUN 15 mg/dL (7-18); Calcium,Total 9.3 mg/dL (8.5-10.1); Chloride 106 mmol/L (98-107); Creatinine, Serum 0.94 mg/dL (0.55-1.02); EST Glomerular Filtration Rate 61 mL/min (>60); Est Glom Filt Rate - Afr Amer 74 mL/min (>60); Globulin 3.2 g/dL (2.2-4.2); Glucose 96 mg/dL (74-106); Sodium Level 137 mmol/L (136-145)
[2024-10-24 16:21] LABS: Vitamin D,25 Hydroxy 41.9 ng/mL
== END | disposition home or self-care (01) ==
LOC: MFPLAB 10:31
PROVIDERS: Internal Medicine Cardiovascular Disease; PCP Family Medicine; Referring Provider Family Medicine; Visit Provider Family Medicine
DX: R53.83 Other fatigue (principal); I48.0 Paroxysmal atrial fibrillation; I48.92 Unspecified atrial flutter; Z79.01 Long term (current) use of anticoagulants
CPT/HCPCS: 36415; 80053; 82306; 84443; 85025; 85610

== ENCOUNTER 2024-12-15 12:51 | Outpatient (RCR) | payer MEDICARE, OTHER, SELFPAY ==
[2024-09-18 02:08] VITALS: BMI 30.7
[2024-12-15 15:08] LABS: International Normalized Ratio 3.7; Prothrombin Time (Protime)PT. 37.1 SECONDS (11.7-14.9)
== END 2024-12-16 18:00 | disposition home or self-care (01) ==
LOC: MTLAB 12:51
PROVIDERS: Family Provider Family Medicine; PCP Family Medicine; Referring Provider Internal Medicine Cardiovascular Disease; Visit Provider Internal Medicine Cardiovascular Disease
DX: I48.0 Paroxysmal atrial fibrillation (principal); Z79.01 Long term (current) use of anticoagulants
CPT/HCPCS: 36415; 85610

== ENCOUNTER → 2024-12-22 | Outpatient (CLI) | payer MEDICARE, OTHER, SELFPAY | END | disposition home or self-care (01) | LOC: PSN 08:00 | PROVIDERS: PCP Family Medicine; Referring Provider Nurse Practitioner Family; Visit Provider Nurse Practitioner Family | DX: I48.0 Paroxysmal atrial fibrillation (principal) | CPT/HCPCS: 93225; 93226 ==

== ENCOUNTER 2025-01-03 10:26 | Outpatient (RCR) | payer MEDICARE, OTHER, SELFPAY ==
[2024-12-17 07:30] VITALS: BMI 30.7
[2024-12-19 15:40] LABS: Absolute Lymphocyte Count 3.31 X10^3/uL (0.83-4.51); Absolute Neutrophil Count 5.6 X10^3/uL (2.0-7.7); Basophil# 0.03 X10^3/uL; Basophil% 0.3 % (0-1); Eosinophil# 0.15 X10^3/uL; Eosinophils% 1.5 % (0-5); Hematocrit 38.8 % (37-47); Hemoglobin 13.2 g/dL (12.0-15.0); Lymphocyte # 3.31 X10^3/ul (0.83-4.51); Lymphocyte % 33.8 % (19-41); Mean Corpuscular Hgb 32.3 pg (27.0-32.0); Mean Corpuscular Volume 94.9 fL (81-99); Mean Platelet Vol. 11.5 fl (6.2-12.0); Monocyte# 0.66 X10^3/uL; Monocyte% 6.7 % (0-10); NRBC Flagged by Analyzer 0 % (0-5); Neutrophil # 5.61 X10^3/uL (2.7-7.7); Neutrophil % 57.4 % (47-70); Platelet Count 330 K/mm3 (150-450); RBC Distribution Width SD 41.6 fl (35.1-43.9); Red Blood Count 4.09 M/mm3 (4.2-5.4); White Blood Count 9.8 K/mm3 (4.4-11.0)
[2024-12-19 16:17] LABS: International Normalized Ratio 1.6
[2024-12-19 21:23] LABS: PTHIN 29 pg/mL (11-61)
[2024-12-19 21:33] LABS: ALB/GLOB Ratio 1.5 RATIO (0.9-2.4); AST(SGOT) 30 U/L (<=31); Alanine Aminotransfer ALT/SGPT 22 U/L (<=34); Albumin, Serum 4.4 g/dL (3.4-4.8); Alkaline Phosphatase 94 U/L (35-104); Anion Gap 14 (5-15); BUN 18 mg/dL (4-19); BUN/Creat Ratio 21.6 RATIO (10-20); Calcium 9.8 mg/dL (7.6-11.0); Carbon Dioxide 19.4 mmol/L (22.0-29.0); Chloride 101 mmol/L (96-108); Creatinine, Serum 0.81 mg/dL (0.70-1.20); EST Glomerular Filtration Rate 73 (>60); Globulin 2.8 g/dL (2.2-4.2); Glucose 90 mg/dL (70-99); Potassium 4.4 mmol/L (3.3-5.1); Pro- Brain NATRIURETIC PEPTIDE 748 pg/mL (<=1800); Protein, Total 7.2 g/dL (5.9-8.4); Sodium Level 135 mmol/L (133-145); Total Bilirubin 0.37 mg/dL (0.00-1.30)
[2024-12-26 13:07] LABS: International Normalized Ratio 1.6; Prothrombin Time (Protime)PT. 19.1 SECONDS (11.7-14.9)
[2025-01-03 12:18] LABS: International Normalized Ratio 2.7
== END 2025-01-03 18:00 | disposition home or self-care (01) ==
LOC: MTLAB 10:26
PROVIDERS: Nurse Practitioner Family; Family Provider Family Medicine; PCP Family Medicine; Referring Provider Internal Medicine Cardiovascular Disease; Visit Provider Internal Medicine Cardiovascular Disease
DX: I48.0 Paroxysmal atrial fibrillation (principal); Z79.01 Long term (current) use of anticoagulants; R06.09 Other forms of dyspnea; I48.92 Unspecified atrial flutter
CPT/HCPCS: 36415; 80053; 83880; 83970; 85025; 85610

== ENCOUNTER → 2025-01-23 | Outpatient (CLI) | payer MEDICARE, OTHER, SELFPAY ==
--- NOTE | 2025-01-23 12:38 | ECHOD_ITS ---
Reason For Study Reason For Study: ATRIAL FIB-FLUTTER Procedure This was a 2D Doppler, Color Flow transthoracic echocardiogram. Exam performed in department. Left Ventricle Normal LV size. Left ventricular systolic function is normal. The left ventricular ejection fraction is 65 %. No regional wall motion abnormalities noted. Right Ventricle Normal RV size. Normal systolic function. Atria Normal left atrium. Normal right atrium. Mitral Valve Normal mitral valve. Mild (1+) mitral valve insufficiency. Tricuspid Valve Normal tricuspid valve. Mild (1+) tricuspid valve insufficiency. Pulmonary artery systolic pressure is 28 mmHg. Aortic Valve Trisinus/trileaflet aortic valve. Pulmonic Valve Normal pulmonic valve. Great Vessels Normal aortic root. The pulmonary artery is normal size. Inferior vena cava collapse with respiration. Pericardium/Pleural No pericardial effusion. MMode/2D Measurements & Calculations LVIDd: 3.5 cm IVSd: 0.90 cm Ao root diam: 3.1 cm LVIDs: 2.4 cm LVPWd: 0.95 cm RVDd: 2.9 cm FS: 31.8 % LAV(MOD-bp): 29.9 ml LVAd ap4: 20.1 cm2 SV(MOD-sp4): 32.0 ml LAV(MOD-bp) Indexed: 17.0 ml/m2 LVLd ap4: 6.1 cm SI(MOD-sp4): 18.2 ml/m2 LAV(MOD-sp2): 29.0 ml EDV(MOD-sp4): 53.7 ml LAV(MOD-sp4): 27.2 ml EDV(sp4-el): 56.4 ml LVAs ap4: 11.4 cm2 LVLs ap4: 5.1 cm ESV(MOD-sp4): 21.7 ml ESV(sp4-el): 21.6 ml EF(MOD-sp4): 59.6 % EF(sp4-el): 61.7 % SV(sp4-el): 34.8 ml LA A4 area: 12.9 cm2 LA dimension(2D): 3.6 cm RA A4 area: 12.3 cm2 TAPSE: 1.8 cm Doppler Measurements & Calculations MV E max sonia: 90.0 cm/sec Ao V2 max: 84.0 cm/sec LV V1 max: 72.1 cm/sec Ao max P.8 mmHg LV V1 max P.1 mmHg PA V2 max: 80.4 cm/sec TR max sonia: 246.8 cm/sec TR max P.4 mmHg ECHO/Echo Complete Interpretation Summary Normal LV size. Left ventricular systolic function is normal. The left ventricular ejection fraction is 65 %. Mild (1+) mitral valve insufficiency. Pulmonary artery systolic pressure is 28 mmHg. Ordering Physician: Romero Reaves Referring Physician: KASH DELGADO Performed By: [place] RDCS
== END | disposition home or self-care (01) ==
LOC: CVS 12:38
PROVIDERS: PCP Family Medicine; Referring Provider Nurse Practitioner Family; Visit Provider Nurse Practitioner Family
DX: I48.0 Paroxysmal atrial fibrillation (principal); I10 Essential (primary) hypertension; R06.00 Dyspnea, unspecified; R53.1 Weakness
CPT/HCPCS: 93306

== ENCOUNTER 2025-02-06 10:47 | Outpatient (RCR) | payer MEDICARE, OTHER, SELFPAY ==
[2025-01-16 23:11] VITALS: BMI 30.7
[2025-02-06 12:27] LABS: International Normalized Ratio 2.8; Prothrombin Time (Protime)PT. 30.4 SECONDS (11.7-14.9)
== END 2025-02-15 18:00 | disposition home or self-care (01) ==
LOC: MTLAB 10:47
PROVIDERS: Family Provider Family Medicine; PCP Family Medicine; Referring Provider Internal Medicine Cardiovascular Disease; Visit Provider Internal Medicine Cardiovascular Disease
DX: I48.91 Unspecified atrial fibrillation (principal); Z79.01 Long term (current) use of anticoagulants
CPT/HCPCS: 36415; 85610

== ENCOUNTER → 2025-02-23 | Outpatient (CLI) | payer MEDICARE, OTHER, SELFPAY ==
--- NOTE | 2025-02-23 09:22 | BI_ITS ---
EXAM: SCRN MAMM (CAD)W/AMANDA BILAT DATE: 02/23/2025 CLINICAL HISTORY: F, Age 80 y/o , SCREENING BREAST CANCER RISK ASSESSMENT: Not reported TECHNIQUE: Bilateral screening digital breast tomosynthesis with 2D and 3D images. Computer aided detection. COMPARISON: Prior exam(s) were compared FINDINGS: TISSUE DENSITY: The breast tissue is almost entirely fatty. Bilateral Breast Mammographic Findings: No suspicious masses, calcifications or other abnormalities are identified. BI/SCRN MAMM (CAD)W/AMNADA BILAT IMPRESSION: OVERALL FINAL ASSESSMENT: BIRADS 1 NEGATIVE RECOMMENDATION: Routine annual follow-up in 1 Year A letter with findings and recommendations will be mailed to the patient. Reading Location: [id number]
== END | disposition home or self-care (01) ==
LOC: OPBI 09:21
PROVIDERS: PCP Family Medicine; Referring Provider Family Medicine; Visit Provider Family Medicine
DX: Z12.31 Encounter for screening mammogram for malignant neoplasm of breast (principal)
CPT/HCPCS: 77063; 77067

== ENCOUNTER 2025-03-02 10:15 | Outpatient (RCR) | payer MEDICARE, OTHER, SELFPAY ==
[2025-02-15 22:25] VITALS: BMI 30.7
[2025-03-02 12:41] LABS: International Normalized Ratio 2.7; Prothrombin Time (Protime)PT. 29.5 SECONDS (11.7-14.9)
== END 2025-03-02 18:00 | disposition home or self-care (01) ==
LOC: MTLAB 10:15
PROVIDERS: Family Provider Family Medicine; PCP Family Medicine; Referring Provider Internal Medicine Cardiovascular Disease; Visit Provider Internal Medicine Cardiovascular Disease
DX: Z79.01 Long term (current) use of anticoagulants
CPT/HCPCS: 36415; 85610

== ENCOUNTER → 2025-03-15 | Outpatient (CLI) | payer MEDICARE, OTHER, SELFPAY | END | disposition home or self-care (01) | LOC: PSN 11:48 | PROVIDERS: PCP Family Medicine; Referring Provider Nurse Practitioner Family; Visit Provider Nurse Practitioner Family | DX: I47.10 Supraventricular tachycardia, unspecified (principal); I48.0 Paroxysmal atrial fibrillation; I48.92 Unspecified atrial flutter | CPT/HCPCS: 93225; 93226 ==

== ENCOUNTER 2025-04-03 10:56 | Outpatient (RCR) | payer MEDICARE, OTHER, SELFPAY ==
[2025-03-19 19:13] VITALS: BMI 30.7
[2025-04-03 12:43] LABS: International Normalized Ratio 2.5; Prothrombin Time (Protime)PT. 27.4 SECONDS (11.7-14.9)
== END 2025-04-03 18:00 | disposition home or self-care (01) ==
LOC: MTLAB 10:56
PROVIDERS: Family Provider Family Medicine; PCP Family Medicine; Referring Provider Internal Medicine Cardiovascular Disease; Visit Provider Internal Medicine Cardiovascular Disease
DX: Z79.01 Long term (current) use of anticoagulants (principal)
CPT/HCPCS: 36415; 85610

== ENCOUNTER 2025-05-05 13:41 | Outpatient (RCR) | payer MEDICARE, OTHER, SELFPAY ==
[2025-05-05 15:43] LABS: Prothrombin Time (Protime)PT. 36.2 SECONDS (11.7-14.9)
== END 2025-05-18 18:00 | disposition home or self-care (01) ==
LOC: MTLAB 13:41
PROVIDERS: Family Provider Family Medicine; PCP Family Medicine; Referring Provider Internal Medicine Cardiovascular Disease; Visit Provider Internal Medicine Cardiovascular Disease
DX: Z79.01 Long term (current) use of anticoagulants (principal)
CPT/HCPCS: 36415; 85610

== ENCOUNTER → 2025-05-29 | Outpatient (CLI) | payer MEDICARE, OTHER, SELFPAY | END | disposition home or self-care (01) | LOC: CVS 06:48 | PROVIDERS: PCP Family Medicine; Referring Provider Nurse Practitioner Family; Visit Provider Nurse Practitioner Family | DX: R07.9 Chest pain, unspecified (principal); I48.92 Unspecified atrial flutter; I10 Essential (primary) hypertension; E78.00 Pure hypercholesterolemia, unspecified | CPT/HCPCS: 78452; 93017; A9500; A4216; J2785 ==

== ENCOUNTER 2025-06-02 15:43 | Outpatient (RCR) | payer MEDICARE, OTHER, SELFPAY ==
[2025-05-19 12:25] LABS: Prothrombin Time (Protime)PT. 34.0 SECONDS (11.7-14.9)
[2025-06-02 18:52] LABS: Prothrombin Time (Protime)PT. 31.0 SECONDS (11.7-14.9)
== END 2025-06-02 18:00 | disposition home or self-care (01) ==
LOC: MTLAB 15:43
PROVIDERS: Family Provider Family Medicine; PCP Family Medicine; Referring Provider Internal Medicine Cardiovascular Disease; Visit Provider Internal Medicine Cardiovascular Disease
DX: Z79.01 Long term (current) use of anticoagulants (principal)
CPT/HCPCS: 36415; 85610

== ENCOUNTER 2025-07-07 13:16 | Outpatient (RCR) | payer MEDICARE, OTHER, SELFPAY ==
[2025-06-23 18:59] LABS: Prothrombin Time (Protime)PT. 26.8 SECONDS (11.7-14.9)
[2025-07-07 15:29] LABS: Prothrombin Time (Protime)PT. 23.2 SECONDS (11.7-14.9)
== END 2025-07-18 18:00 | disposition home or self-care (01) ==
LOC: MTLAB 13:16
PROVIDERS: Family Provider Family Medicine; PCP Family Medicine; Referring Provider Internal Medicine Cardiovascular Disease; Visit Provider Internal Medicine Cardiovascular Disease
DX: Z79.01 Long term (current) use of anticoagulants (principal)
CPT/HCPCS: 36415; 85610

== ENCOUNTER → 2025-07-13 | Outpatient (CLI) | payer MEDICARE, OTHER, SELFPAY | END | disposition home or self-care (01) | LOC: LABSPEC 11:10 | PROVIDERS: PCP Family Medicine; Visit Provider Family Medicine | DX: N39.0 Urinary tract infection, site not specified (principal) | CPT/HCPCS: 87086 ==

== ENCOUNTER 2025-08-04 10:47 | Outpatient (RCR) | payer MEDICARE, OTHER, SELFPAY ==
[2025-08-04 12:31] LABS: Prothrombin Time (Protime)PT. 35.0 SECONDS (11.7-14.9)
[2025-08-04 12:34] LABS: Hematocrit 35.8 % (37-47); Hemoglobin 12.1 g/dL (12.0-15.0); Immature Granulocytes Count 0.020 X10^3/uL (0.0-0.0); Mean Corp Hgb Conc 33.8 g/dL (32-36); Mean Corpuscular Volume 96.0 fL (81-99); Mean Platelet Vol. 11.3 fl (6.2-12.0); NRBC Flagged by Analyzer 0 % (0-5); Platelet Count 294 K/mm3 (150-450); RBC Distribution Width CV 12.6 % (11.6-14.6); RBC Distribution Width SD 44.5 fl (35.1-43.9); Red Blood Count 3.73 M/mm3 (4.2-5.4); White Blood Count 9.1 K/mm3 (4.4-11.0)
[2025-08-04 13:12] LABS: AST(SGOT) 30 U/L (<=31); Alanine Aminotransfer ALT/SGPT 19 U/L (<=34); Albumin, Serum 4.2 g/dL (3.4-4.8); Alkaline Phosphatase 89 U/L (35-104); Anion Gap 12 (5-15); BUN 16 mg/dL (4-19); BUN/Creat Ratio 18.0 RATIO (10-20); Bilirubin, Direct 0.18 mg/dL (0.00-0.30); Calcium,Total 9.1 mg/dL (7.6-11.0); Carbon Dioxide 21.8 mmol/L (21.0-32.0); Chloride 103 mmol/L (98-108); Globulin 2.5 g/dL (2.2-4.2); Glucose 100 mg/dL (70-99); Potassium 4.4 mmol/L (3.3-5.1)
== END 2025-08-04 18:00 | disposition home or self-care (01) ==
LOC: MTLAB 10:47
PROVIDERS: Nurse Practitioner Family; Family Provider Family Medicine; PCP Family Medicine; Referring Provider Internal Medicine Cardiovascular Disease; Visit Provider Internal Medicine Cardiovascular Disease
DX: R06.09 Other forms of dyspnea; I48.0 Paroxysmal atrial fibrillation; I10 Essential (primary) hypertension; E78.00 Pure hypercholesterolemia, unspecified; R53.83 Other fatigue
CPT/HCPCS: 80048; 80076; 84443; 85025; 85610

== ENCOUNTER → 2025-08-05 | Outpatient (CLI) | payer MEDICARE, OTHER, SELFPAY | END | disposition home or self-care (01) | LOC: LABSPEC 08-07 09:42 | PROVIDERS: PCP Family Medicine; Visit Provider Physician Assistant | DX: R82.90 Unspecified abnormal findings in urine (principal) | CPT/HCPCS: 87077; 87086; 87088; 87186 ==

== ENCOUNTER 2025-08-21 10:14 | Outpatient (RCR) | payer MEDICARE, OTHER, SELFPAY ==
[2025-08-21 12:54] LABS: Prothrombin Time (Protime)PT. 22.2 SECONDS (11.7-14.9)
== END 2025-09-16 18:00 | disposition home or self-care (01) ==
LOC: MTLAB 10:14
PROVIDERS: Family Provider Family Medicine; PCP Family Medicine; Referring Provider Internal Medicine Cardiovascular Disease; Visit Provider Internal Medicine Cardiovascular Disease
DX: I48.0 Paroxysmal atrial fibrillation (principal); Z79.01 Long term (current) use of anticoagulants
CPT/HCPCS: 36415; 82274; 85610

== ENCOUNTER → 2025-09-29 | Outpatient (CLI) | payer MEDICARE, OTHER, SELFPAY ==
--- NOTE | 2025-09-29 12:12 | US_ITS ---
PROCEDURE: KIDNEY AND BLADDER 09/29/2025 REASON FOR EXAM: UTI TECHNIQUE: Procedure Code: USKI Modality: US Procedure: KIDNEY AND BLADDER FINDINGS: Right kidney measures 9.8 cm and left kidney measures 9.8 cm. Extrarenal pelvis noted bilaterally. Normal echotexture of bilateral kidneys. No hydronephrosis. No renal stones. Mildly thickened urinary bladder wall which may reflect cystitis vs nondistention; consider correlation with urinalysis. US/Kidney and Bladder IMPRESSION: No hydronephrosis. Mildly thickened urinary bladder wall which may reflect cystitis vs nondistenti on; consider correlation with urinalysis. Reading Location: [id number]
== END | disposition home or self-care (01) ==
LOC: US 12:09
PROVIDERS: PCP Family Medicine; Referring Provider Urology; Visit Provider Urology
DX: N39.0 Urinary tract infection, site not specified (principal); R31.9 Hematuria, unspecified
CPT/HCPCS: 76770

== ENCOUNTER 2025-10-09 12:24 | Outpatient (RCR) | payer MEDICARE, OTHER, SELFPAY ==
[2025-10-02 11:21] LABS: Prothrombin Time (Protime)PT. 20.3 SECONDS (11.7-14.9)
[2025-10-09 13:12] LABS: Prothrombin Time (Protime)PT. 22.7 SECONDS (11.7-14.9)
== END 2025-10-09 18:00 | disposition home or self-care (01) ==
LOC: LAB 12:24
PROVIDERS: Family Provider Family Medicine; PCP Family Medicine; Referring Provider Internal Medicine Cardiovascular Disease; Visit Provider Internal Medicine Cardiovascular Disease
DX: I48.0 Paroxysmal atrial fibrillation (principal); R06.09 Other forms of dyspnea; I10 Essential (primary) hypertension; E78.00 Pure hypercholesterolemia, unspecified; R53.83 Other fatigue
CPT/HCPCS: 36415; 85610